=== PATIENT | female | born 1945 | race Caucasian/White ===

== ENCOUNTER 2018-06-15 09:22 | Emergency (ER) | payer MEDICARE, OTHER ==
[2018-06-15] MEDS ORDERED: Lidocaine 1% w/Epinephrine 1:100K 20 ML VIAL ONE (10:50)
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
== END 2018-06-15 11:50 | disposition home or self-care (01) ==
LOC: ERS 09:22
DX: S81.812A Laceration without foreign body, left lower leg, initial encounter (principal); S00.03XA Contusion of scalp, initial encounter; E78.5 Hyperlipidemia, unspecified; J44.9 Chronic obstructive pulmonary disease, unspecified; F17.210 Nicotine dependence, cigarettes, uncomplicated; Z79.51 Long term (current) use of inhaled steroids; Z79.899 Other long term (current) drug therapy; V03.99XA Pedestrian with other conveyance injured in collision with car, pick-up truck or van, unspecified whether traffic or nontraffic accident, initial encounter
CPT/HCPCS: 12002; 70450; J2001

== ENCOUNTER 2018-06-16 08:59 | Emergency (ER) | payer MEDICARE, OTHER ==
[2018-06-16] MEDS ORDERED: Bacitracin Zinc 1 Packet ONE (10:40)
== END 2018-06-16 10:53 | disposition home or self-care (01) ==
LOC: ERS 08:59
DX: S50.311A Abrasion of right elbow, initial encounter (principal); S50.811A Abrasion of right forearm, initial encounter; S81.812D Laceration without foreign body, left lower leg, subsequent encounter; E78.5 Hyperlipidemia, unspecified; J44.9 Chronic obstructive pulmonary disease, unspecified; F17.210 Nicotine dependence, cigarettes, uncomplicated; Z79.899 Other long term (current) drug therapy; Z79.51 Long term (current) use of inhaled steroids; V03.99XA Pedestrian with other conveyance injured in collision with car, pick-up truck or van, unspecified whether traffic or nontraffic accident, initial encounter
CPT/HCPCS: 99282

== ENCOUNTER 2018-07-27 08:47 | Outpatient (CLI) | payer MEDICARE ==
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
== END 2018-07-27 08:48 | disposition home or self-care (01) ==
LOC: BICMRI 08:47
PROVIDERS: ATTEND Physician Assistant Medical
DX: S32.009D Unspecified fracture of unspecified lumbar vertebra, subsequent encounter for fracture with routine healing (principal); M47.816 Spondylosis without myelopathy or radiculopathy, lumbar region; M47.814 Spondylosis without myelopathy or radiculopathy, thoracic region
CPT/HCPCS: 72148

== ENCOUNTER 2018-09-07 13:26 | Outpatient (CLI) | payer MEDICARE ==
[~2018-09-07 13:26] MED LIST: Gadobenate Dimeglumine 529 MG/1 ML (20ML VIAL) ONE
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
== END 2018-09-07 13:27 | disposition home or self-care (01) ==
LOC: TBSIIMAG 13:26
PROVIDERS: ATTEND Psychiatry & Neurology Neurology
DX: S06.890A Other specified intracranial injury without loss of consciousness, initial encounter (principal)
CPT/HCPCS: 70553; 82565; A9577

== ENCOUNTER 2018-09-16 07:53 | Outpatient (CLI) | payer MEDICARE ==
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
[2018-09-16] MEDS ORDERED: ISOVUE-370 76%-LOCM 1 ML ONE (10:58)
== END 2018-09-16 07:54 | disposition home or self-care (01) ==
LOC: BICCT 07:53
PROVIDERS: ATTEND Psychiatry & Neurology Neurology
DX: S06.890A Other specified intracranial injury without loss of consciousness, initial encounter (principal); I67.1 Cerebral aneurysm, nonruptured
CPT/HCPCS: 70496; Q9966

== ENCOUNTER 2018-10-24 08:31 | Outpatient (CLI) | payer MEDICARE ==
[2018-10-24 09:58] LABS: Anion Gap 15 mmol/L (10-20); BUN (Urea Nitrogen) 14 mg/dL (9.8-20.1); Calc. Creatinine Clearance 0 mL/min (70-130); Carbon Dioxide 25 mmol/L (23-31); Chloride 106 mmol/L (98-107); Estimated GFR-MDRD 89; Glucose 86 mg/dL (83-110); Potassium 4.2 mmol/L (3.5-5.1); Sodium 142 mmol/L (136-145)
== END 2018-10-24 08:32 | disposition home or self-care (01) ==
LOC: LABBT 08:31
PROVIDERS: ATTEND Neurological Surgery
DX: Z01.812 Encounter for preprocedural laboratory examination (principal); I67.1 Cerebral aneurysm, nonruptured
CPT/HCPCS: 80048

== ENCOUNTER 2018-11-02 05:51 | Day surgery (SDC) | payer MEDICARE ==
[2018-10-24 08:47] VITALS: BMI 19.9
[2018-11-02] MEDS ORDERED: Lidocaine 1% (PF) 30 ML VIAL ONE (06:33)
[2018-11-02] MEDS ORDERED: Heparin 10,000 UNITS/1 ML VIAL ONE (06:33)
[2018-11-02] MEDS ORDERED: Iopamidol 370 76% 50 ML VIAL FS ONE (09:01)
[2018-11-02] MEDS ORDERED: Fentanyl 100 MCG/2 ML VIAL ONE (10:20)
--- NOTE | 2018-11-15 19:11 | CCL ---
DATE OF PROCEDURE: 11/02/18 SURGEON: Lopez Pa M.D. RENAL DIETITIAN: None. INDICATION: Previously identified aneurysm. PROCEDURE: Cerebral angiogram. ANESTHESIA: General. TECHNIQUE: The patient is brought to the angiogram suite and placed on the table in the supine position. Both gr oins were prepped and draped in the usual sterile fashion. 1% lidocaine was used to inject the right groin. A 5 [place] micropuncture set was used to gain access to the right common femoral artery. Using a Seldinger technique, 5 [place] sheath was placed. A 5 [place] diagnostic catheter passed over Asad en guide wire and was then advanced into the aortic arch where the left cerebral artery was selective ly catheterized. An angiogram was performed. The catheter was then removed. Hemostasis was maintained with manual compression. The procedure came to an end without complication. IMPRESSION: The patient underwent successful angiography. 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 The filling portion measure s somewhere between 4 and 5 mm in greatest dimension.
== END 2018-11-02 13:08 | disposition home or self-care (01) ==
LOC: CCL 05:51
PROVIDERS: ATTEND Neurological Surgery
PROC: 03H Upper Arteries, Insertion (ICD-10-PCS; principal; 2018-11-02)
DX: I67.1 Cerebral aneurysm, nonruptured (principal); Z79.1 Long term (current) use of non-steroidal anti-inflammatories (NSAID); Z79.51 Long term (current) use of inhaled steroids; Z79.52 Long term (current) use of systemic steroids; Z79.899 Other long term (current) drug therapy
CPT/HCPCS: 36218; 36226; J1644; J2001; J3010; Q9967

== ENCOUNTER 2018-11-04 17:52 | Emergency (ER) | payer MEDICARE | END 2018-11-04 18:55 | disposition home or self-care (01) | LOC: ERS 17:52 | DX: I97.638 Postprocedural hematoma of a circulatory system organ or structure following other circulatory system procedure (principal); J44.9 Chronic obstructive pulmonary disease, unspecified; E78.5 Hyperlipidemia, unspecified; F17.210 Nicotine dependence, cigarettes, uncomplicated; Z79.899 Other long term (current) drug therapy; Z79.51 Long term (current) use of inhaled steroids | CPT/HCPCS: 99283 ==

== ENCOUNTER 2019-05-27 08:51 | Inpatient (IN) | payer MEDICARE ==
[2019-05-27] MEDS ORDERED: Magnesium 2 GM/50 ML BAG (IN WATER) ONE (09:03)
[2019-05-27] MEDS ORDERED: methylPREDNISolone Sod Succ/PF 125 MG/2 ML VIAL ONE (09:07)
--- NOTE | 2019-05-27 09:31 | RAD ---
Portable chest: HISTORY: Cough COMPARISON: 06/19/2016 FINDINGS:There is confluent consolidation seen throughout the right upper lobe more prominent in the periphery. Diffuse interstitial prominence throughout the right lung. Left lung is clear. Heart and mediastinum unremarkable. IMPRESSION:Diffuse alveolar opacity throughout the right upper lobe peripherally with diffuse interst itial prominence throughout the right lung. Infectious and neoplastic processes are considerations.
[2019-05-27 09:34] LABS: Hemoglobin 14.5 g/dL (12.0-16.0); Mean Corpuscular HGB CONC 31.7 g/dL (32.0-36.0); Mean Corpuscular Hemoglobin 31.8 pg (27.0-31.0); Mean Platelet Volume 8.3 fL (7.4-10.4); Platelet Count 305 thou/uL (130-400); RBC Distribution Width 11.7 % (11.5-14.5); Red Blood Cell (RBC) Count 4.58 mill/uL (4.20-5.40); White Blood Cell (WBC) Count 14.2 thou/uL (4.8-10.8)
[2019-05-27 09:47] LABS: Band 7 % (5-11); Lymphocytes 3 % (21-51); MDiff Complete? YES; Metamyelocyte 1 % (0-0); Monocytes 4 % (0-10); Neutrophil 85 % (42-75); Platelet Morphology Comment Appears Adequate; Vacuoles MODERATE
[2019-05-27 09:50] LABS: ALT (SGPT) 14 U/L (8-55); AST (SGOT) 21 U/L (5-34); Albumin 3.6 g/dL (3.4-4.8); Alkaline Phosphatase 133 U/L (40-110); Anion Gap 20 mmol/L (10-20); BUN (Urea Nitrogen) 15 mg/dL (9.8-20.1); Bilirubin, Total 0.7 mg/dL (0.2-1.2); CK (CPK) 26 U/L (29-168); Calc. Creatinine Clearance 0 mL/min (70-130); Calcium 9.9 mg/dL (7.8-10.44); Carbon Dioxide 21 mmol/L (23-31); Chloride 99 mmol/L (98-107); Estimated GFR-MDRD 71; Globulin 3.7 g/dL (2.4-3.5); Glucose 88 mg/dL (83-110); Lipase 8 U/L (8-78); Potassium 3.7 mmol/L (3.5-5.1); Protein, Total 7.3 g/dL (6.0-8.3); Sodium 136 mmol/L (136-145)
[2019-05-27 10:05] LABS: ALV-art Gradient 99.625 (0-20); Actual Bicarbonate (HCO3a) 18.7 mEq/L (22-28); Analyzer IN Cardio ER; Base Excess (BEa) -3.5 mEq/L (-2.0 to +3.0); CO2 Tension 26.7 mmHg (35.0-45.0); Calcium, Ionized 1.19 mmol/L (1.12-1.30); Carboxyhemoglobin (COHb) 1.7 gm% (0.0-3.0); Hemoglobin (Hb) 13.5 g/dL (12.0-16.0); O2 Tension (PaO2) 80.9 mmHg (> 70.0); Potassium - ABG Lab 3.21 mmol/L (3.70-5.30); Puncture Site LR; pH, Arterial 7.46 (7.35-7.45)
[2019-05-27] MEDS ORDERED: Acetaminophen 500 MG TAB ONE (10:12)
[2019-05-27] MEDS ORDERED: Azithromycin 500 MG VIAL ONE (10:12)
[2019-05-27] MEDS ORDERED: Iopamidol-370 76% 500 ML 1 ML ONE (11:02)
--- NOTE | 2019-05-27 11:12 | CT ---
EXAM: CTA of the chest HISTORY: Coughing up blood COMPARISON: None TECHNIQUE: Multiple contiguous axial images were obtained a CTA of the chest with contrast per pulmon carmen embolism protocol. 3-D oblique MIP reformats and direct coronal reformats were performed. FINDINGS: HEART: Normal in size without focal cardiac abnormality. PULMONARY ARTERIES: Normal in caliber without filling defects to suggest pulmonary emboli. MEDIASTINUM: No hilar or mediastinal lymphadenopathy. LUNGS: Consolidation is seen in the right upper and middle lobes. Central cavitation is seen in these areas of consolidation. Emphysematous changes are seen throughout the lungs. No infiltrates are seen in the right lower lobe or left lung. PLEURAL SPACE: No pleural effusion or pneumothorax. CHEST WALL SOFT TISSUES: Unremarkable VISUALIZED OSSEOUS STRUCTURES: Unremarkable VISUALIZED SUBDIAPHRAGMATIC STRUCTURES: Unremarkable IMPRESSION: 1. No evidence of pulmonary thromboembolism 2. Right upper and middle lobe infiltrates with central cavitation. An infectious process is likely. Tuberculosis must be excluded.
[2019-05-27] MEDS ORDERED: Acetaminophen 325 MG TAB PO PRN (13:23)
[2019-05-27 16:01] VITALS: BMI 21.4
--- NOTE | 2019-05-27 16:59 | CON ---
DATE OF CONSULTATION: 05/27/2019 This encompassed 70 minutes of time, of that time, greater than 50% was spent with the patient and/or the patient's unit in the emergency room. CONSULTING PHYSICIAN: Hospitalist Group. REASON FOR CONSULTATION: Pneumonia. HISTORY OF PRESENT ILLNESS: This is a 74-year-old female, who presents with a 3-day history of increasing shortness of breath, wheezing, and hemoptysis. She tells me she has lost approximately 15 pounds in the last 3 months. She has a history of heavy smoking and continues to smoke on and off. She is a patient of Dr. Martin Donovan. PAST MEDICAL HISTORY: 1. COPD. 2. Hyperlipidemia. PAST SURGICAL HISTORY: Tonsillectomy, tubal ligation. ALLERGIES: NONE. MEDICATIONS: Prior to admission, she takes some type of Ventolin metered-dose inhaler. Also takes, Crestor 20 mg daily. SOCIAL HISTORY: Smokes 6 to 12 cigarettes per day. Has smoked one pack a day for most of her adult life. Does not consume alcohol. Lives alone by herself. REVIEW OF SYSTEMS: Remarkable for weight loss. No night sweats. No fever. No chills. She has had hemoptysis mixed with sputum. 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 PHYSICAL EXAMINATION: VITAL SIGNS: Her temperature is 99.3, pulse 113, respirations 26, and O2 saturation is about 94% on 4 L. HEENT: Unremarkable. NECK: No adenopathy or JVD. LUNGS: She has inspiratory crackles on the right. She has diffuse bilateral wheezing. CARDIOVASCULAR: S1 and S2. Regular. ABDOMEN: Soft and nontender. EXTREMITIES: No clubbing, cyanosis, or edema. LABORATORY DATA: White blood cell count 14.2, hematocrit 45.9, and platelet count 305. PH of 7.46, pCO2 of 26, pO2 of 81, that is on BiPAP 14/6 with FiO2 of 30%. Sodium 136, potassium 3.7, chloride 99, CO2 of 21, BUN 15, creatinine 0.7, and glucose 88. IMAGING DATA: CT of the chest was reviewed in detail. She has a necrotizing infiltrate/possible mass in the right upper lobe. There is cavitation to this. I do not see any discrete lymphadenopathy. ASSESSMENT: 1. Chronic obstructive pulmonary disease with exacerbation. 2. Acute hypoxic respiratory failure. 3. Infiltrate indicative of either pneumonia, tuberculosis, or lung cancer. The history of recent weight loss would lead me to believe lung cancer is very high on the differential. RECOMMENDATIONS: 1. Right now, she looks stable enough to take off the BiPAP. She will be treated with steroids, antibiotics, and nebulization treatments. Sputum will be sent off for AFB. 2. Further disposition to follow based on test results. Job ID: [id number]
[2019-05-27] MEDS: Piperacillin/Tazobactam 3.375 GM in Sodium Chloride 0.9% 100 ML IVPB SCH ×2 (17:24→23:12)
[2019-05-27] MEDS: methylPREDNISolone Sod Succ 40 MG VIAL IVP SCH ×2 (17:25→23:12)
[2019-05-27] MEDS: Famotidine 20 MG TAB PO SCH (20:03)
[2019-05-27] MEDS: Vancomycin HCl 1 GM in Premix Bag 1 BAG IVPB SCH (20:04)
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
[2019-05-28 03:56] LABS: Band 14 % (5-11); Hemoglobin 12.7 g/dL (12.0-16.0); Lymphocytes 6 % (21-51); MDiff Complete? YES; Mean Corpuscular HGB CONC 30.6 g/dL (32.0-36.0); Mean Corpuscular Hemoglobin 30.9 pg (27.0-31.0); Mean Platelet Volume 8.3 fL (7.4-10.4); Monocytes 11 % (0-10); Neutrophil 69 % (42-75); Platelet Count 221 thou/uL (130-400); Platelet Morphology Comment Appears Adequate; RBC Distribution Width 11.8 % (11.5-14.5); RBC Morphology Normal; Red Blood Cell (RBC) Count 4.11 mill/uL (4.20-5.40); White Blood Cell (WBC) Count 8.1 thou/uL (4.8-10.8)
[2019-05-28 04:02] LABS: ALT (SGPT) 10 U/L (8-55); AST (SGOT) 25 U/L (5-34); Albumin 2.7 g/dL (3.4-4.8); Alkaline Phosphatase 101 U/L (40-110); Anion Gap 12 mmol/L (10-20); BUN (Urea Nitrogen) 12 mg/dL (9.8-20.1); Bilirubin, Total 0.4 mg/dL (0.2-1.2); Calc. Creatinine Clearance 59 mL/min (70-130); Calcium 9.1 mg/dL (7.8-10.44); Carbon Dioxide 22 mmol/L (23-31); Chloride 105 mmol/L (98-107); Estimated GFR-MDRD Greater than 90; Globulin 3.1 g/dL (2.4-3.5); Glucose 147 mg/dL (83-110); Potassium 3.2 mmol/L (3.5-5.1); Protein, Total 5.8 g/dL (6.0-8.3); Sodium 136 mmol/L (136-145)
[2019-05-28] MEDS: methylPREDNISolone Sod Succ 40 MG VIAL IVP SCH ×4 (05:12→23:26)
[2019-05-28] MEDS: Piperacillin/Tazobactam 3.375 GM in Sodium Chloride 0.9% 100 ML IVPB SCH ×4 (05:12→23:26)
--- NOTE | 2019-05-28 08:00 | RAD ---
EXAM: Single view of the chest HISTORY: Pneumonia COMPARISON: 05/27/2019 FINDINGS: Single view of the chest shows a normal sized cardiomediastinal silhouette. There is a stab le area of consolidation with areas of central cavitation in the right upper lobe. The bones are unremarkable. IMPRESSION: Stable right upper lobe infiltrate.
--- NOTE | 2019-05-28 08:37 | PDOC.HOSPP ---
- Subjective Encounter Date: 05/28/19 Encounter Time: 08:35 Subjective: Ms. Sanchez was seen today in follow-up of acute respiratory failure and pneumonia. She says she feels better today. She continues to cough, but has not noted any blood. - Objective Vital Signs & Weight: Vital Signs (12 hours) Temp Pulse Resp Pulse Ox 05/28/19 06:46 95 05/28/19 06:45 74 22 H 95 05/28/19 03:38 94 L 05/28/19 03:00 98 F 05/27/19 23:20 94 L 05/27/19 23:00 97.5 F L Weight Weight 106 lb 7.732 oz Most Recent Monitor Data Heart Rate from ECG 73 NIBP 122/60 NIBP BP-Mean 80 Respiration from ECG 24 SpO2 92 I&O: 05/27/19 05/28/19 05/29/19 06:59 06:59 06:59 Intake Total 1119 Output Total 1000 0 Balance 119 0 Result Diagrams: 05/28/19 03:04 05/28/19 03:04 Hospitalist ROS - Medication Medications: Active Medications Generic Name Dose Route Start Last Admin Trade Name Freq PRN Reason Stop Dose Admin Albuterol/Ipratropium 3 ml 05/27/19 14:30 05/28/19 06:45 Duoneb NEB 3 ml [id number] JUJU Administration Famotidine 20 mg 05/27/19 21:00 05/27/19 20:03 Pepcid PO 20 mg BID JUJU Administration Piperacillin Sod/Tazobactam 100 mls @ 200 mls/hr 05/27/19 18:00 05/28/19 05: 12 Sod 3.375 gm/ Sodium Chloride IVPB 100 mls Q6HR JUJU Administration Vancomycin HCl 1 gm/ Device 200 mls @ 200 mls/hr 05/27/19 21:00 05/27/19 20: 04 IVPB 200 mls Q12HR JUJU Administration Methylprednisolone Sodium Succinate 40 mg 05/27/19 18:00 05/28/19 05:12 Solu-Medrol IVP 40 mg Q6HR JUJU Administration Sodium Chloride 10 ml 05/27/19 21:00 05/27/19 20:04 Flush - Normal Saline IVF 10 ml Q12HR JUJU Administration - Exam Eye: PERRL Heart: RRR, no murmur, no gallops, no rubs, normal peripheral pulses Respiratory: rales, wheezes (+ rales at both bases R>L, as well as some rhonchi) Gastrointestinal: soft, non-tender, non-distended, normal bowel sounds, no palpable masses, no hepatomegaly Extremities: no cyanosis, no clubbing, no edema Neurological: cranial nerve grossly intact, no focal deficits Hosp A/P (1) Acute respiratory failure with hypoxia Code(s): J96.01 - ACUTE RESPIRATORY FAILURE WITH HYPOXIA Status: Acute (2) Pneumonia Code(s): J18.9 - PNEUMONIA, UNSPECIFIED ORGANISM Status: Acute (3) COPD (chronic obstructive pulmonary disease) Status: Chronic - Plan * Acute respiratory failure due to pneumonia- continue Zosyn and Vancomycin * AFB smears are pending * COPD- clinically stable- continue Duonebs and steroids * She has been stable off Bipap * She is stable for transfer out of the ICU
[2019-05-28] MEDS: Vancomycin HCl 1 GM in Premix Bag 1 BAG IVPB SCH ×2 (08:40→20:14)
[2019-05-28] MEDS: Famotidine 20 MG TAB PO SCH ×2 (08:40→20:14)
[2019-05-28] MEDS ORDERED: Prevnar 13-Val Conj/PF 0.5 ML SYRINGE IM ONE (09:00)
[2019-05-28] MEDS ORDERED: FLU VACC TS2019-20(65YR UP)/PF 180 MCG/0.5 ML SYRINGE IM ONE (09:00)
[2019-05-28] MEDS ORDERED: Potassium Chloride 20 MEQ TAB PO SCH (09:30)
[2019-05-28] MEDS ORDERED: Fluticasone Propionate Nasal Spray 16 gm Bottle NASAL SCH (09:30)
--- NOTE | 2019-05-28 09:38 | PRG ---
DATE OF SERVICE: 05/28/2019 SUBJECTIVE: She has not required BiPAP since coming up from the ER. She says she is breathing better. She is no longer coughing up blood, but is coughing up some purulent sputum. OBJECTIVE: VITAL SIGNS: On exam, temperature 98.0, pulse 78, blood pressure 134/77, O2 saturation 92%. HEENT: Unremarkable. NECK: No JVD. LUNGS: Crackles in right upper lobe. CARDIOVASCULAR: S1 and S2, regular. ABDOMEN: Soft. EXTREMITIES: No edema. LABORATORY DATA: White blood cell count 8.1, hematocrit 41.5, and platelet count 221. Sodium 136, potassium 3.2, chloride 105, CO2 of 22, BUN 12, creatinine 0.6, glucose 147. ASSESSMENT: Right upper lobe necrotizing pneumonia versus TB versus malignancy. PLAN: We are treating her for pneumonia with Zosyn and vancomycin. We are awaiting sputum results for AFB. If all ends up negative, then bronchoscopy in the future. I will go ahead and taper her steroids down. She can be transferred out to the medical floor. Job ID: [id number]
[2019-05-28] MEDS: Rosuvastatin 20 MG TAB PO SCH (20:14)
[2019-05-28] MEDS: Montelukast Sodium 10 mg Tablet PO SCH (20:14)
[2019-05-28] MEDS: Meloxicam 15 MG TAB PO SCH (20:14)
[2019-05-28] MEDS: Fluticasone Propionate Nasal Spray 16 gm Bottle NASAL SCH (20:15)
[2019-05-29] MEDS: Piperacillin/Tazobactam 3.375 GM in Sodium Chloride 0.9% 100 ML IVPB SCH ×3 (05:51→17:37)
[2019-05-29] MEDS: methylPREDNISolone Sod Succ 40 MG VIAL IVP SCH ×3 (05:51→21:08)
[2019-05-29 06:06] LABS: Anion Gap 13 mmol/L (10-20); BUN (Urea Nitrogen) 24 mg/dL (9.8-20.1); Calc. Creatinine Clearance 29 mL/min (70-130); Calcium 9.1 mg/dL (7.8-10.44); Carbon Dioxide 22 mmol/L (23-31); Chloride 107 mmol/L (98-107); Estimated GFR-MDRD 39; Glucose 145 mg/dL (83-110); Potassium 3.8 mmol/L (3.5-5.1); Sodium 138 mmol/L (136-145)
[2019-05-29] MEDS: Famotidine 20 MG TAB PO SCH (08:32)
[2019-05-29] MEDS: Vancomycin HCl 1 GM in Premix Bag 1 BAG IVPB SCH (08:32)
--- NOTE | 2019-05-29 09:04 | PRG ---
DATE OF SERVICE: 05/29/2019 SUBJECTIVE: Patient reports that she feels better. She had no acute complaints other than weird dreams from the steroids. OBJECTIVE: VITAL SIGNS: Temperature is 97.7, pulse 83, respirations 20, O2 saturation 94% on 3 L, blood pressure 111/65. HEENT: Unremarkable. NECK: No adenopathy or JVD. LUNGS: She has coarse breath sounds on the right, clear on the left. CARDIAC: S1, S2. Regular. ABDOMEN: Soft. EXTREMITIES: No edema. LABORATORY DATA: Sodium 138, potassium 3.8, chloride 107, CO2 of 22, BUN 24, creatinine 1.3, glucose 145. ASSESSMENT: Right upper lobe pneumonia which seems to be improving with antibiotics. PLAN: I will get a followup x-ray tomorrow and see how we are doing. Her first AFB is negative. She has 2 more pending. If she does not have clearing on her x-ray, may need bronchoscopy at some point. For the time being, though I think treatment for pneumonia is the way to go. Job ID: [id number]
[2019-05-29] MEDS: Fluticasone Propionate Nasal Spray 16 gm Bottle NASAL SCH ×2 (10:19→21:07)
--- NOTE | 2019-05-29 17:44 | PDOC.HOSPP ---
- Subjective Encounter Date: 05/29/19 Encounter Time: 17:42 Subjective: Ms. Sanchez was seen today in follow-up of Pneumonia. She says she is breathing better. She does not have any new complaints. - Objective Vital Signs & Weight: Vital Signs (12 hours) Temp Pulse Resp BP Pulse Ox 05/29/19 14:21 83 116 H 95 05/29/19 11:36 87 16 93 L 05/29/19 08:38 97.7 F 83 20 111/67 94 L 05/29/19 08:02 97 05/29/19 08:01 77 16 97 05/29/19 08:00 94 L Weight Weight 106 lb 7.732 oz Most Recent Monitor Data Heart Rate from ECG 83 NIBP 135/67 NIBP BP-Mean 89 Respiration from ECG 28 SpO2 92 I&O: 05/28/19 05/29/19 05/30/19 06:59 06:59 06:59 Intake Total 1119 908 Output Total 1000 300 Balance 119 608 Result Diagrams: 05/28/19 03:04 05/29/19 05:16 Hospitalist ROS - Medication Medications: Active Medications Generic Name Dose Route Start Last Admin Trade Name Freq PRN Reason Stop Dose Admin Albuterol/Ipratropium 3 ml 05/27/19 14:30 05/29/19 14:21 Duoneb NEB 3 ml [id number] JUJU Administration Fluticasone Propionate 0 gm 05/28/19 21:00 05/29/19 10:19 Flonase Nasal [place] NASAL 1 spray BID JUJU Administration Piperacillin Sod/Tazobactam 100 mls @ 200 mls/hr 05/27/19 18:00 05/29/19 17: 37 Sod 3.375 gm/ Sodium Chloride IVPB 100 mls Q6HR JUJU Administration Meloxicam 15 mg 05/28/19 21:00 05/28/19 20:14 Mobic PO 15 mg HS JUJU Administration Methylprednisolone Sodium Succinate 20 mg 05/29/19 09:00 05/29/19 09:00 Solu-Medrol IVP Not Given BID JUJU Montelukast Sodium 10 mg 05/28/19 21:00 05/28/19 20:14 Singulair PO 10 mg HS JUJU Administration Rosuvastatin Calcium 20 mg 05/28/19 21:00 05/28/19 20:14 Crestor PO 20 mg HS JUJU Administration Sodium Chloride 10 ml 05/27/19 21:00 05/29/19 08:32 Flush - Normal Saline IVF 10 ml Q12HR JUJU Administration - Exam Eye: PERRL Heart: RRR, no murmur, no gallops, no rubs, normal peripheral pulses Respiratory: CTAB, rales (+ rales at the right upper and mid lung field) Gastrointestinal: soft, non-tender, non-distended, normal bowel sounds, no palpable masses, no hepatomegaly Extremities: no cyanosis Hosp A/P (1) Acute respiratory failure with hypoxia Code(s): J96.01 - ACUTE RESPIRATORY FAILURE WITH HYPOXIA Status: Acute (2) Pneumonia Code(s): J18.9 - PNEUMONIA, UNSPECIFIED ORGANISM Status: Acute (3) COPD (chronic obstructive pulmonary disease) Status: Chronic - Plan * Acute respiratory failure due to pneumonia- continue Zosyn and Vancomycin * AFB smears- she has had 2/3 negative so far * COPD- clinically stable- continue Duonebs and steroids * Begin to wean oxygen as tolerated * Encourage ambulation
[2019-05-29] MEDS: Meloxicam 15 MG TAB PO SCH (21:07)
[2019-05-29] MEDS: Montelukast Sodium 10 mg Tablet PO SCH (21:08)
[2019-05-29] MEDS: Rosuvastatin 20 MG TAB PO SCH (21:11)
[2019-05-30] MEDS: Piperacillin/Tazobactam 3.375 GM in Sodium Chloride 0.9% 100 ML IVPB SCH ×4 (00:10→18:13)
[2019-05-30 06:29] LABS: Anion Gap 13 mmol/L (10-20); BUN (Urea Nitrogen) 31 mg/dL (9.8-20.1); Calc. Creatinine Clearance 23 mL/min (70-130); Calcium 9.1 mg/dL (7.8-10.44); Carbon Dioxide 21 mmol/L (23-31); Chloride 108 mmol/L (98-107); Estimated GFR-MDRD 30; Glucose 132 mg/dL (83-110); Potassium 3.7 mmol/L (3.5-5.1); Sodium 138 mmol/L (136-145)
[2019-05-30] MEDS: Famotidine 20 MG TAB PO SCH (09:01)
[2019-05-30] MEDS: Fluticasone Propionate Nasal Spray 16 gm Bottle NASAL SCH ×2 (09:02→21:12)
[2019-05-30] MEDS: methylPREDNISolone Sod Succ 40 MG VIAL IVP SCH ×2 (09:02→21:12)
--- NOTE | 2019-05-30 09:29 | PRG ---
DATE OF SERVICE: 05/30/2019 SUBJECTIVE: She continues to feel better slowly, had no complaints. OBJECTIVE: VITAL SIGNS: Temperature 97.9, pulse 63, respirations 18, O2 saturation 96% on 2 L, and blood pressure 151/77. HEENT: Unremarkable. NECK: No adenopathy or JVD. LUNGS: Right upper lobe crackles. Left side clear. CARDIAC: S1 and S2. Regular. ABDOMEN: Soft. EXTREMITIES: No edema. LABORATORY DATA: Her three AFBs were negative. No new labs were posted today except for chemistry. Sodium 130, potassium 3.7, BUN 31, creatinine 1.6, and glucose 132. Her chest x-ray shows a continued right upper lobe infiltrate, although the aeration looks slightly better compared to previous. ASSESSMENT: Necrotizing pneumonia, which does not appear to be secondary to tuberculosis. RECOMMENDATIONS: 1. Continue treatment with the Zosyn for several more days. 2. We will have to follow the x-ray as an outpatient. If she does not show resolution with time, then she will need bronchoscopy. The patient can be taken out of respiratory isolation today. Job ID: [id number]
--- NOTE | 2019-05-30 09:58 | RAD ---
PORTABLE CHEST: Date: 05/30/2019 PROVIDED CLINICAL HISTORY: Pneumonia. FINDINGS: Comparison with 05/28/2019. Dense consolidation involving the right hemithorax is redemonstrated, similar to prior. Cardiac and m ediastinal silhouette is unchanged in appearance. The left lung appears clear. There is no pleural fl uid or pneumothorax apparent. IMPRESSION: Stable radiographic appearance of the chest. POS: TPC
--- NOTE | 2019-05-30 15:49 | PDOC.HOSPP ---
- Subjective Encounter Date: 05/30/19 Encounter Time: 15:48 Subjective: Ms. Sanchez was seen today in follow-up of pneumonia. She says she feels a little better. She has less cough, and still has some difficulty with breathing, but it is when she is up moving around. - Objective Vital Signs & Weight: Vital Signs (12 hours) Temp Pulse Resp BP Pulse Ox 05/30/19 14:54 68 18 94 L 05/30/19 10:50 69 20 95 05/30/19 08:00 96 05/30/19 07:54 97.9 F 63 18 151/77 H 96 05/30/19 07:51 63 18 98 Weight Weight 106 lb 7.732 oz Most Recent Monitor Data Heart Rate from ECG 83 NIBP 135/67 NIBP BP-Mean 89 Respiration from ECG 28 SpO2 92 I&O: 05/29/19 05/30/19 05/31/19 06:59 06:59 06:59 Intake Total 908 1600 460 Output Total 300 Balance 608 1600 460 Result Diagrams: 05/28/19 03:04 05/30/19 05:52 Hospitalist ROS - Medication Medications: Active Medications Generic Name Dose Route Start Last Admin Trade Name Freq PRN Reason Stop Dose Admin Albuterol/Ipratropium 3 ml 05/27/19 14:30 05/30/19 14:54 Duoneb NEB 3 ml [id number] JUJU Administration Famotidine 20 mg 05/30/19 09:00 05/30/19 09:01 Pepcid PO 20 mg DAILY JUJU Administration Fluticasone Propionate 0 gm 05/28/19 21:00 05/30/19 09:02 Flonase Nasal [place] NASAL 1 spray BID JUJU Administration Piperacillin Sod/Tazobactam 100 mls @ 200 mls/hr 05/27/19 18:00 05/30/19 13: 23 Sod 3.375 gm/ Sodium Chloride IVPB 100 mls Q6HR JUJU Administration Meloxicam 15 mg 05/28/19 21:00 05/29/19 21:07 Mobic PO 15 mg HS JUJU Administration Methylprednisolone Sodium Succinate 20 mg 05/29/19 09:00 05/30/19 09:02 Solu-Medrol IVP 20 mg BID JUJU Administration Montelukast Sodium 10 mg 05/28/19 21:00 05/29/19 21:08 Singulair PO 10 mg HS JUJU Administration Rosuvastatin Calcium 20 mg 05/28/19 21:00 05/29/19 21:11 Crestor PO 20 mg HS JUJU Administration Sodium Chloride 10 ml 05/27/19 21:00 05/30/19 09:03 Flush - Normal Saline IVF 10 ml Q12HR JUJU Administration - Exam Eye: PERRL Heart: RRR, no murmur, no gallops, no rubs, normal peripheral pulses Respiratory: CTAB (+ only an occasional wheeze) Gastrointestinal: soft, non-tender, non-distended, normal bowel sounds Extremities: no cyanosis, no clubbing, no edema Hosp A/P (1) Acute respiratory failure with hypoxia Code(s): J96.01 - ACUTE RESPIRATORY FAILURE WITH HYPOXIA Status: Acute (2) Pneumonia Code(s): J18.9 - PNEUMONIA, UNSPECIFIED ORGANISM Status: Acute (3) COPD (chronic obstructive pulmonary disease) Status: Chronic (4) Tobacco abuse Code(s): Z72.0 - TOBACCO USE Status: Chronic - Plan * Acute respiratory failure due to pneumonia- continue Zosyn for now * AFB smears- were negative X3- respiratory isolation has been lifted * COPD- clinically stable- continue Duonebs and steroids * Tobacco abuse- brief counseling was offered. She says she will try Chantix again. She says this helped her to cut back from a pack a day to 5-8 a day * Continue to try to wean oxygen * Encourage ambulation
[2019-05-30] MEDS: Rosuvastatin 20 MG TAB PO SCH (21:11)
[2019-05-30] MEDS: Montelukast Sodium 10 mg Tablet PO SCH (21:11)
[2019-05-31] MEDS: Piperacillin/Tazobactam 3.375 GM in Sodium Chloride 0.9% 100 ML IVPB SCH ×5 (00:21→23:45)
[2019-05-31 06:12] LABS: Anion Gap 15 mmol/L (10-20); BUN (Urea Nitrogen) 34 mg/dL (9.8-20.1); Calc. Creatinine Clearance 21 mL/min (70-130); Calcium 8.9 mg/dL (7.8-10.44); Carbon Dioxide 21 mmol/L (23-31); Chloride 108 mmol/L (98-107); Estimated GFR-MDRD 28; Glucose 134 mg/dL (83-110); Potassium 4.2 mmol/L (3.5-5.1); Sodium 140 mmol/L (136-145)
--- NOTE | 2019-05-31 08:58 | PRG ---
DATE OF SERVICE: 05/31/2019 SUBJECTIVE: The patient is coughing up more sputum. She says she feels a little better. OBJECTIVE: VITAL SIGNS: Temperature 97.6, pulse 82, respirations 16, O2 saturation 96%, and blood pressure 130/62. HEENT: Unremarkable. NECK: No adenopathy or JVD. LUNGS: Better air movement right upper lobe. Left side clear. CARDIAC: S1 and S2. Regular. ABDOMEN: Soft. EXTREMITIES: No edema. ASSESSMENT: Necrotizing right upper lobe pneumonia. PLAN: Continue IV Zosyn. Recheck chest x-ray tomorrow. I have added Mucinex for mucolytic. Job ID: [id number]
[2019-05-31] MEDS: methylPREDNISolone Sod Succ 40 MG VIAL IVP SCH ×2 (09:04→21:00)
[2019-05-31] MEDS: Fluticasone Propionate Nasal Spray 16 gm Bottle NASAL SCH ×2 (09:05→21:00)
[2019-05-31] MEDS: guaiFENesin/DM ER PO SCH ×2 (09:05→21:00)
[2019-05-31] MEDS: Famotidine 20 MG TAB PO SCH (09:05)
--- NOTE | 2019-05-31 16:23 | PDOC.HOSPP ---
- Subjective Encounter Date: 05/31/19 Encounter Time: 16:21 Subjective: Ms. Sanchez was seen today in follow-up of pneumonia and respiratory failure. She says she is beginning to feel better. She is less short of breath. She does mention very thick phlem. - Objective Vital Signs & Weight: Vital Signs (12 hours) Temp Pulse Resp BP Pulse Ox 05/31/19 14:57 82 16 99 05/31/19 11:37 79 15 98 05/31/19 08:19 97.6 F 82 16 130/62 96 05/31/19 08:02 86 18 100 05/31/19 08:00 96 Weight Weight 106 lb 7.732 oz Most Recent Monitor Data Heart Rate from ECG 83 NIBP 135/67 NIBP BP-Mean 89 Respiration from ECG 28 SpO2 92 I&O: 05/30/19 05/31/19 06/01/19 06:59 06:59 06:59 Intake Total 1600 1500 360 Balance 1600 1500 360 Result Diagrams: 05/28/19 03:04 05/31/19 05:28 Hospitalist ROS - Medication Medications: Active Medications Generic Name Dose Route Start Last Admin Trade Name Freq PRN Reason Stop Dose Admin Albuterol/Ipratropium 3 ml 05/27/19 14:30 05/31/19 14:57 Duoneb NEB 3 ml [id number] JUJU Administration Famotidine 20 mg 05/30/19 09:00 05/31/19 09:05 Pepcid PO 20 mg DAILY JUJU Administration Fluticasone Propionate 0 gm 05/28/19 21:00 05/31/19 09:05 Flonase Nasal [place] NASAL 1 spray BID JUJU Administration Guaifenesin/Dextromethorphan 1 tab 05/31/19 09:00 05/31/19 09:05 Mucinex Dm PO 1 tab Q12HR JUJU Administration Piperacillin Sod/Tazobactam 100 mls @ 200 mls/hr 05/27/19 18:00 05/31/19 11: 31 Sod 3.375 gm/ Sodium Chloride IVPB 100 mls Q6HR JUJU Administration Methylprednisolone Sodium Succinate 20 mg 05/29/19 09:00 05/31/19 09:04 Solu-Medrol IVP 20 mg BID JUJU Administration Montelukast Sodium 10 mg 05/28/19 21:00 05/30/19 21:11 Singulair PO 10 mg HS JUUJ Administration Rosuvastatin Calcium 20 mg 05/28/19 21:00 05/30/19 21:11 Crestor PO 20 mg HS JUJU Administration Sodium Chloride 10 ml 05/27/19 21:00 05/31/19 09:11 Flush - Normal Saline IVF 10 ml Q12HR JUJU Administration - Exam Eye: PERRL Heart: RRR, no murmur, no gallops, no rubs, normal peripheral pulses Respiratory: CTAB, no wheezes, no rales, no ronchi Gastrointestinal: soft, non-tender, non-distended, normal bowel sounds, no palpable masses, no hepatomegaly Extremities: no cyanosis, no clubbing, no edema Hosp A/P (1) Acute respiratory failure with hypoxia Code(s): J96.01 - ACUTE RESPIRATORY FAILURE WITH HYPOXIA Status: Acute (2) Pneumonia Code(s): J18.9 - PNEUMONIA, UNSPECIFIED ORGANISM Status: Acute (3) COPD (chronic obstructive pulmonary disease) Status: Chronic (4) Tobacco abuse Code(s): Z72.0 - TOBACCO USE Status: Chronic - Plan * Acute respiratory failure due to pneumonia- continue Zosyn for now * TB has been essentially ruled out * COPD- clinically stable- continue Duonebs and steroids * Changes per PCCM noted * Continue to try to wean oxygen * Encourage ambulation
[2019-05-31] MEDS: Saccharomyces boulardii 250 MG CAP PO SCH (17:10)
[2019-05-31] MEDS: Rosuvastatin 20 MG TAB PO SCH (21:01)
[2019-05-31] MEDS: Montelukast Sodium 10 mg Tablet PO SCH (21:01)
[2019-05-31 23:07] LABS: QuantiFERON-TB Gold Plus Indeterminate (Negative)
[2019-06-01 06:04] LABS: Anion Gap 15 mmol/L (10-20); BUN (Urea Nitrogen) 36 mg/dL (9.8-20.1); Calc. Creatinine Clearance 19 mL/min (70-130); Calcium 8.5 mg/dL (7.8-10.44); Carbon Dioxide 22 mmol/L (23-31); Chloride 108 mmol/L (98-107); Estimated GFR-MDRD 25; Glucose 119 mg/dL (83-110); Potassium 4.5 mmol/L (3.5-5.1); Sodium 140 mmol/L (136-145)
[2019-06-01] MEDS: Piperacillin/Tazobactam 3.375 GM in Sodium Chloride 0.9% 100 ML IVPB SCH (06:18)
--- NOTE | 2019-06-01 08:25 | RAD ---
Chest AP view INDICATION: History of pneumonia COMPARISON: May 30, 2019 FINDINGS: Lungs:Right upper lobe airspace consolidation has mildly improved from the comparison examination. CO PD changes stable. Cardiac silhouette:Mild cardiomegaly is stable Pulmonary vasculature:Normal Pleural spaces:No pleural effusion or pneumothorax is demonstrated. Upper abdomen:No abnormality seen. Osseous structures: No acute osseous abnormality. Additional findings:None. IMPRESSION: Mild interval improvement in the airspace consolidation the right upper lobe. Stable COPD change.
[2019-06-01] MEDS: guaiFENesin/DM ER PO SCH ×2 (09:23→21:07)
[2019-06-01] MEDS: Saccharomyces boulardii 250 MG CAP PO SCH (09:23)
[2019-06-01] MEDS: methylPREDNISolone Sod Succ 40 MG VIAL IVP SCH (09:23)
[2019-06-01] MEDS: Fluticasone Propionate Nasal Spray 16 gm Bottle NASAL SCH ×2 (09:23→21:18)
[2019-06-01] MEDS: Famotidine 20 MG TAB PO SCH (09:23)
--- NOTE | 2019-06-01 11:04 | PRG ---
DATE OF SERVICE: 06/01/2019 SUBJECTIVE: The patient is doing a little better. No acute complaints. OBJECTIVE: VITAL SIGNS: Temperature 97.7, pulse 79, respirations 18, O2 saturation 93% on 3 L, blood pressure 137/71. HEENT: Unremarkable. NECK: No adenopathy or JVD. LUNGS: Improved air entry bilaterally. CARDIAC: S1, S2. Regular. ABDOMEN: Soft. EXTREMITIES: No edema. LABORATORY DATA: Sodium 140, potassium 4.5, chloride 108, CO2 of 22, BUN 36, creatinine 1.9, glucose 119. IMAGING DATA: Chest x-ray shows interval improvement. ASSESSMENT: Right upper lobe pneumonia beginning to show clearing on serial x-rays. PLAN: 1. I will adjust the Zosyn dose down for her somewhat compromised renal function. 2. Change to oral prednisone. 3. Hopefully, home on Wednesday or Wednesday. Job ID: [id number]
[2019-06-01 11:53] LABS: Bilirubin Negative (Negative); Blood, Urine 2+ (Negative); Clarity Clear (Clear); Glucose, Urine (Dipstick) Normal (Negative); Leukocyte 250 Leu/uL (Negative); Nitrite Negative (Negative); Protein, Urine (Dipstick) 10 mg/dL (Neg-Trace); Squamous Epithelial 0-3 HPF (0-3); Urobilinogen Normal mg/dL (Less than 2); WBC/HPF 21-50 HPF (0-3)
[2019-06-01 11:55] LABS: Bacteria/HPF 1+ HPF (None Seen)
[2019-06-01 12:26] LABS: Creatinine, Urine Less than 20.00 mg/dL (47-110); Protein, Urine Random Quant 16 mg/dL (1-14); Sodium, Urine 54 mmol/L (Not Available)
[2019-06-01] MEDS: Piperacillin/Tazobactam 2.25 GM in Sodium Chloride 0.9% 100 ML IVPB SCH ×3 (12:51→23:34)
[2019-06-01] MEDS: Sodium Bicarbonate 75 MEQ in Sodium Chloride 0.45% 1,000 ML IV SCH (12:52)
--- NOTE | 2019-06-01 17:23 | PDOC.HOSPP ---
- Subjective Encounter Date: 06/01/19 Encounter Time: 17:19 Subjective: Ms. Sanchez was seen today in follow-up of Pneumonia, and acute kidney injury. She continues to feel better. - Objective Vital Signs & Weight: Vital Signs (12 hours) Temp Pulse Resp BP Pulse Ox 06/01/19 16:19 98.4 F 87 18 146/71 H 92 L 06/01/19 13:48 79 18 96 06/01/19 11:35 84 16 94 L 06/01/19 11:00 98.2 F 74 18 120/74 93 L 06/01/19 08:28 97.7 F 137/71 96 06/01/19 08:00 95 06/01/19 06:53 79 18 93 L Weight Weight 106 lb 7.732 oz Most Recent Monitor Data Heart Rate from ECG 83 NIBP 135/67 NIBP BP-Mean 89 Respiration from ECG 28 SpO2 92 I&O: 05/31/19 06/01/19 06/02/19 06:59 06:59 06:59 Intake Total 1500 600 440 Balance 1500 600 440 Result Diagrams: 05/28/19 03:04 06/01/19 05:27 Hospitalist ROS - Medication Medications: Active Medications Generic Name Dose Route Start Last Admin Trade Name Freq PRN Reason Stop Dose Admin Albuterol/Ipratropium 3 ml 05/27/19 14:30 06/01/19 13:48 Duoneb NEB 3 ml [id number] JUJU Administration Famotidine 20 mg 05/30/19 09:00 06/01/19 09:23 Pepcid PO 20 mg DAILY JUJU Administration Fluticasone Propionate 0 gm 05/28/19 21:00 06/01/19 09:23 Flonase Nasal [place] NASAL 1 spray BID JUJU Administration Guaifenesin/Dextromethorphan 1 tab 05/31/19 09:00 06/01/19 09:23 Mucinex Dm PO 1 tab Q12HR JUJU Administration Piperacillin Sod/Tazobactam 100 mls @ 200 mls/hr 06/01/19 12:00 06/01/19 12: 51 Sod 2.25 gm/ Sodium Chloride IVPB 100 mls Q6HR JUJU Administration Sodium Bicarbonate 75 meq/ 1,075 mls @ 100 mls/hr 06/01/19 11:45 01/30/20 12: 52 Sodium Chloride IV 1,075 mls INF JUJU Administration Montelukast Sodium 10 mg 05/28/19 21:00 05/31/19 21:01 Singulair PO 10 mg HS JUJU Administration Rosuvastatin Calcium 20 mg 05/28/19 21:00 05/31/19 21:01 Crestor PO 20 mg HS JUJU Administration Saccharomyces Boulardii 250 mg 05/31/19 09:00 06/01/19 09:23 Florastor PO 250 mg DAILY JUJU Administration Sodium Chloride 10 ml 05/27/19 21:00 06/01/19 09:24 Flush - Normal Saline IVF 10 ml Q12HR JUJU Administration - Exam Eye: PERRL Heart: RRR, no murmur, no gallops, no rubs, normal peripheral pulses Respiratory: CTAB (With the exception of occasional wheeze), no rales, no ronchi Gastrointestinal: soft, non-tender, non-distended, normal bowel sounds Extremities: no cyanosis, no edema Hosp A/P (1) Acute respiratory failure with hypoxia Code(s): J96.01 - ACUTE RESPIRATORY FAILURE WITH HYPOXIA Status: Acute (2) Pneumonia Code(s): J18.9 - PNEUMONIA, UNSPECIFIED ORGANISM Status: Acute (3) COPD (chronic obstructive pulmonary disease) Status: Chronic (4) Tobacco abuse Code(s): Z72.0 - TOBACCO USE Status: Chronic - Plan * Acute respiratory failure due to pneumonia- continue Zosyn * COPD- clinically stable- continue Duonebs and steroids * Acute kidney injury- discussed with Dr. Medina- likely as a result of multiple factors including IV contrast on admission, Vancomycin and Meloxicam- these has been discontinued a few days ago, and will continue to monitor her renal function * Continue to wean oxygen * Continue ambulation
[2019-06-01] MEDS: Montelukast Sodium 10 mg Tablet PO SCH (21:07)
[2019-06-01] MEDS: Rosuvastatin 20 MG TAB PO SCH (21:07)
[2019-06-02 05:47] LABS: Albumin 2.7 g/dL (3.4-4.8); Phosphorus 3.7 mg/dL (2.3-4.7)
[2019-06-02 05:51] LABS: Anion Gap 11 mmol/L (10-20); BUN (Urea Nitrogen) 37 mg/dL (9.8-20.1); Calc. Creatinine Clearance 20 mL/min (70-130); Calcium 8.5 mg/dL (7.8-10.44); Carbon Dioxide 24 mmol/L (23-31); Chloride 109 mmol/L (98-107); Estimated GFR-MDRD 26; Glucose 81 mg/dL (83-110); Potassium 3.7 mmol/L (3.5-5.1); Sodium 140 mmol/L (136-145)
[2019-06-02] MEDS: Piperacillin/Tazobactam 2.25 GM in Sodium Chloride 0.9% 100 ML IVPB SCH ×3 (06:15→17:38)
--- NOTE | 2019-06-02 08:09 | CON ---
DATE OF CONSULTATION: 06/01/2019 SERVICE: Nephrology. REASON FOR CONSULTATION: Elevated creatinine. REQUESTING PHYSICIAN: Shamar Rubalcava MD HISTORY OF PRESENT ILLNESS: A 74-year-old female with known history of COPD, osteoarthritis on analgesics for chronic pain, was admitted on May 27 due to worsening cough and shortness of breath associated with hemoptysis. The patient was started on broad-spectrum antibiotics and subsequently had to be ruled out. On presentation to the hospital, creatinine was 0.79, however, 2 days into the admission, creatinine started trending up from 0.64 to 1.32 and progressively, which did a peak of 1.95 today, necessitating Nephrology consult. The patient denied nausea, vomiting, diarrhea, or dizziness. Review of medical records showed no history of hypotensive episode, however, the patient had contrast study on presentation. She was also on meloxicam at home and this was continued since admission and only was stopped on May 30. The patient also was started on vancomycin on presentation, which has been discontinued. The patient also complained of feeling dry, dry mouth and also had some poor oral intake, which has improved lately. Cough and shortness of breath as well as have improved. PAST MEDICAL HISTORY: 1. Hyperlipidemia. 2. Osteoarthritis. 3. Chronic pain. PAST SURGICAL HISTORY: 1. Tonsillectomy. 2. Tubal ligation. 3. Cataract ectomy. FAMILY HISTORY: Significant for osteoarthritis and Parkinson's disease in family. Sister also had a cancer and another sister also had double lung transplant with unclear cause of lung failure. SOCIAL HISTORY: The patient is a current cigarette smoker, smoking about 5 cigarettes per day on the average. About 1 to 2 drinks per day. Denied recreational drug use. ALLERGIES: NONE. HOME MEDICATIONS: 1. Flonase 1 spray into both nares.. 2. Meloxicam 15 mg at bedtime. 3. Singulair 10 mg p.o. daily. 4. Crestor 20 mg daily at bedtime. 5. Albuterol HFA 2 puffs inhalation as needed. 1. Zosyn 3.375 g q.6 hours. 2. DuoNeb 3 mL nebulization every 4 hours. 3. Mucinex 1 tablet p.o. b.i.d. 4. Pepcid 20 mg p.o. daily. 5. Methylprednisolone 20 mg IVP b.i.d. 6. . 7. Florastor 250 mg p.o. daily. 8. q.4 hours p.r.n. REVIEW OF SYSTEMS: A 12-point review of system performed was negative other than pertinent positives and negatives included in the history of present illness. PHYSICAL EXAMINATION: VITAL SIGNS: Temperature 97.7, pulse , respiratory rate 18, SpO2 of 96% on 2 L nasal cannula, and blood pressure is 137/71. GENERAL: Comfortable elderly female, in no obvious distress. Afebrile. Anicteric. Acyanotic. HEENT: Normocephalic and atraumatic. Oral mucosa is dry. NECK: Supple with no JVD. CARDIOVASCULAR: Regular rhythm and rate with normal heart sounds 1 and 2. RESPIRATORY: Fair air entry bilaterally with some transmitted breath sounds, but no obvious crackle or rhonchi or use of accessory muscles. GI: Full, soft, nontender, and nondistended with normal bowel sounds. EXTREMITIES: Grossly normal looking with no edema or erythema. SKIN: No rash or erythema noted. Skin rather appear dry. BIOTECHNICIAN: Conscious, alert, and oriented x3 with appropriate mental status. Cranial nerves 2 through 12 are grossly intact. DIAGNOSTIC DATA: BMP today showed sodium 140, potassium 4.5, chloride 108, CO2 of 22, BUN 36, creatinine 1.95, glucose 119, and calcium 8.5. Of note, on presentation to the hospital on May 27, 2019, creatinine was 0.79, which went down to 0.64 the next day on May 28 before climbing up to 1.32 on May 29. It progressively has increased to a peak of 1.95 today. Chest x-ray performed earlier today showed mild interval improvement in the air space consolidation in the right upper lobe. Stable COPD changes as well as mild cardiomegaly. ASSESSMENT: 1. Acute kidney injury: This most likely due to hemodynamic factors related to volume depletion and use of meloxicam. Contrast induced nephropathy and vancomycin induced nephrotoxicity are also considerations, but seemed unlikely. However, this could not be ruled out at this time given that creatinine started trending up about 48 hours post admission, which is post exposure to these toxins. Multifactorial etiology from all the 3 cannot be ruled out, however. 2. Volume depletion due to poor oral intake and increasing related to pneumonia. 3. Pneumonia, on treatment. PLAN: 1. Start the patient on IV sodium bicarb containing IV fluids given mild metabolic acidosis. 2. Get urine electrolytes as well as urinalysis. 3. Avoid nephrotoxic agents. 4. Renally dose all medications. 5. We will recheck renal function in the morning. 6. [place] oral intake advised. Job ID: [id number]
[2019-06-02] MEDS: guaiFENesin/DM ER PO SCH ×2 (08:24→20:58)
[2019-06-02] MEDS: predniSONE 20 MG TAB PO SCH (08:25)
[2019-06-02] MEDS: Famotidine 20 MG TAB PO SCH (08:25)
[2019-06-02] MEDS: Saccharomyces boulardii 250 MG CAP PO SCH (08:25)
[2019-06-02] MEDS: Fluticasone Propionate Nasal Spray 16 gm Bottle NASAL SCH ×2 (08:25→20:58)
--- NOTE | 2019-06-02 09:15 | PRG ---
DATE OF SERVICE: 06/02/2019 SUBJECTIVE: The patient is doing fairly well. She has no acute complaints. OBJECTIVE: VITAL SIGNS: Temperature 99.3, pulse 88, respirations 16, O2 saturation 93% on 2 L, and blood pressure 148/72. HEENT: Unremarkable. NECK: No JVD. LUNGS: Improved air movement bilaterally. CARDIAC: S1 and S2. Regular. ABDOMEN: Soft. EXTREMITIES: No edema. LABORATORY DATA: Sodium 140, potassium 3.7, BUN 37, creatinine 1.8, and glucose 81. ASSESSMENT: Severe necrotizing right upper lobe pneumonia, improving with antibiotics. PLAN: She should complete IV antibiotics tomorrow. At that time, I would put her on Augmentin and treat her for one more week and she should be okay to go home if okay with the other services. She needs a followup x-ray in about 3 weeks. Job ID: [id number]
--- NOTE | 2019-06-02 15:14 | PDOC.HOSPP ---
- Subjective Encounter Date: 06/02/19 Encounter Time: 15:13 Subjective: Ms. Sanchez was seen today in follow-up of pneumonia. She says she is breathing better, no new complaints. She also says the diarrhea is slowing down. - Objective Vital Signs & Weight: Vital Signs (12 hours) Temp Pulse Resp BP BP Pulse Ox 06/02/19 11:10 85 20 92 L 06/02/19 11:00 98.3 F 85 20 149/76 H 94 L 06/02/19 08:00 93 L 06/02/19 07:51 91 L 06/02/19 07:49 88 16 91 L 06/02/19 07:36 99.3 F 85 18 148/72 H 91 L 06/02/19 04:00 98.2 F 87 16 134/76 92 L Weight Weight 106 lb 7.732 oz Most Recent Monitor Data Heart Rate from ECG 83 NIBP 135/67 NIBP BP-Mean 89 Respiration from ECG 28 SpO2 92 I&O: 06/01/19 06/02/19 06/03/19 06:59 06:59 06:59 Intake Total 600 2313 Balance 600 2313 Result Diagrams: 05/28/19 03:04 06/02/19 05:21 Hospitalist ROS - Medication Medications: Active Medications Generic Name Dose Route Start Last Admin Trade Name Neilq PRN Reason Stop Dose Admin Acetaminophen 650 mg 05/27/19 13:23 06/02/19 08:24 Tylenol PO 650 mg Q4H PRN Administration Headache/Fever/Mild Pain (1-3) Albuterol/Ipratropium 3 ml 05/27/19 14:30 06/02/19 11:10 Duoneb NEB 3 ml [id number] JUJU Administration Famotidine 20 mg 05/30/19 09:00 06/02/19 08:25 Pepcid PO 20 mg DAILY JUJU Administration Fluticasone Propionate 0 gm 05/28/19 21:00 06/02/19 08:25 Flonase Nasal [place] NASAL 1 spray BID JUJU Administration Guaifenesin/Dextromethorphan 1 tab 05/31/19 09:00 06/02/19 08:24 Mucinex Dm PO 1 tab Q12HR JUJU Administration Piperacillin Sod/Tazobactam 100 mls @ 200 mls/hr 06/01/19 12:00 06/02/19 12: 27 Sod 2.25 gm/ Sodium Chloride IVPB 100 mls Q6HR JUJU Administration Sodium Bicarbonate 75 meq/ 1,075 mls @ 100 mls/hr 06/01/19 11:45 06/01/19 12: 52 Sodium Chloride IV 1,075 mls INF JUJU Administration Montelukast Sodium 10 mg 05/28/19 21:00 06/01/19 21:07 Singulair PO 10 mg HS JUJU Administration Prednisone 40 mg 06/02/19 09:00 06/02/19 08:25 Prednisone PO 40 mg DAILY JUJU Administration Rosuvastatin Calcium 20 mg 05/28/19 21:00 06/01/19 21:07 Crestor PO 20 mg HS JUJU Administration Saccharomyces Boulardii 250 mg 05/31/19 09:00 06/02/19 08:25 Florastor PO 250 mg DAILY JUJU Administration Sodium Chloride 10 ml 05/27/19 21:00 06/02/19 08:26 Flush - Normal Saline IVF 10 ml Q12HR JUJU Administration - Exam Eye: PERRL Heart: RRR, no murmur, no gallops, no rubs, normal peripheral pulses, irregular , diminshed peripheral pulses Respiratory: CTAB, no wheezes, no rales, no ronchi, normal chest expansion, no tachypnea Gastrointestinal: soft, non-tender, non-distended, normal bowel sounds, no palpable masses, no hepatomegaly Extremities: no cyanosis, no clubbing, no edema Hosp A/P (1) Acute respiratory failure with hypoxia Code(s): J96.01 - ACUTE RESPIRATORY FAILURE WITH HYPOXIA Status: Acute (2) Pneumonia Code(s): J18.9 - PNEUMONIA, UNSPECIFIED ORGANISM Status: Acute (3) COPD (chronic obstructive pulmonary disease) Status: Chronic (4) Tobacco abuse Code(s): Z72.0 - TOBACCO USE Status: Chronic - Plan * Acute respiratory failure due to pneumonia- continue Zosyn - change to oral antibiotics tomorrow * COPD- clinically stable- continue Duonebs and steroids * Acute kidney injury- beginning to improve * Continue to wean oxygen * Hopefully home tomorrow
--- NOTE | 2019-06-02 16:42 | PRG ---
DATE OF SERVICE: 06/02/2019 SERVICE: Nephrology. SUBJECTIVE: A 74-year-old female seen in followup for acute kidney injury. The patient was admitted due to worsening cough and shortness of breath. Hospital course was complicated by acute increase in creatinine, necessitating Nephrology consult. The patient continued to complain of excessive thirst and dryness of mouth. Denied fever. Shortness of breath and cough have subsided. OBJECTIVE: VITAL SIGNS: Temperature 99.3, pulse 85, respiratory rate 18, SpO2 of 91% on 2 L nasal cannula, and blood pressure is 148/72. GENERAL: Comfortable, elderly female, in no obvious distress. Afebrile. Anicteric. Acyanotic. HEENT: Normocephalic and atraumatic. Oral mucosa is mildly dry. NECK: Supple with no JVD. CARDIOVASCULAR: Regular rhythm and rate. Normal heart sounds 1 and 2. RESPIRATORY: Fair air entry bilaterally with some transmitted breath sounds, but no obvious crackle or rhonchi or use of accessory muscles. GI: Full, soft, nontender, and nondistended with normal bowel sounds. EXTREMITIES: Grossly normal looking atraumatic with no edema or erythema. EARLY CHILDHOOD EDUCATION COORDINATOR: Conscious, alert, and oriented x3 with appropriate mental status. Cranial nerves 2 through 12 are grossly intact. DIAGNOSTIC DATA: BMP today showed sodium 140, potassium 3.7, chloride 109, CO2 of 24, BUN 37, creatinine 1.87, glucose 81, calcium 8.5. Phosphorus 3.7 and albumin 2.7. Urinalysis performed yesterday showed colorless clear urine with pH of 6.0, specific gravity of 1.007, negative ketone, normal glucose, 2+ blood, negative nitrite, bilirubin, and urobilinogen. Leukocyte esterase was elevated at 250. Microscopy showed 7 to 10 rbc and 21 to 50 wbc with 1+ bacteria. Urine electrolytes showed random protein of 16, creatinine of less than 20, and urine sodium of 54. ASSESSMENT: 1. Acute kidney injury: Etiology is unclear, but seems to be multifactorial from hemodynamic factors related to volume depletion and use of NSAID as well as possible contribution from contrast-induced nephropathy. Creatinine is beginning to trend down worse with IV fluid. 2. Volume depletion part of the etiology. 3. Presumed volume depletion. 4. Pneumonia, on treatment. PLAN: 1. Continue IV fluid therapy. 2. [place] oral intake advised. 3. We will check renal function test in the morning. Avoid nephrotoxic agent. Job ID: [id number]
[2019-06-02] MEDS: Rosuvastatin 20 MG TAB PO SCH (20:58)
[2019-06-02] MEDS: Montelukast Sodium 10 mg Tablet PO SCH (20:58)
[2019-06-03] MEDS: Sodium Bicarbonate 75 MEQ in Sodium Chloride 0.45% 1,000 ML IV SCH (00:26)
[2019-06-03] MEDS: Piperacillin/Tazobactam 2.25 GM in Sodium Chloride 0.9% 100 ML IVPB SCH ×4 (00:26→17:25)
[2019-06-03 06:09] LABS: Anion Gap 11 mmol/L (10-20); BUN (Urea Nitrogen) 27 mg/dL (9.8-20.1); Calc. Creatinine Clearance 26 mL/min (70-130); Carbon Dioxide 28 mmol/L (23-31); Chloride 105 mmol/L (98-107); Estimated GFR-MDRD 36; Glucose 84 mg/dL (83-110); Potassium 3.4 mmol/L (3.5-5.1); Sodium 141 mmol/L (136-145)
[2019-06-03] MEDS ORDERED: Potassium Chloride 20 MEQ TAB PO SCH (08:15)
[2019-06-03] MEDS: predniSONE 20 MG TAB PO SCH (08:25)
[2019-06-03] MEDS: Fluticasone Propionate Nasal Spray 16 gm Bottle NASAL SCH ×2 (08:25→19:52)
[2019-06-03] MEDS: Famotidine 20 MG TAB PO SCH (08:25)
[2019-06-03] MEDS: Saccharomyces boulardii 250 MG CAP PO SCH (08:25)
[2019-06-03] MEDS: guaiFENesin/DM ER PO SCH ×2 (08:25→19:51)
[2019-06-03] MEDS: Lactated Ringer's 1,000 ML IV SCH ×2 (08:35→17:27)
--- NOTE | 2019-06-03 13:04 | PRG ---
DATE OF SERVICE: 06/03/2019 SERVICE: Nephrology. SUBJECTIVE: A 74-year-old female seen in followup for acute kidney injury. The patient was admitted due to pneumonia. Found to have acute elevation in creatinine, necessitating Nephrology consult. Also found to have diarrhea, which has improved at this time. Reports feeling better. OBJECTIVE: VITAL SIGNS: Temperature 98.6, pulse 87, respiratory rate 18, SpO2 of 91, blood pressure 153/78. GENERAL: Comfortable female, in no distress. Afebrile. Anicteric. Acyanotic. HEENT: Normocephalic, atraumatic. Oral mucosa is moist. CARDIOVASCULAR: Regular rhythm and rate with normal heart sounds 1 and 2. RESPIRATORY: Fair air entry bilaterally with a few transmitted breath sounds. GI: Full, soft, nontender, nondistended with normal bowel sounds. EXTREMITIES: Grossly normal looking, atraumatic with no edema or erythema. INFORMATION TECHNOLOGY COORDINATOR: Conscious, alert, oriented x3 with appropriate mental status. LABORATORY DATA: BMP showed sodium 141, potassium 3.4, chloride 105, CO2 of 28, BUN 27, creatinine 1.43, glucose 84, calcium 8.0. ASSESSMENT: 1. Acute kidney injury: Due to hemodynamic factors related to NSAID use as well as volume depletion from poor oral intake and gastrointestinal losses. Creatinine is trending downward with IV fluid therapy. 2. Hypokalemia: Due to gastrointestinal losses. 3. Hypertension: Control is fair. 4. Metabolic acidosis: Due to gastrointestinal losses and acute kidney injury. Resolved with bicarb containing infusion. 5. Pneumonia: Treatment as per primary attending. 6. Diarrhea illness: Resolving. PLAN: 1. Replete serum potassium with potassium chloride. 2. Continue IV fluid therapy. 3. Avoid nephrotoxic agents. 4. Repeat renal function in the morning. 5. Further treatment to follow depending on hospital course. Job ID: [id number]
--- NOTE | 2019-06-03 19:40 | PRG ---
DATE OF SERVICE: 06/03/2019 SERVICE: Pulmonary Medicine. INTERVAL HISTORY: The patient is doing really well from respiratory standpoint. Recently, her oxygen was stopped. She has no complaints of chest discomfort, nausea, or vomiting. She is coughing and bringing up a less phlegm. She now feels that it gets caught in her throat. Otherwise, she has no specific complaints. PHYSICAL EXAMINATION: VITAL SIGNS: Afebrile, pulse 77, blood pressure 167/74, respirations 18, and saturation 94% on 2 L nasal cannula. GENERAL: The patient is awake and alert, in no apparent distress. LUNGS: Good air entry bilaterally. No prolonged expiratory phase or wheezing is appreciated. HEART: Normal rate and regular. ABDOMEN: Soft, nontender, and nondistended. Bowel sounds are positive. MUSCULOSKELETAL: No cyanosis or clubbing. There is no pitting in the bilateral lower extremities. That being said, she has 1 to 2+ pitting at the sacrum. : No Milner catheter in place. NEUROLOGIC: Grossly nonfocal. LABORATORY DATA: Potassium 3.4 and creatinine 1.43. Basic metabolic profile is otherwise unremarkable. ASSESSMENT: 1. Acute hypoxic respiratory failure, resolved. 2. Necrotizing community acquired pneumonia on the right, improving. DISCUSSION AND PLAN: The patient is doing great from respiratory standpoint. I will stop her IV antibiotics and put her on p.o. Augmentin. This can be continued for an additional 2 weeks. She will need a repeat chest x-ray in the outpatient setting. IV fluids will be interrupted, and we will give her single dose of Lasix tomorrow morning. Critical Care will follow intermittently during the hospital stay. If she gets into trouble, please call sooner. Job ID: [id number] MTDD
[2019-06-03] MEDS: Rosuvastatin 20 MG TAB PO SCH (19:51)
[2019-06-03] MEDS: Montelukast Sodium 10 mg Tablet PO SCH (19:51)
[2019-06-03] MEDS: Amoxicillin/Potassium Clav 875 MG TAB PO SCH (21:23)
--- NOTE | 2019-06-03 21:36 | PDOC.HOSPP ---
- Subjective Encounter Date: 06/03/19 Encounter Time: 17:00 Subjective: The patient is doing better. Shortness of breath has improved and she is able to walk to the bathroom. She does not use oxygen at home. Can usually climb a flight of stairs at home. Has oxygen at home as needed, was given it last time she had pneumonia. - Objective Vital Signs & Weight: Vital Signs (12 hours) Temp Pulse Resp BP BP Pulse Ox 06/03/19 20:13 98.6 F 92 16 162/72 H 93 L 06/03/19 20:00 93 L 06/03/19 19:36 95 06/03/19 17:03 98.3 F 77 18 167/74 H 94 L 06/03/19 14:34 87 82 L 06/03/19 11:57 98.6 F 87 18 153/78 H 91 L 06/03/19 10:30 95 20 94 L Weight Weight 106 lb 7.732 oz Most Recent Monitor Data Heart Rate from ECG 83 NIBP 135/67 NIBP BP-Mean 89 Respiration from ECG 28 SpO2 92 I&O: 06/02/19 06/03/19 06/04/19 06:59 06:59 06:59 Intake Total 2313 1775 880 Balance 2313 1775 880 Result Diagrams: 05/28/19 03:04 06/03/19 05:08 Hospitalist ROS - Review of Systems Constitutional: denies: fever, chills - Medication Medications: Active Medications Generic Name Dose Route Start Last Admin Trade Name Freq PRN Reason Stop Dose Admin Acetaminophen 650 mg 05/27/19 13:23 06/02/19 08:24 Tylenol PO 650 mg Q4H PRN Administration Headache/Fever/Mild Pain (1-3) Amoxicillin/Clavulanate Potassium 875 mg 06/03/19 21:00 06/03/19 21:23 Augmentin PO 06/17/19 21:01 875 mg BID JUJU Administration Fluticasone Propionate 0 gm 05/28/19 21:00 06/03/19 19:52 Flonase Nasal [place] NASAL 1 spray BID JUJU Administration Guaifenesin/Dextromethorphan 1 tab 05/31/19 09:00 06/03/19 19:51 Mucinex Dm PO 1 tab Q12HR JUJU Administration Montelukast Sodium 10 mg 05/28/19 21:00 06/03/19 19:51 Singulair PO 10 mg HS JUJU Administration Prednisone 40 mg 06/02/19 09:00 06/03/19 08:25 Prednisone PO 40 mg DAILY JUJU Administration Rosuvastatin Calcium 20 mg 05/28/19 21:00 06/03/19 19:51 Crestor PO 20 mg HS JUJU Administration Saccharomyces Boulardii 250 mg 05/31/19 09:00 06/03/19 08:25 Florastor PO 250 mg DAILY JUJU Administration Sodium Chloride 10 ml 05/27/19 21:00 06/03/19 19:52 Flush - Normal Saline IVF Not Given Q12HR JUJU - Exam General Appearance: NAD, awake alert Eye: PERRL, anicteric sclera ENT: normocephalic atraumatic, no oropharyngeal lesions Neck: supple, symmetric, no JVD, no thyromegaly Heart: RRR, no murmur, no gallops, no rubs Respiratory: CTAB, no wheezes, no ronchi Gastrointestinal: soft, non-tender, non-distended, normal bowel sounds Extremities: no cyanosis, no clubbing, no edema Hosp A/P - Plan This is 74 year old female admitted for RUL pneumonia Acute hypoxic respiratory failure secondary to RUL pneumonia - CTA showing RUL pneumonia with central cavitation. AFB smears were negative times three. Blood cultures negative . Flu negative, C diff negative - was on IV zosyn, switched to oral augmentin for additional two weeks - f/u with Dr. Rose in the clinic with repeat chest X ray - attempt to wean off oxygen to maintain sat > 88% - if stable could possibly d/c tomorrow Hypokalemia - potassium 2.4, will recheck tomorow Code status: full code
[2019-06-03] MEDS ORDERED: Enoxaparin Sodium 30 MG/0.3 ML SYRINGE SC SCH (23:15)
[2019-06-04 06:40] LABS: Hemoglobin 12.2 g/dL (12.0-16.0); Mean Corpuscular HGB CONC 30.9 g/dL (32.0-36.0); Mean Corpuscular Hemoglobin 31.3 pg (27.0-31.0); Mean Platelet Volume 8.4 fL (7.4-10.4); Platelet Count 253 thou/uL (130-400); RBC Distribution Width 12.2 % (11.5-14.5); White Blood Cell (WBC) Count 16.7 thou/uL (4.8-10.8)
[2019-06-04 06:51] LABS: Anion Gap 13 mmol/L (10-20); BUN (Urea Nitrogen) 25 mg/dL (9.8-20.1); Calc. Creatinine Clearance 25 mL/min (70-130); Calcium 8.6 mg/dL (7.8-10.44); Carbon Dioxide 25 mmol/L (23-31); Chloride 107 mmol/L (98-107); Estimated GFR-MDRD 34; Glucose 78 mg/dL (83-110); Magnesium 2.1 mg/dL (1.6-2.6); Sodium 141 mmol/L (136-145)
[2019-06-04 06:54] LABS: Band 9 % (5-11); Lymphocytes 8 % (21-51); MDiff Complete? YES; Metamyelocyte 1 % (0-0); Monocytes 2 % (0-10); Neutrophil 80 % (42-75)
[2019-06-04] MEDS: Amoxicillin/Potassium Clav 875 MG TAB PO SCH ×2 (08:26→21:28)
[2019-06-04] MEDS: Fluticasone Propionate Nasal Spray 16 gm Bottle NASAL SCH ×2 (08:27→21:28)
[2019-06-04] MEDS: predniSONE 20 MG TAB PO SCH (08:27)
[2019-06-04] MEDS: Saccharomyces boulardii 250 MG CAP PO SCH (08:27)
[2019-06-04] MEDS: guaiFENesin/DM ER PO SCH ×2 (08:28→21:28)
[2019-06-04] MEDS: Potassium Chloride 20 MEQ TAB PO SCH (08:28)
[2019-06-04] MEDS ORDERED: Furosemide 40 MG/4 ML VIAL SLOW IVP SCH (09:00)
[2019-06-04] MEDS ORDERED: Amlodipine 5 MG TAB PO SCH (09:45)
--- NOTE | 2019-06-04 09:47 | PRG ---
DATE OF SERVICE: 06/04/2019 SERVICE: Nephrology. SUBJECTIVE: A 74-year-old female admitted due to worsening shortness of breath, found to have pneumonia. Nephrology is following the patient for acute kidney injury. The patient feels better. Shortness of breath and cough has subsided. The patient also is off oxygen. Discharge is contemplated. OBJECTIVE: VITAL SIGNS: Temperature 98.1, pulse 87, respiratory rate 18, SpO2 of 92% on room air, blood pressure is 150/77. GENERAL: Comfortable elderly female, in no distress. Afebrile. Anicteric. Acyanotic. HEENT: Normocephalic, atraumatic. NECK: Supple with no JVD. CARDIOVASCULAR: Regular rhythm and rate with normal heart sounds one and two. RESPIRATORY: Fair air entry bilaterally with few transmitted breath sounds. No rhonchi or use of accessory muscles was appreciated. GI: Full, soft, nontender, nondistended with normal bowel sounds. EXTREMITIES: Grossly normal looking, atraumatic with no edema or erythema. ZIPPER TRIMMER HAND: Conscious, alert, oriented x3 with appropriate mental status. Cranial nerves 2 through 12 are grossly intact. DIAGNOSTIC DATA: CBC showed WBC count of 16.7, hemoglobin of 12.2, platelet of 253. BMP showed sodium 141, potassium 4.0, chloride 107, CO2 of 25, creatinine 1.48, BUN 25, glucose 78, calcium 8.6. Magnesium is 2.1. Phosphorus is 3.0. ASSESSMENT: 1. Acute kidney injury: Due to hemodynamic factors related to NSAID use as well as volume depletion. Contrast induced nephropathy is unlikely as creatinine is trending downwards with fluid therapy. 2. Hypokalemia: Repleted. 3. Metabolic acidosis: Resolved. 4. Volume depletion: Improved with IV fluid and liberal oral intake. 5. Pneumonia. 6. Acute respiratory failure with hypoxia, resolved. PLAN: 1. [place] oral intake advised. 2. Avoid NSAIDs and nephrotoxic agents. 3. Start low-dose amlodipine for adequate BP control. 4. Disposition: The patient can be discharged from Nephrology point of view; however, close followup within 10 days with repeat renal function panel is recommended. The patient is to follow up on June 13 at 10 a.m. Job ID: [id number]
--- NOTE | 2019-06-04 10:40 | PDOC.HOSPP ---
- Subjective Encounter Date: 06/04/19 Encounter Time: 10:38 Subjective: The patient has been weaned off oxygen today. SOB has improved. She still has mild cough. She complains of diarrhea after eating food. No abd pain, nausea, vomiting or fevers. She says she received lasix today and is peeing constantly and doesn't want to go home because of this. - Objective Vital Signs & Weight: Vital Signs (12 hours) Temp Pulse Resp BP BP Pulse Ox 06/04/19 08:00 92 L 06/04/19 07:16 98.1 F 87 18 150/77 H 92 L 06/04/19 07:02 91 16 92 L 06/04/19 04:41 98.7 F 74 16 162/79 H 91 L 06/04/19 00:11 98.5 F 76 16 154/75 H 91 L Weight Weight 106 lb 7.732 oz Most Recent Monitor Data Heart Rate from ECG 83 NIBP 135/67 NIBP BP-Mean 89 Respiration from ECG 28 SpO2 92 I&O: 06/03/19 06/04/19 06/05/19 06:59 06:59 06:59 Intake Total 1775 880 240 Balance 1775 880 240 Result Diagrams: 06/04/19 05:41 06/04/19 05:41 Hospitalist ROS - Medication Medications: Active Medications Generic Name Dose Route Start Last Admin Trade Name Freq PRN Reason Stop Dose Admin Acetaminophen 650 mg 05/27/19 13:23 06/02/19 08:24 Tylenol PO 650 mg Q4H PRN Administration Headache/Fever/Mild Pain (1-3) Albuterol/Ipratropium 3 ml 06/04/19 01:00 06/04/19 07:02 Duoneb NEB 3 ml [id number] JUJU Administration Amoxicillin/Clavulanate Potassium 875 mg 06/03/19 21:00 06/04/19 08:26 Augmentin PO 06/17/19 21:01 875 mg BID JUJU Administration Fluticasone Propionate 0 gm 05/28/19 21:00 06/04/19 08:27 Flonase Nasal [place] NASAL 1 spray BID JUJU Administration Guaifenesin/Dextromethorphan 1 tab 05/31/19 09:00 06/04/19 08:28 Mucinex Dm PO 1 tab Q12HR JUJU Administration Montelukast Sodium 10 mg 05/28/19 21:00 06/03/19 19:51 Singulair PO 10 mg HS JUJU Administration Potassium Chloride 20 meq 06/04/19 08:00 06/04/19 08:28 K-Dur PO 06/06/19 08:01 20 meq QAM-WM JUJU Administration Prednisone 40 mg 06/02/19 09:00 06/04/19 08:27 Prednisone PO 40 mg DAILY JUJU Administration Rosuvastatin Calcium 20 mg 05/28/19 21:00 06/03/19 19:51 Crestor PO 20 mg HS JUJU Administration Saccharomyces Boulardii 250 mg 05/31/19 09:00 06/04/19 08:27 Florastor PO 250 mg DAILY JUJU Administration Sodium Chloride 10 ml 05/27/19 21:00 06/04/19 08:28 Flush - Normal Saline IVF 10 ml Q12HR JUJU Administration - Exam General Appearance: NAD, awake alert Eye: PERRL, anicteric sclera ENT: normocephalic atraumatic, no oropharyngeal lesions Neck: supple, no JVD Heart: RRR, no murmur, no gallops, no rubs Respiratory - other findings: mild crackles RML, RLL, LLL Gastrointestinal: soft, non-tender, non-distended Extremities - other findings: some presacral edema Skin: normal turgor, no lesions, no rashes Neurological: cranial nerve grossly intact, normal sensation to touch, no weakness Musculoskeletal: normal tone, normal strength, no muscle wasting Hosp A/P - Plan This is 74 year old female admitted for RUL pneumonia Acute hypoxic respiratory failure secondary to RUL pneumonia - resolved - CTA showing RUL pneumonia with central cavitation. AFB smears were negative times three. Blood cultures negative . Flu negative, C diff negative - was on IV zosyn, switched to oral augmentin for additional two weeks - f/u with Dr. Rose in the clinic with repeat chest X ray - currently on room air Hypokalemia - potassium 2.4, will recheck tomorow Acute Kidney Injury - creatinine went slightly up to 1.48, received IV fluids 06/01 and 06/03 with improvement in creatinine - will hold lasix given patient also has diarrhea - repeat creatinine tomorrow Diarrhea - send stool for ova and parasite - bacterial culture - advised patient to avoid fruit juice to see if that helps Dispo: possibly d/c tomorrow Code status: full code
[2019-06-04] MEDS ORDERED: Enoxaparin Sodium 30 MG/0.3 ML SYRINGE SC SCH (21:00)
[2019-06-04] MEDS: Montelukast Sodium 10 mg Tablet PO SCH (21:28)
[2019-06-04] MEDS: Rosuvastatin 20 MG TAB PO SCH (21:28)
[2019-06-05 06:06] LABS: Hemoglobin 11.6 g/dL (12.0-16.0); Mean Corpuscular HGB CONC 30.6 g/dL (32.0-36.0); Mean Corpuscular Hemoglobin 30.3 pg (27.0-31.0); Mean Corpuscular Volume 98.9 fL (78.0-98.0); Mean Platelet Volume 8.2 fL (7.4-10.4); Platelet Count 262 thou/uL (130-400); RBC Distribution Width 12.1 % (11.5-14.5); Red Blood Cell (RBC) Count 3.84 mill/uL (4.20-5.40); White Blood Cell (WBC) Count 16.2 thou/uL (4.8-10.8)
[2019-06-05 06:19] LABS: Anion Gap 15 mmol/L (10-20); BUN (Urea Nitrogen) 26 mg/dL (9.8-20.1); Calc. Creatinine Clearance 29 mL/min (70-130); Calcium 8.6 mg/dL (7.8-10.44); Carbon Dioxide 23 mmol/L (23-31); Chloride 106 mmol/L (98-107); Estimated GFR-MDRD 39; Glucose 79 mg/dL (83-110); Potassium 3.6 mmol/L (3.5-5.1); Sodium 140 mmol/L (136-145)
--- NOTE | 2019-06-05 08:36 | PRG ---
DATE OF SERVICE: 06/05/2019 SUBJECTIVE: She is doing well and wants to go home. OBJECTIVE: VITAL SIGNS: Temperature 98.5, pulse 89, respirations 16, O2 saturation 92% on room air, blood pressure 145/87. HEENT: Unremarkable. NECK: No adenopathy or JVD. LUNGS: Clear anteriorly. CARDIAC: S1, S2. Regular. ABDOMEN: Soft. EXTREMITIES: No edema. ASSESSMENT: Right upper lobe pneumonia. PLAN: 1. She looks stable for discharge. I will go ahead and cut her steroid dose in half. She should continue prednisone for another 7 days, then probably stop. 2. She needs to follow up in my office in about 3 to 4 weeks for repeat chest x-ray. 3. I would continue the Augmentin through June 16 and then stop that. No further recommendations. Job ID: [id number]
[2019-06-05] MEDS: Potassium Chloride 20 MEQ TAB PO SCH (08:45)
[2019-06-05] MEDS: guaiFENesin/DM ER PO SCH (08:45)
[2019-06-05] MEDS: Saccharomyces boulardii 250 MG CAP PO SCH (08:46)
[2019-06-05] MEDS: Fluticasone Propionate Nasal Spray 16 gm Bottle NASAL SCH (08:47)
[2019-06-05] MEDS: Amoxicillin/Potassium Clav 875 MG TAB PO SCH (08:47)
[2019-06-05] MEDS ORDERED: Amlodipine 5 MG TAB PO SCH (09:00)
[2019-06-05] MEDS ORDERED: predniSONE 20 MG TAB PO SCH (09:00)
[2019-06-05 10:32] VITALS: TEMP 98.1
[2019-06-05 12:50] VITALS: BP 144/76
--- NOTE | 2019-06-06 14:50 | DIS ---
DATE OF ADMISSION: 05/27/2019 DATE OF DISCHARGE: 06/05/2019 DISCHARGE DIAGNOSES: Acute hypoxic respiratory failure secondary to right upper lobe pneumonia, hypokalemia, acute kidney injury, diarrhea, anemia, leukocytosis , and hypertension. CONSULTATIONS: Pulmonology with Dr. Girish Dixon, Nephrology with Dr. Trey Medina. PROCEDURES: NONE BRIEF HISTORY OF PRESENT ILLNESS: This is a 74-year-old female with a past medical history of tobacco abuse, who presented to the emergency department. The patient reported a cough for the past 1 week and then she felt like she broke something on her right side. She then had hemoptysis and proceeded and reported a 20 pounds weight loss over the past few months. The patient reported to the emergency room for further evaluation. Upon presentation to the ER, the patient was noted to have a blood pressure of 148/73, respiratory rate of 28, pulse of 130, and O2 saturation of 92% on room air. EKG showed sinus tachycardia and right bundle-branch block. The patient underwent a chest x-ray, which showed diffuse alveolar opacities throughout the right upper lobe peripherally with diffuse interstitial prominence. A CTA scan of her thorax showed right upper and middle lobe infiltrates with central cavitation suspicious for possible TB. The patient was started on a broad- spectrum antibiotics and admitted for airborne isolation to rule out TB. HOSPITAL COURSE: Acute hypoxic respiratory failure secondary to right upper lobe pneumonia: The patient was initially treated with IV vancomycin and Zosyn. She had AFB smears, which were negative x3. Her blood cultures were negative. The patient tested negative for flu as well. The patient did well and was eventually weaned off oxygen. She was switched to oral Augmentin on discharge for an additional 7 days to complete a 14-day course of antibiotics. The patient will follow up with Dr. Dixon in 3 to 4 weeks for a repeat chest x-ray. The patient was also treated with steroids and was discharged with prednisone 20 mg for another 7 days and then she will be resumed back on her home dose. Diarrhea: The patient had reported multiple episodes of diarrhea after being treated with antibiotics. She tested negative for C diff. Her stool culture did test positive for many Jamila albicans. She was started on fluconazole 100 mg daily for 7 days. She was also told that she can take a probiotic as needed. She can follow up with her PCP for further evaluation. Acute kidney injury: The patient initially presented with a creatinine of 1.32 which increased to 1.95. She was given IV fluids with improvement in her creatinine to 1.32 . The patient will follow up with Dr. Adam Yang from Nephrology in 1 week and have her BMP repeated. Hypertension: The patient was noted to have a high blood pressure in the 140s to 160s in her hospital course. She was started on amlodipine 2.5 mg daily and will follow up with Nephrology and her PCP with regard to additional titration. Hypokalemia: The patient had potassium of 3.4, which resolved with replacement. Leukocytosis/anemia: The patient had a white blood cell count of 16.2 on 06/05 and hemoglobin of 11.6. She had no additional fevers and clinically was doing better. She can have these repeated as an outpatient and followed up with her PCP. DISCHARGE PHYSICAL EXAMINATION: VITAL SIGNS: Temperature 98.1, heart rate 87, respiratory rate 16, O2 saturation 94% on room air, and blood pressure 144/76. GENERAL: The patient is alert, awake, and oriented x3. CVS: Regular rate and rhythm with no murmurs, rubs, or gallops. LUNGS: Clear to auscultation bilaterally. ABDOMEN: Positive bowel sounds, soft, nontender, and nondistended. EXTREMITIES: No edema. PERTINENT LABORATORY DATA: CBC on 06/05: White count 16.2, hemoglobin 11.6, hematocrit 38, and platelet count 262. BMP on 06/05: Shows a creatinine of 1.32, which is down from 1.87 on 06/02. UA on 06/01: Shows 250 leukocyte esterase, 21 to 50 white blood cells, urine creatinine less than 20, urine sodium 54, and urine total protein 16. Serology QuantiFERON gold test for TB on 05/28 :was indeterminate. PERTINENT IMAGING: Chest x-ray on 05/27: Shows diffuse alveolar opacity throughout the right upper lobe peripherally with diffuse interstitial prominence throughout the right lung. CTA thorax on 05/27: Right upper and middle lobe infiltrates with central cavitation. Chest x-ray on 05/28: Stable right upper lobe infiltrate with central cavitation in the right upper lobe. Chest x-ray on 05/30: Stable radiographic appearance of the chest. Chest x-ray on 06/01: Improvement in airspace consolidation in the right upper lobe. Stable COPD change. Mild cardiomegaly. DISCHARGE CONDITION: Stable. ACTIVITY: As tolerated. DIET: Heart healthy diet. DISPOSITION: Home. DISCHARGE MEDICATIONS: New medications: 1. Amlodipine 2.5 mg p.o. daily. 2. Augmentin 875 mg p.o. b.i.d., 13 tablets. 3. Fluconazole 100 mg p.o. daily. 4. Prednisone 20 mg p.o. daily. 5. Florastor 250 mg p.o. daily. Old medications: 1. Singulair 10 mg p.o. at bedtime. 2. Flonase 1 spray inhalation b.i.d. 3. Ventolin 2 puff inhalation p.r.n. 4. Rosuvastatin 20 mg p.o. at bedtime. 5. Florastor 250 mg p.o. daily. DISCHARGE INSTRUCTIONS: The patient should take Augmentin for another 7 days, fluconazole for 7 days, and prednisone for another 7 days. She should follow up with Dr. Dioxn in 3 to 4 weeks for repeat chest x-ray and follow up with Dr. Adam Yang from Nephrology in 1 week. She should also follow up with her PCP to have her blood pressure rechecked. Job ID: [id number] [facility]
--- NOTE | 2019-06-06 19:43 | PQF ---
[employer] Crystal Reports Winform Viewer ALDA SENA TONI MD [id number] [id number] CLINICAL DOCUMENTATION CLARIFICATION FORM: POST DISCHARGE Addendum to original discharge summary date: ____ Late entry note date: __ DATE: 06/06/19 ATTN: Shamar Rubalcava Please exercise your independent, professional judgment in responding to the clarification form. Clinical indicators are provided on the bottom of this form for your review Can you please further clarify if Sepsis is ruled in or ruled out? Sepsis [X ] Ruled in diagnosis [ X ] Continue to treat [ ] Resolved [ ] Ruled out diagnosis [ ] Cannot rule out diagnosis [ ] Other diagnosis [ ] Unable to determine In addition, please specify: Present on Admission (POA): [ X ] Yes [ ] No [ ] Unable to determine For continuity of documentation, please document condition throughout progress notes and discharge summary. Thank You. CLINICAL INDICATORS - SIGNS / SYMPTOMS / LABS ED Provider pg.2- patient afebrile, pulse tachycardia, hypotensive, respiratory rate increased, abnormal pulse oximeter ED Provider pg.4- R upper and middle lobe cavity pneumonia ED Provider pg.4- Sepsis PN 06/03 Dr. Rose pg.1- Necrotizing pneumonia on the right, improving PN 2- Right upper lobe pneumonia Hospitalist PN 05/27- leukocytosis WBC up to 16, no fever Laboratory- WBC 14.2H, 8.1, 16.7H, 16.2H RISK FACTORS COPD- Consult pg.1 hemoptysis- H and P pg.2 hyperlipidemia- H and P pg.1 Tobacco abuse- H and P pg.1 acute on chronic respiratory failure- H and P pg.2 Pneumonia- H and P pg.1 TREATMENTS Pulmonary Consult 05/27 Dr. Dixon Chest X ray 05/27 Chest/Thorax CTA 05/27 IV fluids- MAR IV antibiotics- MAR Solu-Medrol 125mg- MAR DuoNeb- jul (This form is maintained as a part of the permanent medical record) 2014 [employer] All Rights Reserved [email or web address]
--- NOTE | 2019-06-06 19:47 | PQF ---
[employer] Credit Representative Crystal Reports Winform Viewer ALDA SENA TONI MD [id number] [id number] CLINICAL DOCUMENTATION CLARIFICATION FORM: POST DISCHARGE Addendum to original discharge summary date: ____ Late entry note date: __ DATE: 06/06/19 ATTN:Shamar Rubalcava Please exercise your independent, professional judgment in responding to the clarification form. Clinical indicators are provided on the bottom of this form for your review Can you please further clarify the specificity of pneumonia? Please check appropriate box(s): [ ] Lobar Pneumonia [ X] Necrotic/Necrotizing Pneumonia [ ] Pneumonia secondary to (specify organism / underlying disease) [ ] Simple Pneumonia (community acquired - nosocomial) [ ] Pneumonia of unknown etiology [ ] Other diagnosis [ ] Unable to determine In addition, please specify: Present on Admission (POA): [ X] Yes [ ] No [ ] Unable to determine For continuity of documentation, please document condition throughout progress notes and discharge summary. Thank You. CLINICAL INDICATORS - SIGNS / SYMPTOMS / LABS ED Provider pg.4- R upper and middle lobe cavity pneumonia PN 2 Dr. Rose pg.1- Necrotizing pneumonia on the right, improving PN 2- Right upper lobe pneumonia Hospitalist PN 05/27- leukocytosis WBC up to 16, no fever Laboratory- WBC 14.2H, 8.1, 16.7H, 16.2H RISK FACTORS COPD- Consult pg.1 hemoptysis- H and P pg.2 hyperlipidemia- H and P pg.1 Tobacco abuse- H and P pg.1 acute on chronic respiratory failure- H and P pg.2 TREATMENTS: Pulmonary Consult 05/27 Dr. Dixon Chest X ray 05/27 Chest/Thorax CTA 05/27 IV fluids- MAR IV antibiotics- JUL Solu-Medrol 125mg- JUL DuoNeb- JUL Aggressive Pulmonary Toilet (This form is maintained as a part of the permanent medical record) 2014 [employer] All Rights Reserved [email or web address]
== END 2019-06-05 13:30 | disposition home or self-care (01) | DRG 871 ==
LOC: ERS 08:51 → CCU 11:44 → T4-B 05-28 15:37
PROVIDERS: ADMIT Internal Medicine; ATTEND Internal Medicine
PROC: 3E0234Z Introduction of Serum, Toxoid and Vaccine into Muscle, Percutaneous Approach (ICD-10-PCS; principal; 2019-05-28)
PROC: 3E02340 Introduction of Influenza Vaccine into Muscle, Percutaneous Approach (ICD-10-PCS; 2019-05-28)
DX: A41.9 Sepsis, unspecified organism (principal); J96.21 Acute and chronic respiratory failure with hypoxia; J85.0 Gangrene and necrosis of lung; R04.2 Hemoptysis; N17.9 Acute kidney failure, unspecified; E87.2 Acidosis; J43.9 Emphysema, unspecified; E78.5 Hyperlipidemia, unspecified; F17.210 Nicotine dependence, cigarettes, uncomplicated; M19.90 Unspecified osteoarthritis, unspecified site; G89.29 Other chronic pain; R63.4 Abnormal weight loss; I10 Essential (primary) hypertension; D75.89 Other specified diseases of blood and blood-forming organs; E86.9 Volume depletion, unspecified; R19.7 Diarrhea, unspecified; E87.6 Hypokalemia; T39.395A Adverse effect of other nonsteroidal anti-inflammatory drugs [NSAID], initial encounter; Z79.51 Long term (current) use of inhaled steroids; Z79.899 Other long term (current) drug therapy; Z98.51 Tubal ligation status; Z68.21 Body mass index [BMI] 21.0-21.9, adult; Z23 Encounter for immunization
CPT/HCPCS: 36415; 71045; 71275; 80048; 80053; 81001; 82040; 82550; 82570; 82805; 83605; 83630; 83690; 83735; 84100; 84156; 84300; 84484; 85025; 85027; 86480; 87040; 87045; 87046; 87116; 87206; 87324; 87328; 87329; 87427; 87449; 87804; 93005; 94640; 94644; 94660; 94760; 96365; 96366; 96367; 96375; J0456; J1650; J1940; J1956; J2543; J2920; J2930; J3370; J3475; J3490; J7512; J7620; Q9967

== ENCOUNTER 2019-08-05 12:19 | Inpatient (IN) | payer MEDICARE, OTHER ==
[~2019-08-05 12:19] MED LIST changes: -Gadobenate Dimeglumine 529 MG/1 ML (20ML VIAL) ONE; +Iopamidol-370 76% 500 ML 1 ML ONE
[2019-08-05] MEDS ORDERED: Magnesium 2 GM/50 ML BAG (IN WATER) ONE (12:50)
[2019-08-05] MEDS ORDERED: Sodium Chloride 0.9% 100 ML ONE (12:50)
[2019-08-05] MEDS ORDERED: cefTRIAXone\\ROCEPHIN 2 GM VIAL ONE (12:50)
[2019-08-05] MEDS ORDERED: Dexamethasone 10 MG/ML VIAL ONE (12:50)
--- NOTE | 2019-08-05 12:53 | RAD ---
Chest one view HISTORY: Pneumonia. COMPARISON: 06/01/2019. FINDINGS: Cardiac silhouette is magnified by projection. Slight rightward deviation of the mediastinu m due to atelectasis of the right lower lobe. Dense infiltrate throughout the right upper lobe is much less pronounced than on the prior study, now with some component of atelectasis. Left lung is well-inflated. No evidence of pneumothorax. quality assurance monitor leads overlie the chest. IMPRESSION : Right upper lobe infiltrate has improved significantly since the exam 2 months ago. Significant atele ctatic component of the right lung is now evident. Atherosclerosis.
[2019-08-05 13:00] LABS: #Basophils 0.1 thou/uL (0.0-0.2); #Eosinphils 0.8 thou/uL (0.0-0.7); #Lymphocytes 1.7 thou/uL (1.20-3.40); #Monocytes 0.7 thou/uL (0.11-0.59); #Neutrophils 9.7 thou/uL (1.40-6.50); %Basophils 0.9 % (0.0-1.0); %Eosinophils 6.2 % (0.0-10.0); %Lymphocytes 12.9 % (21.0-51.0); %Monocytes 5.3 % (0.0-10.0); %Neutrophils 74.7 % (42.0-75.0); Hemoglobin 12.9 g/dL (12.0-16.0); Mean Corpuscular HGB CONC 31.7 g/dL (32.0-36.0); Mean Corpuscular Hemoglobin 30.3 pg (27.0-31.0); Mean Corpuscular Volume 95.6 fL (78.0-98.0); Mean Platelet Volume 8.4 fL (7.4-10.4); Platelet Count 284 thou/uL (130-400); RBC Distribution Width 12.4 % (11.5-14.5); Red Blood Cell (RBC) Count 4.25 mill/uL (4.20-5.40); White Blood Cell (WBC) Count 12.9 thou/uL (4.8-10.8)
[2019-08-05 13:11] LABS: ALT (SGPT) 9 U/L (8-55); AST (SGOT) 20 U/L (5-34); Albumin 4.6 g/dL (3.4-4.8); Alkaline Phosphatase 80 U/L (40-110); Anion Gap 17 mmol/L (10-20); BUN (Urea Nitrogen) 11 mg/dL (9.8-20.1); Bilirubin, Total 0.5 mg/dL (0.2-1.2); CK (CPK) 29 U/L (29-168); Calc. Creatinine Clearance 0 mL/min (70-130); Calcium 10.6 mg/dL (7.8-10.44); Carbon Dioxide 25 mmol/L (23-31); Chloride 102 mmol/L (98-107); Estimated GFR-MDRD 59; Globulin 3.5 g/dL (2.4-3.5); Glucose 91 mg/dL (83-110); Lipase 10 U/L (8-78); Potassium 3.7 mmol/L (3.5-5.1); Protein, Total 8.1 g/dL (6.0-8.3); Sodium 140 mmol/L (136-145)
[2019-08-05 13:27] LABS: Actual Bicarbonate (HCO3a) 21.5 mEq/L (22-28); Base Excess (BEa) -3.6 mEq/L (-2.0 to +3.0); CO2 Tension 38.6 mmHg (35.0-45.0); Hemoglobin (Hb) 11.2 g/dL (12.0-16.0); O2 Tension (PaO2), arterial 74.9 mmHg (> 70.0); pH, Arterial 7.36 (7.35-7.45)
[2019-08-05 13:28] LABS: Analyzer IN Cardio ER; Carboxyhemoglobin (COHb) 0.3 gm% (0.0-3.0); Potassium - ABG Lab 3.37 mmol/L (3.70-5.30); Puncture Site LRA
[2019-08-05] MEDS ORDERED: Vancomycin 1 GM/200 ML BAG ONE (13:32)
[2019-08-05] MEDS ORDERED: PROVENTIL INHALER 6.7 G (200 INHALATIONS) INH PRN (13:47)
--- NOTE | 2019-08-05 14:14 | CT ---
CT arteriogram chest with IV contrast and 3-D imaging HISTORY: Chest pain. Dyspnea. COMPARISON: 05/27/2019. FINDINGS: There is good contrast opacification of the pulmonary arteries and thoracic aorta with norm al branching of the great vessels at the aortic arch. Prominent calcification throughout the arterial structures. Dense infiltrate throughout the right upp er lobe has decreased in prominence since the prior study, now with some component of atelectasis apparent. Old bilateral posterior lower rib fractures are apparent. No pleural fluid or pneumothorax. Posterior disc herniations with calcification evident at the T11/12 and L1-2 levels of the thoracolum bar spine. IMPRESSION : No CT evidence of pulmonary embolus. Slight interval improvement in right upper lobe infiltrate. Atherosclerosis. Posterior disc herniations at the lower thoracic and upper lumbar spine.
[2019-08-05] MEDS ORDERED: Hydroxychloroquine Sulfate 200 MG TAB PO SCH (14:45)
[2019-08-05 15:48] LABS: Lactic Acid 0.8 mmol/L (0.5-2.2)
[2019-08-05] MEDS ORDERED: Ondansetron ODT 4 MG TAB PO PRN (17:06)
[2019-08-05] MEDS ORDERED: Ondansetron PF 4 MG/2 ML Vial IVP PRN (17:06)
[2019-08-05] MEDS ORDERED: Calcium Carbonate 500 MG ChewTAB PO PRN (17:06)
[2019-08-05] MEDS ORDERED: Acetaminophen 325 MG TAB PO PRN (17:06)
[2019-08-05] MEDS ORDERED: Senokot S 8.6-50 MG TAB PO PRN (17:06)
[2019-08-05 17:10] VITALS: BMI 21.5
[2019-08-05] MEDS ORDERED: Ipratropium Oral Inhaler INH PRN (17:12)
[2019-08-05] MEDS ORDERED: Nitroglycerin 0.4 MG TAB (25 Tab Bottle) PO PRN (17:13)
[2019-08-05] MEDS ORDERED: guaiFENesin/Codeine Phosphate 200 mg/20 mg 10 ml UD Cup PO PRN (17:16)
--- NOTE | 2019-08-05 18:42 | HP ---
PRIMARY CARE PHYSICIAN: Dr. Martin Donovan. CHIEF COMPLAINT: Shortness of breath. HISTORY OF PRESENT ILLNESS: The patient is a 74-year-old female with COPD, presented to the emergency room with above complaints. The patient was admitted at this facility 2 months ago with shortness of breath. A workup was consistent with right upper lobe pneumonia. She was discharged home after her 9-day stay in the hospital. She returned to baseline after few days. Over the last few days, the patient developed gradually worsening shortness of breath along with productive cough. The cough was productive of greenish phlegm. She also had some wheezing. The shortness of breath was getting worse on pemp-ee-ccbzhxdm exertion. She denies any fever or chills. No recent travel reported. No chest pain, palpitations, lightheadedness, dizziness, or syncope reported. The patient was evaluated by Dr. Donovan 2 days ago via tele visit. She was started on Levaquin. Her symptoms continued to get worsen. A prescription for DuoNeb nebulizer was sent earlier today by Dr. Donovan. PAST MEDICAL HISTORY: 1. Chronic obstructive pulmonary disease. 2. Hospitalization for pneumonia earlier this year as discussed above. 3. Hyperlipidemia. PAST SURGICAL HISTORY: 1. Tonsillectomy. 2. Tubal ligation. 3. Cataract surgery. ALLERGIES: NO KNOWN DRUG ALLERGIES. CURRENT HOME MEDICATIONS: 1. Atorvastatin 40 mg daily. 2. Albuterol inhaler as needed. 3. Flonase nasal spray twice a day. 4. Levaquin 500 mg daily, that was started 2 days ago. 5. Cheratussin AC as needed. SOCIAL HISTORY: The patient currently lives at home with her family. She is a former smoker. She is full code and makes her own decision with the help of her family. No alcohol or drug use. FAMILY HISTORY: Positive for Parkinson disease and degenerative joint disease. One sister has malignancy. Another sister had a lung transplant. REVIEW OF SYSTEMS: All other review of systems were reviewed and were found negative. PHYSICAL EXAMINATION: VITAL SIGNS: Temperature 98.1, pulse rate of 105, blood pressure of 151/85, O2 saturation of 92% on 2 L nasal cannula. Her maximum respiration in the emergency room was 34. Room air saturation was 87% to 88% on room air. GENERAL: A 74-year-old female in ldah-ph-pyweilce respiratory distress, able to complete short phrases. HEENT: Head, atraumatic and normocephalic. Sclerae anicteric. NECK: Supple. No JVD. No carotid bruit. LUNGS: Showed expiratory wheezing, which were diffuse along with rhonchi. There were some few rales over the right upper lobe. There was mild accessory muscle use. HEART: S1, S2 present. No rubs or gallops. ABDOMEN: Soft, nontender. Bowel sounds present. EXTREMITIES: No edema or calf tenderness. NEUROLOGY: Grossly nonfocal. Moves all 4 extremities. PSYCHIATRY: Alert, awake, oriented x3. SKIN: Warm and dry. LYMPH NODES: No palpable lymph nodes in the neck. Peripheral vascular radial pulses palpable bilaterally. MUSCULOSKELETAL: No joint swelling tenderness. LABORATORY FINDINGS: 1. CBC showed WBC 12.9 with hemoglobin 12.9, hematocrit 40.6, platelets of 284. 2. D-dimer was 1.47. 3. Lymphocyte was 12.9%. 4. ABG showed pH of 7.36 with pCO2 of 38.6, bicarbonate 21.5, pO2 of 74.9 on room air. 5. Procalcitonin was 0.03. CRP was 1.38. Troponin was negative. 6. Lactic acid was 2.1. 7. Chemistry showed sodium 140, potassium 3.7, chloride 102, bicarb 25, BUN 11, creatinine 0.93. 8. LFTs otherwise in normal range. BNP was 50.6. Influenza screen was negative. IMAGING STUDIES: Chest x-ray by my review showed improvement in the right upper lobe lung infiltrate. CT angiogram of the chest was negative for pulmonary embolism. It showed slight interval improvement in the right upper lobe infiltrate. EKG by my review showed sinus tachycardia with right bundle-branch block. IMPRESSION: 1. Sepsis/acute hypoxic respiratory failure secondary to chronic obstructive pulmonary disease exacerbation. 2. Acute hypoxic respiratory failure secondary to chronic obstructive pulmonary disease exacerbation. 3. Rule out COVID-19. 4. History of right upper lobe pneumonia [address] scan showed improvement. 5. Hyperlipidemia. 6. Former smoker. 7. Chronic kidney disease, stage 3. 8. Right bundle-branch block with sinus tachycardia. PLAN: The patient will be monitored on the telemetry unit. COVID testing has been sent. We will continue COVID isolation. I discussed the case with Dr. Romero, Infectious Disease. We will start her on cefepime along with doxycycline. We will hold oral Levaquin. We will add Mucinex. Continue Crestor. We will add probiotics. Inhalers as needed. Recheck labs in a.m. The patient understands the above plan of care. Job ID: [id number] MTDD
[2019-08-05] MEDS: guaiFENesin ER 600 MG TAB PO SCH (20:48)
[2019-08-05] MEDS: Famotidine 20 MG TAB PO SCH (20:48)
[2019-08-05] MEDS: Rosuvastatin 20 MG TAB PO SCH (20:48)
[2019-08-05] MEDS: Doxycycline 100 MG CAP PO SCH (20:49)
[2019-08-05] MEDS: Cefepime 1 GM in Sodium Chloride 0.9% 100 ML IVPB SCH (20:49)
[2019-08-05] MEDS: Saccharomyces boulardii 250 MG CAP PO SCH (20:49)
[2019-08-06 04:47] LABS: #Lymphocytes 0.9 thou/uL (1.20-3.40); #Monocytes 0.3 thou/uL (0.11-0.59); #Neutrophils 7.2 thou/uL (1.40-6.50); %Basophils 0.4 % (0.0-1.0); %Eosinophils 0.3 % (0.0-10.0); %Lymphocytes 10.4 % (21.0-51.0); %Neutrophils 84.9 % (42.0-75.0); Mean Corpuscular HGB CONC 31.8 g/dL (32.0-36.0); Mean Corpuscular Hemoglobin 30.2 pg (27.0-31.0); Mean Corpuscular Volume 94.7 fL (78.0-98.0); Mean Platelet Volume 8.5 fL (7.4-10.4); Platelet Count 228 thou/uL (130-400); RBC Distribution Width 12.3 % (11.5-14.5); Red Blood Cell (RBC) Count 3.66 mill/uL (4.20-5.40); White Blood Cell (WBC) Count 8.5 thou/uL (4.8-10.8)
[2019-08-06] MEDS: Diabetic Tussin 200 MG/10 ML UDCUP PO PRN ×2 (05:02→22:03)
[2019-08-06 05:11] LABS: ALT (SGPT) 7 U/L (8-55); AST (SGOT) 13 U/L (5-34); Albumin 3.7 g/dL (3.4-4.8); Alkaline Phosphatase 63 U/L (40-110); Anion Gap 12 mmol/L (10-20); BUN (Urea Nitrogen) 13 mg/dL (9.8-20.1); Bilirubin, Total 0.3 mg/dL (0.2-1.2); Calc. Creatinine Clearance 41 mL/min (70-130); Calcium 9.4 mg/dL (7.8-10.44); Carbon Dioxide 23 mmol/L (23-31); Chloride 109 mmol/L (98-107); Estimated GFR-MDRD 63; Globulin 2.7 g/dL (2.4-3.5); Glucose 118 mg/dL (83-110); Magnesium 2.2 mg/dL (1.6-2.6); Potassium 3.9 mmol/L (3.5-5.1); Protein, Total 6.4 g/dL (6.0-8.3); Sodium 140 mmol/L (136-145)
[2019-08-06] MEDS: Cefepime 1 GM in Sodium Chloride 0.9% 100 ML IVPB SCH ×2 (08:45→20:11)
[2019-08-06] MEDS: Doxycycline 100 MG CAP PO SCH ×2 (08:46→20:10)
[2019-08-06] MEDS: Famotidine 20 MG TAB PO SCH ×2 (08:47→20:10)
[2019-08-06] MEDS: guaiFENesin ER 600 MG TAB PO SCH ×2 (08:47→20:10)
[2019-08-06] MEDS: Multivit, Therapeutic 1 TAB PO SCH (08:47)
[2019-08-06] MEDS: Enoxaparin Sodium 40 MG/0.4 ML SYRINGE SC SCH (08:47)
[2019-08-06] MEDS ORDERED: Polyethylene Glycol 3350 17 GM Packet PO PRN (13:14)
--- NOTE | 2019-08-06 14:57 | PDOC.HOSPP ---
- Subjective Encounter Date: 08/06/19 Encounter Time: 13:30 Subjective: Patient seen and examined for Resp failure. SOB on mild exertion. Productive cough. No fever or chills. No new complaints. No overnight events - Objective Vital Signs & Weight: Vital Signs (12 hours) Temp Pulse Resp BP BP Pulse Ox 08/06/19 11:00 98.2 F 90 17 116/59 L 97 08/06/19 08:00 98.2 F 82 18 121/62 100 08/06/19 04:30 96.5 F L 89 19 146/65 H 97 Weight Weight 102 lb 15.294 oz Result Diagrams: 08/06/19 04:29 08/06/19 04:29 Radiology Reviewed by me: Yes (CXR/CT - reviewed) EKG Reviewed by me: Yes (Tele SR) Hospitalist ROS - Review of Systems Cardiovascular: denies: chest pain, palpitations, orthopnea, paroxysmal noc. dyspnea, edema, light headedness, other Gastrointestinal: denies: nausea, vomiting, abdominal pain, diarrhea, constipation, melena, hematochezia, other - Medication Medications: Active Medications Generic Name Dose Route Start Last Admin Trade Name Freq PRN Reason Stop Dose Admin Doxycycline Hyclate 100 mg 08/05/19 21:00 08/06/19 08:46 Vibramycin PO 100 mg BID JUJU Administration Enoxaparin Sodium 40 mg 08/06/19 09:00 08/06/19 08:47 Lovenox SC 40 mg 0900 JUJU Administration Famotidine 20 mg 08/05/19 21:00 08/06/19 08:47 Pepcid PO 20 mg BID JUJU Administration Guaifenesin 600 mg 08/05/19 21:00 08/06/19 08:47 Mucinex PO 600 mg Q12HR JUJU Administration Guaifenesin 200 mg 08/05/19 17:16 08/06/19 05:02 Robitussin Sf PO 200 mg Q4H PRN Administration Cough Cefepime HCl 1 gm/ Sodium 100 mls @ 200 mls/hr 08/05/19 20:00 08/06/19 08:45 Chloride IVPB 100 mls 0800,2000 JUJU Administration Multivitamins 1 tab 08/06/19 09:00 08/06/19 08:47 Theragran PO 1 tab DAILY JUJU Administration Rosuvastatin Calcium 20 mg 08/05/19 21:00 08/05/19 20:48 Crestor PO 20 mg HS JUJU Administration Saccharomyces Boulardii 250 mg 08/05/19 21:00 08/05/19 20:49 Florastor PO 250 mg HS JUJU Administration Senna/Docusate Sodium 2 tab 08/05/19 17:06 08/06/19 05:01 Senokot S PO 2 tab BID PRN Administration Constipation Sodium Chloride 10 ml 08/05/19 17:13 08/06/19 08:44 Flush - Normal Saline IVF 10 ml PRN PRN Administration Saline Flush - Exam General Appearance: NAD Neck: supple, no JVD Heart: RRR, no gallops, no rubs, normal peripheral pulses Respiratory: no rales, no ronchi, normal chest expansion, rhonchi, wheezes Gastrointestinal: soft, non-tender, non-distended, normal bowel sounds Extremities: no cyanosis, no clubbing Psychiatric: normal affect, A&O x 3 Hosp A/P - Plan DVT proph w/SCDs 1. Sepsis 2. Acute hypoxic respiratory failure secondary to COPD exacerbation. 3. Rule out COVID-19. 4. History of right upper lobe pneumonia 2 months ago. 5. Hyperlipidemia. 6. Former smoker. 7. Chronic kidney disease, stage 3. 8. Right bundle-branch block with sinus tachycardia. PLAN: Cont Cefepime/Doxy/Mucinex Cont MDI Await Covid 19 test Cont isolation Cont Crestor Cont O2 supp AM labs
[2019-08-06] MEDS: Saccharomyces boulardii 250 MG CAP PO SCH (20:10)
[2019-08-06] MEDS: Rosuvastatin 20 MG TAB PO SCH (20:11)
[2019-08-07 04:50] LABS: #Basophils 0.1 thou/uL (0.0-0.2); #Eosinphils 0.9 thou/uL (0.0-0.7); #Monocytes 0.8 thou/uL (0.11-0.59); #Neutrophils 7.2 thou/uL (1.40-6.50); %Basophils 1.1 % (0.0-1.0); %Eosinophils 8.5 % (0.0-10.0); %Monocytes 7.1 % (0.0-10.0); %Neutrophils 65.3 % (42.0-75.0); Mean Corpuscular HGB CONC 32.5 g/dL (32.0-36.0); Mean Corpuscular Volume 95.3 fL (78.0-98.0); Mean Platelet Volume 8.6 fL (7.4-10.4); Platelet Count 235 thou/uL (130-400); RBC Distribution Width 12.3 % (11.5-14.5); Red Blood Cell (RBC) Count 3.56 mill/uL (4.20-5.40)
[2019-08-07 05:10] LABS: Anion Gap 10 mmol/L (10-20); BUN (Urea Nitrogen) 17 mg/dL (9.8-20.1); Calc. Creatinine Clearance 43 mL/min (70-130); Calcium 9.5 mg/dL (7.8-10.44); Carbon Dioxide 26 mmol/L (23-31); Chloride 108 mmol/L (98-107); Estimated GFR-MDRD 65; Glucose 85 mg/dL (83-110); Potassium 3.4 mmol/L (3.5-5.1); Sodium 141 mmol/L (136-145)
[2019-08-07] MEDS: Cefepime 1 GM in Sodium Chloride 0.9% 100 ML IVPB SCH ×2 (09:10→20:43)
[2019-08-07] MEDS: Doxycycline 100 MG CAP PO SCH ×2 (09:12→20:43)
[2019-08-07] MEDS: Enoxaparin Sodium 40 MG/0.4 ML SYRINGE SC SCH (09:12)
[2019-08-07] MEDS: guaiFENesin ER 600 MG TAB PO SCH ×2 (09:12→20:43)
[2019-08-07] MEDS: Famotidine 20 MG TAB PO SCH ×2 (09:12→20:43)
[2019-08-07] MEDS: Multivit, Therapeutic 1 TAB PO SCH (09:12)
[2019-08-07] MEDS ORDERED: predniSONE 20 MG TAB PO SCH (11:15)
[2019-08-07] MEDS: predniSONE 20 MG TAB PO SCH (16:59)
[2019-08-07] MEDS: Potassium Chloride 10 MEQ TAB PO SCH (17:00)
--- NOTE | 2019-08-07 19:18 | PDOC.HOSPP ---
- Subjective Encounter Date: 08/07/19 Encounter Time: 11:30 Subjective: Patient seen and examined for Resp failure. Productive cough/SOB +. No other complaints. No overnight events - Objective Vital Signs & Weight: Vital Signs (12 hours) Temp Pulse Resp BP BP Pulse Ox 08/07/19 15:34 98.4 F 91 20 128/60 94 L 08/07/19 13:22 110 H 22 H 08/07/19 12:00 98.1 F 89 20 123/57 L 94 L 08/07/19 09:06 97.8 F 97 18 143/67 H 92 L 08/07/19 09:05 92 L Weight Weight 102 lb 15.294 oz I&O: 08/06/19 08/07/19 08/08/19 06:59 06:59 06:59 Intake Total 1450 Balance 1450 Result Diagrams: 08/07/19 04:32 08/07/19 04:32 EKG Reviewed by me: Yes (Tele SR) Hospitalist ROS - Review of Systems Cardiovascular: denies: chest pain, palpitations, orthopnea, paroxysmal noc. dyspnea, edema, light headedness, other Gastrointestinal: denies: nausea, vomiting, abdominal pain, diarrhea, constipation, melena, hematochezia, other - Medication Medications: Active Medications Generic Name Dose Route Start Last Admin Trade Name Freq PRN Reason Stop Dose Admin Albuterol/Ipratropium 3 ml 08/07/19 14:30 08/07/19 13:22 Duoneb NEB 3 ml [id number] JUJU Administration Doxycycline Hyclate 100 mg 08/05/19 21:00 08/07/19 09:12 Vibramycin PO 100 mg BID JUJU Administration Enoxaparin Sodium 40 mg 08/06/19 09:00 08/07/19 09:12 Lovenox SC 40 mg 0900 JUJU Administration Famotidine 20 mg 08/05/19 21:00 08/07/19 09:12 Pepcid PO 20 mg BID JUJU Administration Guaifenesin 600 mg 08/05/19 21:00 08/07/19 09:12 Mucinex PO 600 mg Q12HR JUJU Administration Guaifenesin 200 mg 08/05/19 17:16 08/06/19 22:03 Robitussin Sf PO 200 mg Q4H PRN Administration Cough Cefepime HCl 1 gm/ Sodium 100 mls @ 200 mls/hr 08/05/19 20:00 08/07/19 09:10 Chloride IVPB 100 mls 08,1999 JUJU Administration Multivitamins 1 tab 08/06/19 09:00 08/07/19 09:12 Theragran PO 1 tab DAILY JUJU Administration Potassium Chloride 20 meq 08/07/19 17:00 08/07/19 17:00 Klor-Con 10 PO 20 meq BID-WM JUJU Administration Prednisone 20 mg 08/07/19 17:00 08/07/19 16:59 Prednisone PO 20 mg BID-WM JUJU Administration Rosuvastatin Calcium 20 mg 08/05/19 21:00 08/06/19 20:11 Crestor PO 20 mg HS JUJU Administration Saccharomyces Boulardii 250 mg 08/05/19 21:00 08/06/19 20:10 Florastor PO 250 mg HS JUJU Administration Senna/Docusate Sodium 2 tab 08/05/19 17:06 08/06/19 05:01 Senokot S PO 2 tab BID PRN Administration Constipation Sodium Chloride 10 ml 08/05/19 17:13 08/06/19 08:44 Flush - Normal Saline IVF 10 ml PRN PRN Administration Saline Flush - Exam General Appearance: NAD Neck: supple, no JVD Heart: RRR, no gallops Respiratory: rales, rhonchi, wheezes Gastrointestinal: soft, non-tender, normal bowel sounds Extremities: no cyanosis Neurological: no new deficit Hosp A/P - Plan DVT proph w/lovenox, DVT proph w/SCDs 1. Sepsis 2. Acute hypoxic respiratory failure secondary to COPD exacerbation. 3. Hyperlipidemia. 4. History of right upper lobe pneumonia 2 months ago. 5. Right bundle-branch block with sinus tachycardia. 6. Former smoker. 7. Chronic kidney disease, stage 3. 8. Hypokalemia PLAN: Cont IV Atbx - Cefepime/Doxy Add Nebs/Steroids Consult Pulmonary COVID-19 ruled out Wean O2 AM labs Replace Potassium
[2019-08-07] MEDS: Rosuvastatin 20 MG TAB PO SCH (20:42)
[2019-08-07] MEDS: Saccharomyces boulardii 250 MG CAP PO SCH (20:43)
[2019-08-08 05:10] LABS: #Lymphocytes 1.1 thou/uL (1.20-3.40); #Monocytes 0.4 thou/uL (0.11-0.59); %Basophils 0.1 % (0.0-1.0); %Eosinophils 0.1 % (0.0-10.0); %Lymphocytes 10.1 % (21.0-51.0); %Monocytes 3.8 % (0.0-10.0); %Neutrophils 85.9 % (42.0-75.0); Hemoglobin 11.4 g/dL (12.0-16.0); Mean Corpuscular HGB CONC 32.6 g/dL (32.0-36.0); Mean Corpuscular Hemoglobin 30.8 pg (27.0-31.0); Mean Corpuscular Volume 94.4 fL (78.0-98.0); Mean Platelet Volume 8.8 fL (7.4-10.4); Platelet Count 227 thou/uL (130-400); RBC Distribution Width 12.1 % (11.5-14.5); White Blood Cell (WBC) Count 10.5 thou/uL (4.8-10.8)
[2019-08-08 05:32] LABS: Anion Gap 13 mmol/L (10-20); BUN (Urea Nitrogen) 22 mg/dL (9.8-20.1); Calc. Creatinine Clearance 50 mL/min (70-130); Calcium 9.9 mg/dL (7.8-10.44); Carbon Dioxide 26 mmol/L (23-31); Chloride 106 mmol/L (98-107); Estimated GFR-MDRD 78; Glucose 129 mg/dL (83-110); Potassium 3.8 mmol/L (3.5-5.1); Sodium 141 mmol/L (136-145)
[2019-08-08] MEDS: Cefepime 1 GM in Sodium Chloride 0.9% 100 ML IVPB SCH (09:26)
[2019-08-08] MEDS: Enoxaparin Sodium 40 MG/0.4 ML SYRINGE SC SCH (09:26)
[2019-08-08] MEDS: guaiFENesin ER 600 MG TAB PO SCH ×2 (09:27→21:47)
[2019-08-08] MEDS: Famotidine 20 MG TAB PO SCH ×2 (09:27→21:47)
[2019-08-08] MEDS: Doxycycline 100 MG CAP PO SCH ×2 (09:27→21:47)
[2019-08-08] MEDS: Multivit, Therapeutic 1 TAB PO SCH (09:27)
[2019-08-08] MEDS: predniSONE 20 MG TAB PO SCH ×2 (09:27→16:10)
[2019-08-08] MEDS: Potassium Chloride 10 MEQ TAB PO SCH ×2 (09:28→16:10)
--- NOTE | 2019-08-08 10:12 | CON ---
DATE OF CONSULTATION: 08/07/2019 HISTORY OF PRESENT ILLNESS: Ms. Sanchez is a 74-year-old with COPD, followed by Dr. Martin Donovan. She presented with shortness of breath. She was here two months ago at the end of May with pneumonia. This involved her right upper lobe. She recovered from that and then presents back with a cough and shortness of breath again. CT pulmonary angiogram was done showing an improved right upper lobe infiltrate. No infiltrates were seen. She is currently being treated for COPD exacerbation. PAST MEDICAL HISTORY: Remarkable for lipid disorder, tonsillectomy, tubal ligation, and cataract surgery. SOCIAL HISTORY: She is a nonsmoker and nondrinker. FAMILY HISTORY: Not obtained. ALLERGIES: SHE HAS NO ALLERGIES. MEDICATIONS: Prior to admission have been reviewed. REVIEW OF SYSTEMS: 10 point review of systems completed, therwise negative. PHYSICAL EXAMINATION: VITAL SIGNS: She is afebrile, in no distress. She says she does great as long as she does not move around. Heart rates in the 80s. Respiratory rate is in the teens, oximetry 94 on 2 L, blood pressure . HEENT: Pupils are equal. Sclerae are anicteric. Extraocular movements are full. Throat is clear. NECK: Supple. No lymphadenopathy. LUNGS: Distant. Remarkable for end-expiratory wheezes, more so on the right. HEART: Regular rhythm. S1 and S2 are normal. ABDOMEN: Soft and nontender. EXTREMITIES: Without clubbing, cyanosis, or edema. NEURO: Nonfocal. LABORATORY DATA: White count 11, hemoglobin 11, and platelets 235. Sodium 141, potassium 3.4, chloride 108, bicarb 26, BUN 17, and creatinine 0.85. IMPRESSION: Chronic obstructive pulmonary disease exacerbation. Her radiograph is improved but has not completely normalized and obviously this will need to be followed as an outpatient until everything is back to normal. Dr. Dixon saw her on last admission. I will notify him of her admission. TIME SPENT: This is a 50-minute consult, with greater than 50% of the time was spent on the unit coordinating care. Job ID: [id number] MTDD
[2019-08-08] MEDS: Diabetic Tussin 200 MG/10 ML UDCUP PO PRN (10:44)
--- NOTE | 2019-08-08 14:44 | PRG ---
DATE OF SERVICE: 08/08/2019 SUBJECTIVE: Teresa Sanchez says she is feeling a little bit better. She still gets a little out of breath if she moves around. OBJECTIVE: VITAL SIGNS: She is afebrile, heart rate is 91, respiratory rate is 18, oximetry is 92%, blood pressure is 117/56. LUNGS: Remarkable for end-expiratory wheezes. HEART: Regular rhythm. ABDOMEN: Soft. LABORATORY DATA: White count 10.5, hemoglobin 11.4, platelets 227. Electrolytes are unremarkable. IMPRESSION: 1. Chronic obstructive pulmonary disease exacerbation. 2. Pneumonia earlier this year with improvement of her radiograph. PLAN: 1. Continue nebulizer treatments and steroids. 2. She can be switched to p.o. antimicrobial therapy since she does not clearly have pneumonia. Doxycycline is reasonable. 3. PO steroids are reasonable. I would start budesonide and anticipate that she will go home with budesonide for nebulizer. She did not have a nebulizer until last Wednesday and nebulized bronchodilators combined with budesonide maybe helpful at keeping her COPD exacerbations to a minimum. Job ID: [id number]
--- NOTE | 2019-08-08 17:45 | PDOC.HOSPP ---
- Subjective Encounter Date: 08/08/19 Encounter Time: 13:30 Subjective: Patient seen and examined for Resp failure. SOB improving. Mild productive cough. No new complaints. No overnight events - Objective Vital Signs & Weight: Vital Signs (12 hours) Temp Pulse Resp BP Pulse Ox 08/08/19 15:27 98.6 F 103 H 16 132/60 91 L 08/08/19 14:59 100 16 08/08/19 11:17 98.9 F 91 18 117/56 L 92 L 08/08/19 10:55 110 H 16 08/08/19 07:59 90 16 08/08/19 07:15 98.7 F 74 16 132/60 94 L Weight Weight 102 lb 15.294 oz I&O: 08/07/19 08/08/19 08/09/19 06:59 06:59 06:59 Intake Total 1450 Balance 1450 Result Diagrams: 08/08/19 04:37 08/08/19 04:37 Hospitalist ROS - Review of Systems Cardiovascular: denies: chest pain, palpitations, orthopnea, paroxysmal noc. dyspnea, edema, light headedness, other Gastrointestinal: denies: nausea, vomiting, abdominal pain, diarrhea, constipation, melena, hematochezia, other - Medication Medications: Active Medications Generic Name Dose Route Start Last Admin Trade Name Freq PRN Reason Stop Dose Admin Albuterol/Ipratropium 3 ml 08/07/19 14:30 08/08/19 14:59 Duoneb NEB 3 ml [id number] JUJU Administration Doxycycline Hyclate 100 mg 08/05/19 21:00 08/08/19 09:27 Vibramycin PO 100 mg BID JUJU Administration Enoxaparin Sodium 40 mg 08/06/19 09:00 08/08/19 09:26 Lovenox SC 40 mg 0900 JUJU Administration Famotidine 20 mg 08/07/19 21:00 08/08/19 09:27 Pepcid PO 20 mg BID JUJU Administration Guaifenesin 600 mg 08/05/19 21:00 08/08/19 09:27 Mucinex PO 600 mg Q12HR JUJU Administration Guaifenesin 200 mg 08/05/19 17:16 08/08/19 10:44 Robitussin Sf PO 200 mg Q4H PRN Administration Cough Guaifenesin/Codeine Phosphate 5 ml 08/05/19 17:16 08/07/19 20:43 Robitussin Ac PO 5 ml Q6H PRN Administration Cough Multivitamins 1 tab 08/06/19 09:00 08/08/19 09:27 Theragran PO 1 tab DAILY JUJU Administration Potassium Chloride 20 meq 08/07/19 17:00 08/08/19 16:10 Klor-Con 10 PO 20 meq BID-WM JUJU Administration Prednisone 20 mg 08/07/19 17:00 08/08/19 16:10 Prednisone PO 20 mg BID-WM JUJU Administration Rosuvastatin Calcium 20 mg 08/05/19 21:00 08/07/19 20:42 Crestor PO 20 mg HS JUJU Administration Saccharomyces Boulardii 250 mg 08/05/19 21:00 08/07/19 20:43 Florastor PO 250 mg HS JUJU Administration Senna/Docusate Sodium 2 tab 08/05/19 17:06 08/06/19 05:01 Senokot S PO 2 tab BID PRN Administration Constipation Sodium Chloride 10 ml 08/05/19 17:13 08/06/19 08:44 Flush - Normal Saline IVF 10 ml PRN PRN Administration Saline Flush - Exam General Appearance: NAD Heart: RRR, no gallops Respiratory: no wheezes, no ronchi Gastrointestinal: non-tender, non-distended, normal bowel sounds Extremities: no cyanosis Neurological: no new deficit Hosp A/P - Plan DVT proph w/SCDs 1. Sepsis 2. Acute hypoxic respiratory failure secondary to COPD exacerbation. 3. Hyperlipidemia. 4. History of right upper lobe pneumonia 2 months ago. 5. Right bundle-branch block with sinus tachycardia. 6. Former smoker. 7. Chronic kidney disease, stage 3. 8. Hypokalemia PLAN: Atbx changed to PO Budesonide added Cont Nebs/Steroids Wean O2 DC planning in 24-48 hr if stable
[2019-08-08] MEDS: Budesonide 0.5 MG/2 ML NEB INH SCH (18:31)
[2019-08-08] MEDS: Rosuvastatin 20 MG TAB PO SCH (21:47)
[2019-08-08] MEDS: Saccharomyces boulardii 250 MG CAP PO SCH (21:47)
[2019-08-09] MEDS: Budesonide 0.5 MG/2 ML NEB INH SCH (08:33)
--- NOTE | 2019-08-09 08:46 | PRG ---
DATE OF SERVICE: 08/09/2019 SUBJECTIVE: Ms. Sanchez feels better today. She wants to go home. OBJECTIVE: VITAL SIGNS: Temperature 98.7, pulse 87, respirations 16, O2 saturation 89% on room air. HEENT: Unremarkable. NECK: No adenopathy or JVD. LUNGS: Fairly clear. CARDIAC: S1 and S2, regular. ABDOMEN: Soft. EXTREMITIES: No edema. ASSESSMENT: The patient's COVID-19 serology was negative. I think this is just a chronic obstructive pulmonary disease with exacerbation. The right upper lobe infiltrate from a pneumonia earlier this year has cleared, but does not back to normal and may not totally normalize. RECOMMENDATION: She is cleared to go home on a course of antibiotics. I would wean her steroids over 7 to 10 days. She needs to follow up in about 3 months with a chest x-ray. Job ID: [id number]
[2019-08-09] MEDS: predniSONE 20 MG TAB PO SCH (08:58)
[2019-08-09] MEDS: Famotidine 20 MG TAB PO SCH (08:58)
[2019-08-09] MEDS: guaiFENesin ER 600 MG TAB PO SCH (08:58)
[2019-08-09] MEDS: Potassium Chloride 10 MEQ TAB PO SCH (08:58)
[2019-08-09] MEDS: Doxycycline 100 MG CAP PO SCH (08:58)
[2019-08-09] MEDS: Enoxaparin Sodium 40 MG/0.4 ML SYRINGE SC SCH (08:58)
[2019-08-09] MEDS: Multivit, Therapeutic 1 TAB PO SCH (08:58)
[2019-08-09 11:45] VITALS: BP 124/59; TEMP 98.4
--- NOTE | 2019-08-09 14:03 | EKG ---
Test Reason : Blood Pressure : / mmHG Vent. Rate : 102 BPM Atrial Rate : 102 BPM P-R Int : 114 ms QRS Dur : 120 ms QT Int : 384 ms P-R-T Axes : 072 -17 047 degrees QTc Int : 500 ms Sinus tachycardia Right bundle branch block Abnormal ECG Confirmed by PEDRO COSTA MD ([id number]), editor at large GILMAR GONZALES ([id number]) on 08/09/2019 2:03:00 PM Referred By: Confirmed By:PEDRO COSTA MD
--- NOTE | 2019-08-10 06:32 | DIS ---
DATE OF ADMISSION: 08/05/2019 DATE OF DISCHARGE: 08/09/2019 DISCHARGE DISPOSITION: Home. FOLLOWUP: 1. Follow up with primary care physician, Dr. Martin Donovan in 1 week. 2. Follow up with Dr. Dixon in 2 to 3 months with repeat chest x-ray. The patient was seen and examined on the day of discharge. Denies any new complaints. No chest pain, shortness of breath, or palpitations reported. PHYSICAL EXAMINATION: VITAL SIGNS: On the day of discharge show temperature 98.7, pulse rate of 80, respirations of 16, blood pressure of 132/61 with O2 saturation 92% on room air. BRIEF HOSPITAL COURSE: The patient is a 74-year-old female with COPD, presented to the emergency room on August 05, 2019, with shortness of breath. Please refer to the history and physical for further details. The patient was admitted to the hospital with a diagnosis of acute hypoxic respiratory failure secondary to COPD exacerbation. Chest x-ray and CT angiogram were negative for new infiltrate. COVID-19 was negative. She was started on nebulizer treatment along with steroids after the COVID-19 results. Symptomatically, she feels much better. She has been cleared by Pulmonary for discharge. She would need a repeat chest x-ray after 3 months. DISCHARGE MEDICATIONS: 1. Doxycycline 100 mg twice a day. 2. Prednisone taper. 3. All other home medications were left unchanged. FINAL DIAGNOSES: 1. Acute hypoxic respiratory failure secondary to chronic obstructive pulmonary disease exacerbation. 2. Systemic inflammatory response syndrome secondary to #1. 3. Hyperlipidemia. 4. History of right upper lobe pneumonia 2 months ago. 5. Right bundle branch block. 6. Sinus tachycardia on admission. 7. Former smoker. 8. Chronic kidney disease, stage 3. 9. Hypokalemia, replaced. 10. The patient understands the above plan of care. Job ID: [id number]
== END 2019-08-09 13:13 | disposition home or self-care (01) | DRG 871 ==
LOC: ERS 12:19 → 2SW 16:14
PROVIDERS: ADMIT Internal Medicine; ATTEND Internal Medicine
PROC: 8E0ZXY6 Isolation (ICD-10-PCS; principal; 2019-08-05)
DX: A41.9 Sepsis, unspecified organism (principal); J96.01 Acute respiratory failure with hypoxia; J44.1 Chronic obstructive pulmonary disease with (acute) exacerbation; E78.5 Hyperlipidemia, unspecified; N18.3 Chronic kidney disease, stage 3 (moderate); I45.10 Unspecified right bundle-branch block; R00.0 Tachycardia, unspecified; E87.6 Hypokalemia; Z98.51 Tubal ligation status; Z87.891 Personal history of nicotine dependence; Z98.42 Cataract extraction status, left eye; Z98.41 Cataract extraction status, right eye; Z87.01 Personal history of pneumonia (recurrent); Z20.828 Contact with and (suspected) exposure to other viral communicable diseases
CPT/HCPCS: 36415; 71045; 71275; 80048; 80053; 82550; 82805; 83605; 83690; 83735; 83880; 84145; 84484; 85025; 85379; 86140; 87040; 87804; 93005; 94640; 94760; 96360; 96365; 96367; 96368; 96375; J0692; J0696; J1100; J1650; J3370; J3475; J3490; J7512; J7620; J7626; Q9967; U0001

== ENCOUNTER 2019-11-23 09:06 | Outpatient (CLI) | payer MEDICARE ==
--- NOTE | 2019-11-23 11:19 | CT ---
EXAM: CT ANGIOGRAM OF THE HEAD INDICATION: Follow-up aneurysm. COMPARISON: 09/16/2018 TECHNIQUE: CT angiogram of the head and neck are performed in the axial plane. Three-dimensional refo rmatted images are submitted for interpretation. FINDINGS: CTA OF THE HEAD WITH AND WITHOUT CONTRAST: NONCONTRAST HEAD CT: No parenchymal hemorrhage No extra-axial hematoma No midline shift Basilar cisterns are patent Brain volume is age-appropriate Cortical gomez-white matter differentiation is preserved No hydrocephalus POSTCONTRAST CT OF BRAIN: Pathologic enhancement: No pathologic enhancement the brain. CTA OF THE BRAIN: Intracranial internal carotid arteries:Appropriate enhancement and luminal diameter. Anterior circulation: Appropriate enhancement and luminal diameter. No aneurysm, occlusion or signifi cant stenosis. Intracranial vertebral arteries: Appropriate enhancement and luminal diameter. 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 On the noncontrast images, this aneurysm measures 0.7 x 0.5 cm. Postcontrast images demonstrate partial enhancement, measuring 0.3 x 0.4 cm. Posterior circulation: Appropriate enhancement and luminal diameter. No evidence of aneurysm, occlusi on or significant stenosis IMPRESSION: 1. 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 The over all size of the aneurysm has decreased on the noncontrast images. There is still evidence of a partial enhancing focus due to aneurysm patency. The degree of enhancement/the nonthrombosed portion of the aneurysm is essentially unchanged.
== END 2019-11-23 09:07 | disposition home or self-care (01) ==
LOC: BICCT 09:06
PROVIDERS: ATTEND Neurological Surgery
DX: I67.1 Cerebral aneurysm, nonruptured (principal)
CPT/HCPCS: 70496; 82565

== ENCOUNTER 2021-04-29 07:44 | Outpatient (CLI) | payer MEDICARE | END 2021-04-29 07:45 | disposition home or self-care (01) | LOC: BICMAMMO 07:44 | PROVIDERS: ATTEND Family Medicine | DX: Z12.31 Encounter for screening mammogram for malignant neoplasm of breast (principal); Z80.3 Family history of malignant neoplasm of breast | CPT/HCPCS: 77063; 77067 ==

== ENCOUNTER 2021-12-16 07:50 | Outpatient (CLI) | payer OTHER ==
[2021-12-16] MEDS ORDERED: Iopamidol-370 76% 500 ML 1 ML ONE (14:28)
== END 2021-12-16 07:51 | disposition home or self-care (01) ==
LOC: BICCT 07:50
PROVIDERS: ATTEND Neurological Surgery
DX: I67.1 Cerebral aneurysm, nonruptured (principal)
CPT/HCPCS: 70496; 82565; Q9967

== ENCOUNTER 2022-03-21 05:24 | Inpatient (IN) | payer OTHER ==
[2022-03-21] MEDS ORDERED: methylPREDNISolone Sod Succ/PF 125 MG/2 ML VIAL ONE (05:37)
[2022-03-21] MEDS ORDERED: Magnesium 2 GM/50 ML BAG (IN WATER) ONE (05:37)
[2022-03-21 06:09] LABS: #Eosinphils 0.1 thou/uL (0.0-0.7); #Lymphocytes 1.1 thou/uL (1.20-3.40); #Monocytes 1.4 thou/uL (0.11-0.59); %Basophils 0.2 % (0.0-1.0); %Eosinophils 0.6 % (0.0-10.0); %Lymphocytes 6.4 % (21.0-51.0); %Monocytes 8.2 % (0.0-10.0); %Neutrophils 84.6 % (42.0-75.0); Hemoglobin 14.4 g/dL (12.0-16.0); Mean Corpuscular HGB CONC 31.2 g/dL (32.0-36.0); Mean Corpuscular Hemoglobin 30.9 pg (27.0-31.0); Mean Corpuscular Volume 99.2 fl (78.0-98.0); Mean Platelet Volume 8.2 fL (7.4-10.4); Platelet Count 268 10x3/uL (130-400); RBC Distribution Width 13.1 % (11.5-14.5); Red Blood Cell (RBC) Count 4.66 mill/uL (4.20-5.40); White Blood Cell (WBC) Count 16.6 10x3/uL (4.8-10.8)
[2022-03-21] MEDS ORDERED: cefTRIAXone\\ROCEPHIN 2 GM VIAL ONE (06:09)
[2022-03-21 06:33] LABS: ALT (SGPT) 32 U/L (8-55); AST (SGOT) 30 U/L (5-34); Albumin 4.3 g/dL (3.4-4.8); Alkaline Phosphatase 86 U/L (40-110); Anion Gap 15 mmol/L (10-20); BUN (Urea Nitrogen) 12 mg/dL (9.8-20.1); Bilirubin, Total 1.4 mg/dL (0.2-1.2); Calc. Creatinine Clearance 0 mL/min (70-130); Calcium 10.1 mg/dL (7.8-10.44); Carbon Dioxide 28 mmol/L (23-31); Chloride 100 mmol/L (98-107); Estimated GFR 82; Glucose 120 mg/dL (83-110); Magnesium 1.7 mg/dL (1.6-2.6); Potassium 4.3 mmol/L (3.5-5.1); Protein, Total 7.3 g/dL (5.8-8.1); Sodium 139 mmol/L (136-145)
[2022-03-21 06:55] LABS: CKMB 2.9 ng/mL (0-6.6)
[2022-03-21] MEDS ORDERED: Ondansetron PF 4 MG/2 ML Vial IVP PRN (07:15)
[2022-03-21] MEDS ORDERED: Acetaminophen 325 MG TAB PO PRN (07:15)
[2022-03-21] MEDS ORDERED: Ondansetron ODT 4 MG TAB SL PRN (07:15)
[2022-03-21] MEDS ORDERED: Albuterol Sulfate 2.5 mg/3 ml Neb NEB PRN (07:17)
[2022-03-21] MEDS ORDERED: Azithromycin 500 MG in Sodium Chloride 0.9% 250 ML 250 ML IVPB SCH (08:00)
[2022-03-21] MEDS ORDERED: Bisacodyl 5 MG TAB PO PRN (08:17)
[2022-03-21] MEDS ORDERED: Azithromycin 500 MG VIAL ONE (08:52)
[2022-03-21 09:26] LABS: Troponin I 0.177 ng/mL (< 0.028)
[2022-03-21 10:31] LABS: SARS-CoV-2 NAA Rapid Test DETECTED (NotDetected)
[2022-03-21] MEDS ORDERED: Enoxaparin Sodium 30 MG/0.3 ML SYRINGE ONE (11:16)
[2022-03-21] MEDS ORDERED: Famotidine 20 MG TAB ONE (11:16)
[2022-03-21] MEDS ORDERED: Nicotine 14 MG PATCH ONE (11:16)
[2022-03-21] MEDS: Enoxaparin Sodium 30 MG/0.3 ML SYRINGE SC SCH (11:26)
[2022-03-21] MEDS: Nicotine 14 MG PATCH TD SCH (11:27)
[2022-03-21] MEDS: Famotidine 20 MG TAB PO SCH ×2 (11:27→20:57)
[2022-03-21 12:24] LABS: Troponin I 0.123 ng/mL (< 0.028)
[2022-03-21] MEDS ORDERED: diphenhydrAMINE 25 MG CAP PO PRN (17:21)
[2022-03-21] MEDS ORDERED: Cholecalciferol (Vitamin D3) 400 UNITS TAB PO SCH (17:45)
[2022-03-21] MEDS ORDERED: Zinc Sulfate 220 MG CAP PO SCH (17:45)
[2022-03-21] MEDS ORDERED: Ascorbic Acid 500 mg Chewable Tablet PO SCH (17:45)
[2022-03-21] MEDS: GUAIFENESIN SF SOLN 200 MG/10 ML UDCUP PO PRN (18:22)
[2022-03-21] MEDS ORDERED: REMDESIVIR 200 MG in Sodium Chloride 0.9% 250 ML 210 ML IV SCH (18:30)
[2022-03-21 19:15] LABS: Actual Bicarbonate (HCO3a) 27.1 mEq/L (22-28); Base Excess (BEa) 2.3 mEq/L (-2.0 to +3.0); CO2 Tension 42.6 mmHg (35.0-45.0); Calcium, Ionized (arterial) 1.19 mmol/L (1.12-1.30); Carboxyhemoglobin (COHb) 0.6 gm% (0.0-3.0); Hemoglobin (Hb) 13.5 g/dL (12.0-16.0); O2 Tension (PaO2), arterial 79.2 mmHg (> 70.0); Potassium - ABG Lab 4.08 mmol/L (3.70-5.30); pH, Arterial 7.42 (7.35-7.45)
[2022-03-21 19:19] LABS: Puncture Site LRA
[2022-03-22 04:16] LABS: #Lymphocytes 0.7 thou/uL (1.20-3.40); #Monocytes 0.8 thou/uL (0.11-0.59); #Neutrophils 11.1 thou/uL (1.40-6.50); %Basophils 0.1 % (0.0-1.0); %Eosinophils 0.1 % (0.0-10.0); %Lymphocytes 5.6 % (21.0-51.0); %Monocytes 6.6 % (0.0-10.0); %Neutrophils 87.5 % (42.0-75.0); Hemoglobin 12.8 g/dL (12.0-16.0); Mean Corpuscular Hemoglobin 31.7 pg (27.0-31.0); Mean Corpuscular Volume 98.9 fl (78.0-98.0); Mean Platelet Volume 8.2 fL (7.4-10.4); Platelet Count 229 10x3/uL (130-400); RBC Distribution Width 12.8 % (11.5-14.5); Red Blood Cell (RBC) Count 4.04 mill/uL (4.20-5.40); White Blood Cell (WBC) Count 12.7 10x3/uL (4.8-10.8)
[2022-03-22 04:35] LABS: Anion Gap 11 mmol/L (10-20); BUN (Urea Nitrogen) 12 mg/dL (9.8-20.1); Calc. Creatinine Clearance 63 mL/min (70-130); Calcium 9.1 mg/dL (7.8-10.44); Carbon Dioxide 26 mmol/L (23-31); Chloride 105 mmol/L (98-107); Estimated GFR 91; Glucose 113 mg/dL (83-110); Sodium 138 mmol/L (136-145)
[2022-03-22 04:41] LABS: ALT (SGPT) 22 U/L (8-55); AST (SGOT) 19 U/L (5-34); Albumin 3.6 g/dL (3.4-4.8); Alkaline Phosphatase 77 U/L (40-110); Bilirubin, Direct 0.2 mg/dL (0.1-0.3); Bilirubin, Total 0.3 mg/dL (0.2-1.2)
[2022-03-22] MEDS: cefTRIAXone\\ROCEPHIN 1 GM in Sodium Chloride 0.9% 100 ML IVPB SCH (06:21)
[2022-03-22] MEDS ORDERED: predniSONE 50 MG TAB PO SCH (08:00)
[2022-03-22] MEDS ORDERED: Dexamethasone 4 mg/ml Vial SLOW IVP SCH (09:00)
[2022-03-22] MEDS: Cholecalciferol (Vitamin D3) 400 UNITS TAB PO SCH (09:36)
[2022-03-22] MEDS: Azithromycin 500 MG in Sodium Chloride 0.9% 250 ML 250 ML IVPB SCH (09:36)
[2022-03-22] MEDS: Ascorbic Acid 500 mg Chewable Tablet PO SCH (09:36)
[2022-03-22] MEDS: Enoxaparin Sodium 30 MG/0.3 ML SYRINGE SC SCH (09:37)
[2022-03-22] MEDS: Famotidine 20 MG TAB PO SCH (09:37)
[2022-03-22] MEDS: Zinc Sulfate 220 MG CAP PO SCH (09:37)
[2022-03-22] MEDS: Nicotine 14 MG PATCH TD SCH (10:00)
[2022-03-22] MEDS ORDERED: Magnesium Sulfate In Water 4 GM in Premix Bag 1 BAG IVPB SCH (11:15)
[2022-03-22] MEDS: methylPREDNISolone Sod Succ 40 MG VIAL IVP SCH ×2 (13:32→17:51)
[2022-03-22] MEDS: Folic Acid 1 MG TAB PO SCH (21:54)
[2022-03-22] MEDS: Cyanocobalamin (Vitamin B-12) 1,000 MCG TAB PO SCH (21:54)
[2022-03-22] MEDS: Multivit, Therapeutic 1 TAB PO SCH (21:54)
[2022-03-22] MEDS: REMDESIVIR 100 MG in Sodium Chloride 0.9% 250 ML 230 ML IV SCH (22:28)
[2022-03-23] MEDS: methylPREDNISolone Sod Succ 40 MG VIAL IVP SCH ×4 (01:23→17:55)
[2022-03-23 04:19] LABS: #Lymphocytes 0.5 thou/uL (1.20-3.40); #Monocytes 0.2 thou/uL (0.11-0.59); #Neutrophils 11.8 thou/uL (1.40-6.50); %Basophils 0.1 % (0.0-1.0); %Lymphocytes 4.3 % (21.0-51.0); %Monocytes 1.5 % (0.0-10.0); %Neutrophils 94.1 % (42.0-75.0); Hemoglobin 12.5 g/dL (12.0-16.0); Mean Corpuscular HGB CONC 31.5 g/dL (32.0-36.0); Mean Corpuscular Hemoglobin 31.1 pg (27.0-31.0); Mean Corpuscular Volume 98.8 fl (78.0-98.0); Mean Platelet Volume 8.5 fL (7.4-10.4); Platelet Count 231 10x3/uL (130-400); RBC Distribution Width 12.8 % (11.5-14.5); Red Blood Cell (RBC) Count 4.01 mill/uL (4.20-5.40); White Blood Cell (WBC) Count 12.6 10x3/uL (4.8-10.8)
[2022-03-23 04:38] LABS: Phosphorus 3.6 mg/dL (2.3-4.7)
[2022-03-23 04:41] LABS: ALT (SGPT) 26 U/L (8-55); AST (SGOT) 19 U/L (5-34); Albumin 3.6 g/dL (3.4-4.8); Alkaline Phosphatase 69 U/L (40-110); Anion Gap 13 mmol/L (10-20); BUN (Urea Nitrogen) 18 mg/dL (9.8-20.1); Bilirubin, Total 0.3 mg/dL (0.2-1.2); Calc. Creatinine Clearance 61 mL/min (70-130); Calcium 9.2 mg/dL (7.8-10.44); Carbon Dioxide 26 mmol/L (23-31); Chloride 103 mmol/L (98-107); Estimated GFR 91; Globulin 2.3 g/dL (2.4-3.5); Glucose 152 mg/dL (83-110); Magnesium 2.6 mg/dL (1.6-2.6); Potassium 4.2 mmol/L (3.5-5.1); Protein, Total 5.9 g/dL (5.8-8.1); Sodium 138 mmol/L (136-145)
[2022-03-23] MEDS: cefTRIAXone\\ROCEPHIN 1 GM in Sodium Chloride 0.9% 100 ML IVPB SCH (05:56)
[2022-03-23] MEDS: Ascorbic Acid 500 mg Chewable Tablet PO SCH (09:55)
[2022-03-23] MEDS: Cholecalciferol (Vitamin D3) 400 UNITS TAB PO SCH (09:56)
[2022-03-23] MEDS: Enoxaparin Sodium 30 MG/0.3 ML SYRINGE SC SCH (09:56)
[2022-03-23] MEDS: Azithromycin 500 MG in Sodium Chloride 0.9% 250 ML 250 ML IVPB SCH (09:56)
[2022-03-23] MEDS: Zinc Sulfate 220 MG CAP PO SCH (09:57)
[2022-03-23] MEDS: Mometasone 200 MCG/Formoterol 5 MCG 120 PUFF INHALER INH SCH ×2 (11:04→18:48)
[2022-03-23] MEDS ORDERED: Ondansetron ODT 4 MG TAB PO PRN (11:25)
[2022-03-23] MEDS: Nicotine 14 MG PATCH TD PRN (17:56)
[2022-03-23] MEDS: REMDESIVIR 100 MG in Sodium Chloride 0.9% 250 ML 230 ML IV SCH (18:58)
[2022-03-23] MEDS: Lidocaine 5% Patch TD SCH (20:50)
[2022-03-23] MEDS: GUAIFENESIN SF SOLN 200 MG/10 ML UDCUP PO PRN (20:50)
[2022-03-23] MEDS: Folic Acid 1 MG TAB PO SCH (20:50)
[2022-03-23] MEDS: Multivit, Therapeutic 1 TAB PO SCH (20:50)
[2022-03-23] MEDS: Cyanocobalamin (Vitamin B-12) 1,000 MCG TAB PO SCH (20:50)
[2022-03-24] MEDS: methylPREDNISolone Sod Succ 40 MG VIAL IVP SCH ×4 (00:50→18:05)
[2022-03-24] MEDS: cefTRIAXone\\ROCEPHIN 1 GM in Sodium Chloride 0.9% 100 ML IVPB SCH (05:56)
[2022-03-24] MEDS: Mometasone 200 MCG/Formoterol 5 MCG 120 PUFF INHALER INH SCH ×2 (06:15→18:52)
[2022-03-24 06:42] LABS: #Lymphocytes 0.6 thou/uL (1.20-3.40); #Monocytes 0.3 thou/uL (0.11-0.59); #Neutrophils 14.1 thou/uL (1.40-6.50); %Eosinophils 0.1 % (0.0-10.0); %Lymphocytes 3.9 % (21.0-51.0); %Monocytes 2.2 % (0.0-10.0); %Neutrophils 93.8 % (42.0-75.0); Hemoglobin 13.8 g/dL (12.0-16.0); Mean Corpuscular HGB CONC 31.3 g/dL (32.0-36.0); Mean Corpuscular Hemoglobin 31.2 pg (27.0-31.0); Mean Corpuscular Volume 99.8 fl (78.0-98.0); Mean Platelet Volume 8.6 fL (7.4-10.4); Platelet Count 255 10x3/uL (130-400); RBC Distribution Width 12.7 % (11.5-14.5); Red Blood Cell (RBC) Count 4.41 mill/uL (4.20-5.40)
[2022-03-24 06:56] LABS: Anion Gap 12 mmol/L (10-20); BUN (Urea Nitrogen) 18 mg/dL (9.8-20.1); Calc. Creatinine Clearance 63 mL/min (70-130); Calcium 9.4 mg/dL (7.8-10.44); Carbon Dioxide 29 mmol/L (23-31); Chloride 102 mmol/L (98-107); Estimated GFR 92; Glucose 150 mg/dL (83-110); Potassium 3.9 mmol/L (3.5-5.1); Sodium 139 mmol/L (136-145)
[2022-03-24] MEDS: Transdermal Patch Removal TOP SCH (10:10)
[2022-03-24] MEDS: Cholecalciferol (Vitamin D3) 400 UNITS TAB PO SCH (10:19)
[2022-03-24] MEDS: Ascorbic Acid 500 mg Chewable Tablet PO SCH (10:20)
[2022-03-24] MEDS: Zinc Sulfate 220 MG CAP PO SCH (10:20)
[2022-03-24] MEDS: Enoxaparin Sodium 30 MG/0.3 ML SYRINGE SC SCH (10:20)
[2022-03-24] MEDS ORDERED: Cyclobenzaprine 10 MG TAB PO SCH (11:15)
[2022-03-24] MEDS: HYDROcodone/Chlorphen Polis 5 ML UDCUP PO PRN (12:02)
[2022-03-24] MEDS: REMDESIVIR 100 MG in Sodium Chloride 0.9% 250 ML 230 ML IV SCH (18:05)
[2022-03-24] MEDS: Lidocaine 5% Patch TD SCH (18:05)
[2022-03-24] MEDS: Nicotine 14 MG PATCH TD PRN (21:11)
[2022-03-24] MEDS: Cyanocobalamin (Vitamin B-12) 1,000 MCG TAB PO SCH (21:11)
[2022-03-24] MEDS: Folic Acid 1 MG TAB PO SCH (21:11)
[2022-03-24] MEDS: Multivit, Therapeutic 1 TAB PO SCH (21:11)
[2022-03-25] MEDS: methylPREDNISolone Sod Succ 40 MG VIAL IVP SCH ×4 (00:47→17:08)
[2022-03-25] MEDS: HYDROcodone/Chlorphen Polis 5 ML UDCUP PO PRN ×2 (00:47→17:09)
[2022-03-25 04:02] LABS: #Lymphocytes 0.4 thou/uL (1.20-3.40); #Monocytes 0.6 thou/uL (0.11-0.59); #Neutrophils 14.2 thou/uL (1.40-6.50); %Eosinophils 0.1 % (0.0-10.0); %Lymphocytes 2.7 % (21.0-51.0); %Monocytes 3.8 % (0.0-10.0); %Neutrophils 93.5 % (42.0-75.0); Hemoglobin 12.4 g/dL (12.0-16.0); Mean Corpuscular Hemoglobin 30.5 pg (27.0-31.0); Mean Corpuscular Volume 98.3 fl (78.0-98.0); Mean Platelet Volume 8.8 fL (7.4-10.4); Platelet Count 237 10x3/uL (130-400); RBC Distribution Width 12.5 % (11.5-14.5); Red Blood Cell (RBC) Count 4.08 mill/uL (4.20-5.40); White Blood Cell (WBC) Count 15.2 10x3/uL (4.8-10.8)
[2022-03-25 04:27] LABS: Anion Gap 13 mmol/L (10-20); BUN (Urea Nitrogen) 26 mg/dL (9.8-20.1); Calc. Creatinine Clearance 51 mL/min (70-130); Carbon Dioxide 26 mmol/L (23-31); Chloride 103 mmol/L (98-107); Estimated GFR 79; Glucose 170 mg/dL (83-110); Sodium 138 mmol/L (136-145)
[2022-03-25] MEDS: cefTRIAXone\\ROCEPHIN 1 GM in Sodium Chloride 0.9% 100 ML IVPB SCH (05:27)
[2022-03-25] MEDS: Transdermal Patch Removal TOP SCH (05:28)
[2022-03-25] MEDS: Mometasone 200 MCG/Formoterol 5 MCG 120 PUFF INHALER INH SCH ×2 (07:56→18:25)
[2022-03-25] MEDS: Cholecalciferol (Vitamin D3) 400 UNITS TAB PO SCH (08:04)
[2022-03-25] MEDS: Enoxaparin Sodium 30 MG/0.3 ML SYRINGE SC SCH (08:05)
[2022-03-25] MEDS: Zinc Sulfate 220 MG CAP PO SCH (08:05)
[2022-03-25] MEDS: Ascorbic Acid 500 mg Chewable Tablet PO SCH (08:05)
[2022-03-25] MEDS: Lidocaine 5% Patch TD SCH (17:08)
[2022-03-25] MEDS: REMDESIVIR 100 MG in Sodium Chloride 0.9% 250 ML 230 ML IV SCH (17:08)
[2022-03-25] MEDS: Cyanocobalamin (Vitamin B-12) 1,000 MCG TAB PO SCH (21:14)
[2022-03-25] MEDS: Multivit, Therapeutic 1 TAB PO SCH (21:14)
[2022-03-25] MEDS: Folic Acid 1 MG TAB PO SCH (21:14)
[2022-03-26] MEDS: methylPREDNISolone Sod Succ 40 MG VIAL IVP SCH ×5 (00:12→23:54)
[2022-03-26] MEDS: Nicotine 14 MG PATCH TD PRN ×2 (00:12→23:53)
[2022-03-26] MEDS: Transdermal Patch Removal TOP SCH (05:43)
[2022-03-26] MEDS: Mometasone 200 MCG/Formoterol 5 MCG 120 PUFF INHALER INH SCH ×2 (08:04→18:22)
[2022-03-26] MEDS: Zinc Sulfate 220 MG CAP PO SCH (09:44)
[2022-03-26] MEDS: Cholecalciferol (Vitamin D3) 400 UNITS TAB PO SCH (09:44)
[2022-03-26] MEDS: Enoxaparin Sodium 40 MG/0.4 ML SYRINGE SC SCH (09:45)
[2022-03-26] MEDS: Ascorbic Acid 500 mg Chewable Tablet PO SCH (09:45)
[2022-03-26] MEDS: cefTRIAXone\\ROCEPHIN 1 GM in Sodium Chloride 0.9% 100 ML IVPB SCH (09:45)
[2022-03-26] MEDS: Lidocaine 5% Patch TD SCH (17:28)
[2022-03-26] MEDS: Folic Acid 1 MG TAB PO SCH (20:39)
[2022-03-26] MEDS: Multivit, Therapeutic 1 TAB PO SCH (20:39)
[2022-03-26] MEDS: Cyanocobalamin (Vitamin B-12) 1,000 MCG TAB PO SCH (20:39)
[2022-03-26] MEDS: HYDROcodone/Chlorphen Polis 5 ML UDCUP PO PRN (21:13)
[2022-03-27 04:12] LABS: Anion Gap 13 mmol/L (10-20); BUN (Urea Nitrogen) 26 mg/dL (9.8-20.1); Calc. Creatinine Clearance 59 mL/min (70-130); Calcium 8.7 mg/dL (7.8-10.44); Carbon Dioxide 26 mmol/L (23-31); Chloride 101 mmol/L (98-107); Estimated GFR 90; Glucose 167 mg/dL (83-110); Magnesium 2.2 mg/dL (1.6-2.6); Potassium 4.3 mmol/L (3.5-5.1); Sodium 136 mmol/L (136-145)
[2022-03-27 04:39] LABS: Band 7 % (5-11); Hemoglobin 12.6 g/dL (12.0-16.0); Hypochromia SLIGHT = 6-15 cells (100X) (0-5/hpf); Large Platelets SLIGHT; Lymphocytes 3 % (21-51); MDiff Complete? YES; Macrocytosis SLIGHT = 6-15 cells (100X) (0-5/hpf); Mean Corpuscular Hemoglobin 31.1 pg (27.0-31.0); Mean Platelet Volume 9.2 fL (7.4-10.4); Monocytes 3 % (0-10); Neutrophil 87 % (42-75); Ovalocytes SLIGHT = 2-5 cells (100X) (0-1/hpf); Platelet Count 217 10x3/uL (130-400); Platelet Morphology Comment Appears Adequate; Polychromasia SLIGHT = 2-3 cells (100X) (0-2/hpf); RBC Distribution Width 12.9 % (11.5-14.5); Red Blood Cell (RBC) Count 4.04 mill/uL (4.20-5.40)
[2022-03-27] MEDS: methylPREDNISolone Sod Succ 40 MG VIAL IVP SCH ×3 (05:02→16:55)
[2022-03-27] MEDS: Transdermal Patch Removal TOP SCH (06:33)
[2022-03-27] MEDS: Mometasone 200 MCG/Formoterol 5 MCG 120 PUFF INHALER INH SCH ×2 (08:07→19:18)
[2022-03-27] MEDS: Ascorbic Acid 500 mg Chewable Tablet PO SCH (09:00)
[2022-03-27] MEDS: Zinc Sulfate 220 MG CAP PO SCH (09:00)
[2022-03-27] MEDS: Cholecalciferol (Vitamin D3) 400 UNITS TAB PO SCH (09:00)
[2022-03-27] MEDS: cefTRIAXone\\ROCEPHIN 1 GM in Sodium Chloride 0.9% 100 ML IVPB SCH (09:01)
[2022-03-27] MEDS: Enoxaparin Sodium 40 MG/0.4 ML SYRINGE SC SCH (09:01)
[2022-03-27] MEDS: GUAIFENESIN SF SOLN 200 MG/10 ML UDCUP PO PRN (12:54)
[2022-03-27] MEDS: Lidocaine 5% Patch TD SCH (16:56)
[2022-03-27] MEDS: Cyanocobalamin (Vitamin B-12) 1,000 MCG TAB PO SCH (21:01)
[2022-03-27] MEDS: Folic Acid 1 MG TAB PO SCH (21:01)
[2022-03-27] MEDS: HYDROcodone/Chlorphen Polis 5 ML UDCUP PO PRN (21:02)
[2022-03-27] MEDS: Multivit, Therapeutic 1 TAB PO SCH (21:02)
[2022-03-28] MEDS: methylPREDNISolone Sod Succ 40 MG VIAL IVP SCH ×4 (00:02→21:27)
[2022-03-28] MEDS: Nicotine 14 MG PATCH TD PRN (00:02)
[2022-03-28 04:08] LABS: Anion Gap 12 mmol/L (10-20); BUN (Urea Nitrogen) 24 mg/dL (9.8-20.1); Calc. Creatinine Clearance 63 mL/min (70-130); Calcium 9.1 mg/dL (7.8-10.44); Carbon Dioxide 28 mmol/L (23-31); Chloride 99 mmol/L (98-107); Estimated GFR 91; Glucose 170 mg/dL (83-110); Potassium 4.4 mmol/L (3.5-5.1); Sodium 135 mmol/L (136-145)
[2022-03-28 04:43] LABS: Band 7 % (5-11); Hemoglobin 13.4 g/dL (12.0-16.0); Lymphocytes 11 % (21-51); MDiff Complete? YES; Mean Corpuscular Hemoglobin 32.6 pg (27.0-31.0); Mean Corpuscular Volume 99.1 fl (78.0-98.0); Mean Platelet Volume 9.3 fL (7.4-10.4); Monocytes 4 % (0-10); Neutrophil 78 % (42-75); Platelet Count 195 10x3/uL (130-400); Platelet Morphology Comment Appears Adequate; RBC Distribution Width 12.6 % (11.5-14.5); RBC Morphology Normal; White Blood Cell (WBC) Count 15.5 10x3/uL (4.8-10.8)
[2022-03-28] MEDS: Transdermal Patch Removal TOP SCH (06:00)
[2022-03-28] MEDS: Mometasone 200 MCG/Formoterol 5 MCG 120 PUFF INHALER INH SCH ×2 (07:50→18:58)
[2022-03-28] MEDS: Ascorbic Acid 500 mg Chewable Tablet PO SCH (09:26)
[2022-03-28] MEDS: Zinc Sulfate 220 MG CAP PO SCH (09:26)
[2022-03-28] MEDS: Enoxaparin Sodium 40 MG/0.4 ML SYRINGE SC SCH (09:26)
[2022-03-28] MEDS: Cholecalciferol (Vitamin D3) 400 UNITS TAB PO SCH (09:26)
[2022-03-28] MEDS: GUAIFENESIN SF SOLN 200 MG/10 ML UDCUP PO PRN ×2 (13:40→21:27)
[2022-03-28] MEDS: Lidocaine 5% Patch TD SCH (16:57)
[2022-03-28] MEDS: Multivit, Therapeutic 1 TAB PO SCH (21:26)
[2022-03-28] MEDS: Cyanocobalamin (Vitamin B-12) 1,000 MCG TAB PO SCH (21:26)
[2022-03-28] MEDS: Folic Acid 1 MG TAB PO SCH (21:27)
[2022-03-29] MEDS: Nicotine 14 MG PATCH TD PRN (00:35)
[2022-03-29] MEDS: HYDROcodone/Chlorphen Polis 5 ML UDCUP PO PRN ×2 (00:35→21:13)
[2022-03-29] MEDS: Transdermal Patch Removal TOP SCH (06:04)
[2022-03-29] MEDS: Mometasone 200 MCG/Formoterol 5 MCG 120 PUFF INHALER INH SCH ×2 (07:43→18:15)
[2022-03-29] MEDS: Enoxaparin Sodium 40 MG/0.4 ML SYRINGE SC SCH (07:56)
[2022-03-29] MEDS: Cholecalciferol (Vitamin D3) 400 UNITS TAB PO SCH (07:57)
[2022-03-29] MEDS: Ascorbic Acid 500 mg Chewable Tablet PO SCH (07:57)
[2022-03-29] MEDS: Zinc Sulfate 220 MG CAP PO SCH (07:58)
[2022-03-29] MEDS: methylPREDNISolone Sod Succ 40 MG VIAL IVP SCH ×2 (07:58→20:33)
[2022-03-29 08:24] LABS: Anion Gap 13 mmol/L (10-20); BUN (Urea Nitrogen) 20 mg/dL (9.8-20.1); Calc. Creatinine Clearance 60 mL/min (70-130); Calcium 9.1 mg/dL (7.8-10.44); Carbon Dioxide 29 mmol/L (23-31); Chloride 99 mmol/L (98-107); Estimated GFR 91; Glucose 130 mg/dL (83-110); Potassium 4.5 mmol/L (3.5-5.1); Sodium 136 mmol/L (136-145)
[2022-03-29 10:22] LABS: Hemoglobin 12.7 g/dL (12.0-16.0); Mean Corpuscular HGB CONC 29.7 g/dL (32.0-36.0); Mean Corpuscular Hemoglobin 29.6 pg (27.0-31.0); Mean Corpuscular Volume 99.8 fl (78.0-98.0); Mean Platelet Volume 9.5 fL (7.4-10.4); Platelet Count 218 10x3/uL (130-400); RBC Distribution Width 12.8 % (11.5-14.5); Red Blood Cell (RBC) Count 4.29 mill/uL (4.20-5.40)
[2022-03-29 11:14] LABS: Band 2 % (5-11); Lymphocytes 5 % (21-51); MDiff Complete? YES; Metamyelocyte 1 % (0-0); Monocytes 3 % (0-10); Neutrophil 89 % (42-75); Platelet Morphology Comment Appears Adequate; RBC Morphology Normal
[2022-03-29] MEDS: Lidocaine 5% Patch TD SCH (18:12)
[2022-03-29] MEDS: Cyanocobalamin (Vitamin B-12) 1,000 MCG TAB PO SCH (20:33)
[2022-03-29] MEDS: Multivit, Therapeutic 1 TAB PO SCH (20:33)
[2022-03-29] MEDS: Folic Acid 1 MG TAB PO SCH (20:33)
[2022-03-30] MEDS: Transdermal Patch Removal TOP SCH (06:15)
[2022-03-30] MEDS: Mometasone 200 MCG/Formoterol 5 MCG 120 PUFF INHALER INH SCH ×2 (07:15→18:45)
[2022-03-30] MEDS: Cholecalciferol (Vitamin D3) 400 UNITS TAB PO SCH (09:09)
[2022-03-30] MEDS: Zinc Sulfate 220 MG CAP PO SCH (09:09)
[2022-03-30] MEDS: Enoxaparin Sodium 40 MG/0.4 ML SYRINGE SC SCH (09:09)
[2022-03-30] MEDS: Ascorbic Acid 500 mg Chewable Tablet PO SCH (09:09)
[2022-03-30] MEDS: methylPREDNISolone Sod Succ 40 MG VIAL IVP SCH ×2 (09:14→20:39)
[2022-03-30] MEDS: Senokot S 8.6-50 MG TAB PO PRN (16:42)
[2022-03-30] MEDS: Lidocaine 5% Patch TD SCH (18:37)
[2022-03-30] MEDS: Folic Acid 1 MG TAB PO SCH (20:39)
[2022-03-30] MEDS: Multivit, Therapeutic 1 TAB PO SCH (20:39)
[2022-03-30] MEDS: Cyanocobalamin (Vitamin B-12) 1,000 MCG TAB PO SCH (20:39)
[2022-03-30] MEDS: HYDROcodone/Chlorphen Polis 5 ML UDCUP PO PRN (21:25)
[2022-03-31] MEDS: Transdermal Patch Removal TOP SCH (06:33)
[2022-03-31] MEDS: Mometasone 200 MCG/Formoterol 5 MCG 120 PUFF INHALER INH SCH (07:05)
[2022-03-31 07:23] LABS: Hemoglobin 13.3 g/dL (12.0-16.0); Mean Corpuscular HGB CONC 31.9 g/dL (32.0-36.0); Mean Corpuscular Hemoglobin 31.7 pg (27.0-31.0); Mean Corpuscular Volume 99.6 fl (78.0-98.0); Platelet Count 219 10x3/uL (130-400); RBC Distribution Width 12.8 % (11.5-14.5); White Blood Cell (WBC) Count 19.8 10x3/uL (4.8-10.8)
[2022-03-31] MEDS: Ascorbic Acid 500 mg Chewable Tablet PO SCH (09:00)
[2022-03-31] MEDS: methylPREDNISolone Sod Succ 40 MG VIAL IVP SCH (09:00)
[2022-03-31] MEDS: Enoxaparin Sodium 40 MG/0.4 ML SYRINGE SC SCH (09:00)
[2022-03-31] MEDS: Zinc Sulfate 220 MG CAP PO SCH (09:00)
[2022-03-31] MEDS: Cholecalciferol (Vitamin D3) 400 UNITS TAB PO SCH (09:00)
[2022-03-31] MEDS: Senokot S 8.6-50 MG TAB PO PRN (09:12)
[2022-03-31 09:41] LABS: Band 8 % (5-11); Lymphocytes 9 % (21-51); MDiff Complete? YES; Neutrophil 82 % (42-75); RBC Morphology Normal; Reactive Lymphocytes 1 % (0-10)
[2022-03-31] MEDS ORDERED: Milk Of Magnesia 30 ML UDCUP PO SCH (15:00)
[2022-03-31] MEDS: Lidocaine 5% Patch TD SCH (18:40)
[2022-03-31] MEDS: Mometasone Furoate 120 PUFF 220 MCG INH SCH (18:58)
[2022-03-31] MEDS: Acetylcysteine 10% 100 MG/ML 30 ml Vial PO SCH (19:10)
[2022-03-31] MEDS: Multivit, Therapeutic 1 TAB PO SCH (20:28)
[2022-03-31] MEDS: Cyanocobalamin (Vitamin B-12) 1,000 MCG TAB PO SCH (20:28)
[2022-03-31] MEDS: Folic Acid 1 MG TAB PO SCH (20:29)
[2022-03-31] MEDS ORDERED: Acetylcysteine 10% 100 MG/ML 30 ml Vial PO SCH (21:00)
[2022-03-31] MEDS: GUAIFENESIN SF SOLN 200 MG/10 ML UDCUP PO PRN (21:40)
[2022-04-01] MEDS ORDERED: Milk Of Magnesia 30 ML UDCUP PO SCH (01:15)
[2022-04-01] MEDS ORDERED: Ketorolac Tromethamine 30 MG/ML VIAL IVP SCH (01:15)
[2022-04-01] MEDS ORDERED: Fleet Enema 133 ML BOT PR SCH ×2 (05:00→11:30)
[2022-04-01] MEDS: Transdermal Patch Removal TOP SCH (05:48)
[2022-04-01] MEDS ORDERED: Acetaminophen 325 MG TAB PO PRN (05:54)
[2022-04-01] MEDS ORDERED: Magnesium Citrate 300 ML BOT PO SCH (08:15)
[2022-04-01] MEDS ORDERED: Bisacodyl 5 MG TAB PO SCH (08:15)
[2022-04-01] MEDS: Enoxaparin Sodium 40 MG/0.4 ML SYRINGE SC SCH (08:24)
[2022-04-01] MEDS: Zinc Sulfate 220 MG CAP PO SCH (08:25)
[2022-04-01] MEDS: Ascorbic Acid 500 mg Chewable Tablet PO SCH (08:25)
[2022-04-01] MEDS: Cholecalciferol (Vitamin D3) 400 UNITS TAB PO SCH (08:26)
[2022-04-01] MEDS ORDERED: predniSONE 5 MG TAB PO SCH (09:00)
[2022-04-01] MEDS ORDERED: Polyethylene Glycol 3350 17 GM Packet PO SCH (09:00)
[2022-04-01] MEDS ORDERED: Iopamidol 370 76% 100 ML VIAL ONE (09:31)
[2022-04-01] MEDS: Morphine 4 MG/ML VIAL SLOW IVP PRN ×3 (09:56→22:36)
[2022-04-01] MEDS: Mometasone Furoate 120 PUFF 220 MCG INH SCH ×2 (10:16→19:02)
[2022-04-01] MEDS ORDERED: Piperacillin/Tazobactam 3.375 GM in Sodium Chloride 0.9% 100 ML IVPB SCH ×2 (11:00→12:00)
[2022-04-01] MEDS ORDERED: GoLYTELY 4,000 ml Bottle PO SCH (11:15)
[2022-04-01] MEDS ORDERED: Cyclobenzaprine 10 MG TAB PO SCH (11:30)
[2022-04-01] MEDS ORDERED: Sodium Chloride 0.9% 500 ML IV SCH (11:30)
[2022-04-01] MEDS ORDERED: Ipratropium Oral Inhaler INH PRN (11:30)
[2022-04-01 11:41] LABS: Hemoglobin 16.9 g/dL (12.0-16.0); Mean Corpuscular HGB CONC 31.1 g/dL (32.0-36.0); Mean Corpuscular Hemoglobin 31.3 pg (27.0-31.0); Mean Platelet Volume 9.4 fL (7.4-10.4); Platelet Count 278 10x3/uL (130-400); RBC Distribution Width 13.3 % (11.5-14.5); Red Blood Cell (RBC) Count 5.41 mill/uL (4.20-5.40); White Blood Cell (WBC) Count 38.8 10x3/uL (4.8-10.8)
[2022-04-01 11:54] LABS: Lactic Acid 8.6 mmol/L (0.5-2.2)
[2022-04-01] MEDS ORDERED: Sodium Chloride 0.9% 1,000 ML IV SCH ×4 (12:00→14:30)
[2022-04-01 12:01] LABS: Anion Gap 19 mmol/L (10-20); BUN (Urea Nitrogen) 41 mg/dL (9.8-20.1); Calc. Creatinine Clearance 31 mL/min (70-130); Calcium 9.4 mg/dL (7.8-10.44); Carbon Dioxide 25 mmol/L (23-31); Chloride 97 mmol/L (98-107); Estimated GFR 44; Glucose 220 mg/dL (83-110); Potassium 4.4 mmol/L (3.5-5.1); Sodium 137 mmol/L (136-145)
[2022-04-01 12:05] LABS: Band 35 % (5-11); Lymphocytes 2 % (21-51); MDiff Complete? YES; Metamyelocyte 2 % (0-0); Monocytes 8 % (0-10); Neutrophil 52 % (42-75); Platelet Morphology Comment Appears Adequate; Polychromasia SLIGHT = 2-3 cells (100X) (0-2/hpf); Reactive Lymphocytes 1 % (0-10); Vacuoles SLIGHT
[2022-04-01 14:45] LABS: Phosphorus 3.4 mg/dL (2.3-4.7)
[2022-04-01] MEDS ORDERED: Fluconazole In NaCl,Iso-Osm 200 MG in Premix Bag 1 BAG IVPB SCH (14:45)
[2022-04-01 14:47] LABS: Magnesium 4.2 mg/dL (1.6-2.6)
[2022-04-01] MEDS ORDERED: Midazolam HCl 5 mg/5 ml Vial ONE (14:54)
[2022-04-01] MEDS ORDERED: fentaNYL PF 100 MCG/2 ML SYRINGE ONE (14:54)
[2022-04-01] MEDS ORDERED: Norepinephrine 4 MG/4 ML VIAL ONE (14:55)
[2022-04-01] MEDS ORDERED: Phenylephrine 10 MG/ML VIAL ONE ×2 (14:55→15:37)
[2022-04-01] MEDS ORDERED: Morphine 4 MG/ML VIAL SLOW IVP SCH (15:00)
[2022-04-01 15:10] LABS: CKMB 2.5 ng/mL (0-6.6)
[2022-04-01] MEDS ORDERED: Albumin 5% 1,000 ML ONE (15:11)
[2022-04-01] MEDS ORDERED: Sodium Chloride 0.9% 100 ML ONE (15:25)
[2022-04-01] MEDS ORDERED: Piperacillin/Tazobactam 3.375 GM VIAL ONE (15:25)
[2022-04-01] MEDS ORDERED: methylPREDNISolone Sod Succ/PF 125 MG/2 ML VIAL ONE (15:26)
[2022-04-01] MEDS ORDERED: Succinylcholine 200 MG/10 ml SYRINGE FS ONE (15:37)
[2022-04-01] MEDS ORDERED: Rocuronium Bromide 10 MG/ML (10ML VIAL) ONE (15:37)
[2022-04-01] MEDS ORDERED: Sodium Bicarb 50 MEQ/50 ML VIAL ONE (16:39)
[2022-04-01] MEDS ORDERED: Ventilator Sedation Protocol 1 EACH FS SCH (17:45)
[2022-04-01] MEDS ORDERED: Midazolam HCl 2 mg/2 ml Vial SLOW IVP PRN (18:10)
[2022-04-01] MEDS ORDERED: Fentanyl BOLUS 250 ML IVPB PRN (18:15)
[2022-04-01] MEDS ORDERED: Propofol 1,000 MG/100 ML VIAL IV PRN (18:15)
[2022-04-01] MEDS ORDERED: Propofol BOLUS 1,000 MG/100 ML VIAL IV PRN (18:15)
[2022-04-01] MEDS ORDERED: DISCONTINUE PREVIOUS NARCOTIC PAIN MEDICATIONS AND BENZODIAZEPINES FS SCH (18:15)
[2022-04-01] MEDS ORDERED: Fentanyl CADD 100 ML IV SCH (18:15)
[2022-04-01 18:19] LABS: Actual Bicarbonate (HCO3a) 19.2 mEq/L (22-28); Base Excess (BEa) -8.4 mEq/L (-2.0 to +3.0); Calcium, Ionized (arterial) 0.95 mmol/L (1.12-1.30); Carboxyhemoglobin (COHb) 0.3 gm% (0.0-3.0); Hemoglobin (Hb) 10.6 g/dL (12.0-16.0); O2 Tension (PaO2), arterial 158.8 mmHg (> 70.0); pH, Arterial 7.21 (7.35-7.45)
[2022-04-01 18:22] LABS: Puncture Site Arterial Line
[2022-04-01 18:40] LABS: Actual Bicarbonate (HCO3v) 17 mEq/L (22-28); Base Excess -7.7 mEq/L (-2.0 to +3.0); Calcium, Ionized (venous) 0.87 mmol/L (1.16-1.32); Chloride (VBG) 111 mmol/L (98-106); Potassium (VBG) 5.05 mmol/L (3.70-5.30); pH (venous) 7.34 (7.32-7.43)
[2022-04-01] MEDS: Acetylcysteine 10% 100 MG/ML 30 ml Vial PO SCH ×2 (18:42→19:00)
[2022-04-01] MEDS: Piperacillin/Tazobactam 3.375 GM in Sodium Chloride 0.9% 100 ML IVPB SCH ×2 (18:43→22:38)
[2022-04-01] MEDS: Lidocaine 5% Patch TD SCH (18:46)
[2022-04-01 19:04] LABS: Hemoglobin 10.3 g/dL (12.0-16.0); Mean Corpuscular HGB CONC 31.3 g/dL (32.0-36.0); Mean Platelet Volume 9.5 fL (7.4-10.4); Platelet Count 110 10x3/uL (130-400); RBC Distribution Width 13.1 % (11.5-14.5); Red Blood Cell (RBC) Count 3.23 mill/uL (4.20-5.40); White Blood Cell (WBC) Count 11.8 10x3/uL (4.8-10.8)
[2022-04-01] MEDS: Micafungin 100 MG in Sodium Chloride 0.9% 100 ML IVPB SCH (19:17)
[2022-04-01] MEDS: Albumin 25% 25 GM/100 ML BOT IVPB SCH ×2 (19:17→22:38)
[2022-04-01] MEDS: Pantoprazole 40 MG VIAL IVP SCH (19:17)
[2022-04-01] MEDS: Hydrocortisone Sod Succ/PF 100 mg/2 ml Vial IVP SCH (19:17)
[2022-04-01] MEDS: Sodium Chloride 0.45% 1,000 ML IV SCH ×2 (19:18→22:43)
[2022-04-01 19:23] LABS: Phosphorus 7.9 mg/dL (2.3-4.7)
[2022-04-01 19:30] LABS: ALT (SGPT) 153 U/L (8-55); AST (SGOT) 136 U/L (5-34); Albumin 2.9 g/dL (3.4-4.8); Alkaline Phosphatase 28 U/L (40-110); Anion Gap 19 mmol/L (10-20); BUN (Urea Nitrogen) 35 mg/dL (9.8-20.1); Bilirubin, Total 1.8 mg/dL (0.2-1.2); Calc. Creatinine Clearance 38 mL/min (70-130); Calcium 6.3 mg/dL (7.8-10.44); Carbon Dioxide 16 mmol/L (23-31); Chloride 111 mmol/L (98-107); Estimated GFR 58; Glucose 144 mg/dL (83-110); Lactic Acid 7.9 mmol/L (0.5-2.2); Magnesium 4.6 mg/dL (1.6-2.6); Potassium 5.2 mmol/L (3.5-5.1); Protein, Total 3.9 g/dL (5.8-8.1); Sodium 141 mmol/L (136-145)
[2022-04-01 19:39] LABS: Band 49 % (5-11); Lymphocytes 4 % (21-51); MDiff Complete? YES; Macrocytosis SLIGHT = 6-15 cells (100X) (0-5/hpf); Metamyelocyte 9 % (0-0); Myelocyte 3 % (0-0); Neutrophil 35 % (42-75); Platelet Morphology Comment Appears Decreased; Polychromasia SLIGHT = 2-3 cells (100X) (0-2/hpf)
[2022-04-01] MEDS ORDERED: Lactated Ringer's 1,000 ML IV SCH (20:15)
[2022-04-01] MEDS ORDERED: CALCIUM GLUC 1 GM/NS 50 ML 1 GM in Premix Bag 1 BAG IVPB SCH (20:15)
[2022-04-02] MEDS: Hydrocortisone Sod Succ/PF 100 mg/2 ml Vial IVP SCH ×4 (01:45→20:19)
[2022-04-02] MEDS: Morphine 4 MG/ML VIAL SLOW IVP PRN ×4 (01:49→10:23)
[2022-04-02 04:39] LABS: Phosphorus 5.2 mg/dL (2.3-4.7)
[2022-04-02 04:49] LABS: ALT (SGPT) 642 U/L (8-55); AST (SGOT) 751 U/L (5-34); Albumin 3.8 g/dL (3.4-4.8); Alkaline Phosphatase 27 U/L (40-110); Anion Gap 15 mmol/L (10-20); BUN (Urea Nitrogen) 29 mg/dL (9.8-20.1); Bilirubin, Total 2.3 mg/dL (0.2-1.2); Calc. Creatinine Clearance 0 mL/min (70-130); Calcium 7.5 mg/dL (7.8-10.44); Carbon Dioxide 22 mmol/L (23-31); Chloride 106 mmol/L (98-107); Estimated GFR 67; Glucose 134 mg/dL (83-110); Magnesium 4.8 mg/dL (1.6-2.6); Potassium 4.9 mmol/L (3.5-5.1); Protein, Total 4.8 g/dL (5.8-8.1); Sodium 138 mmol/L (136-145)
[2022-04-02] MEDS: Transdermal Patch Removal TOP SCH (04:57)
[2022-04-02] MEDS: Albumin 25% 25 GM/100 ML BOT IVPB SCH ×2 (05:35→12:57)
[2022-04-02] MEDS: Sodium Chloride 0.45% 1,000 ML IV SCH ×3 (05:42→20:16)
[2022-04-02 07:46] LABS: Actual Bicarbonate (HCO3a) 23.9 mEq/L (22-28); Base Excess (BEa) -1.3 mEq/L (-2.0 to +3.0); CO2 Tension 41.8 mmHg (35.0-45.0); Carboxyhemoglobin (COHb) 0.3 gm% (0.0-3.0); Hemoglobin (Hb) 10.3 g/dL (12.0-16.0); O2 Tension (PaO2), arterial 149.1 mmHg (> 70.0); Potassium - ABG Lab 4.49 mmol/L (3.70-5.30); pH, Arterial 7.38 (7.35-7.45)
[2022-04-02 07:47] LABS: Hemoglobin 11.3 g/dL (12.0-16.0); Mean Corpuscular HGB CONC 32.9 g/dL (32.0-36.0); Mean Corpuscular Hemoglobin 33.7 pg (27.0-31.0); Mean Platelet Volume 9.6 fL (7.4-10.4); Platelet Count 105 10x3/uL (130-400); RBC Distribution Width 13.2 % (11.5-14.5); Red Blood Cell (RBC) Count 3.35 mill/uL (4.20-5.40); White Blood Cell (WBC) Count 7.7 10x3/uL (4.8-10.8)
[2022-04-02 07:50] LABS: Puncture Site Arterial Line
[2022-04-02] MEDS: Piperacillin/Tazobactam 3.375 GM in Sodium Chloride 0.9% 100 ML IVPB SCH ×3 (08:27→23:35)
[2022-04-02] MEDS: Pantoprazole 40 MG VIAL IVP SCH ×2 (08:27→20:19)
[2022-04-02] MEDS: Mometasone Furoate 120 PUFF 220 MCG INH SCH ×2 (08:29→17:57)
[2022-04-02 08:33] LABS: Band 45 % (5-11); Lymphocytes 5 % (21-51); MDiff Complete? YES; Metamyelocyte 23 % (0-0); Monocytes 1 % (0-10); Myelocyte 5 % (0-0); Neutrophil 17 % (42-75); Nucleated RBC 1 % (0); Platelet Morphology Comment Appears Decreased; Reactive Lymphocytes 4 % (0-10); Vacuoles MODERATE
[2022-04-02 08:54] LABS: Lactic Acid 2.6 mmol/L (0.5-2.2)
[2022-04-02] MEDS ORDERED: Enoxaparin Sodium 30 MG/0.3 ML SYRINGE SC SCH (09:00)
[2022-04-02] MEDS: Acetylcysteine 10% 100 MG/ML 30 ml Vial PO SCH ×2 (12:54→17:57)
[2022-04-02] MEDS: Zinc Sulfate 220 MG CAP PO SCH (12:54)
[2022-04-02] MEDS ORDERED: Fentanyl CADD 100 ML ONE (17:36)
[2022-04-02] MEDS: Lidocaine 5% Patch TD SCH (17:51)
[2022-04-02] MEDS: Micafungin 100 MG in Sodium Chloride 0.9% 100 ML IVPB SCH (20:16)
[2022-04-02] MEDS ORDERED: Amino Acids 4.25 %/Dextrose 5% 2,000 ML BAG IV SCH (21:00)
[2022-04-03] MEDS: Sodium Chloride 0.45% 1,000 ML IV SCH ×2 (03:25→08:22)
[2022-04-03] MEDS: Transdermal Patch Removal TOP SCH (03:25)
[2022-04-03] MEDS: Hydrocortisone Sod Succ/PF 100 mg/2 ml Vial IVP SCH ×3 (03:25→15:00)
[2022-04-03 04:00] LABS: ALT (SGPT) 324 U/L (8-55); AST (SGOT) 223 U/L (5-34); Albumin 3.3 g/dL (3.4-4.8); Alkaline Phosphatase 43 U/L (40-110); Anion Gap 15 mmol/L (10-20); BUN (Urea Nitrogen) 20 mg/dL (9.8-20.1); Bilirubin, Total 2.8 mg/dL (0.2-1.2); Calc. Creatinine Clearance 58 mL/min (70-130); Calcium 7.5 mg/dL (7.8-10.44); Carbon Dioxide 20 mmol/L (23-31); Chloride 101 mmol/L (98-107); Estimated GFR 90; Globulin 1.3 g/dL (2.4-3.5); Glucose 65 mg/dL (83-110); Potassium 3.5 mmol/L (3.5-5.1); Protein, Total 4.6 g/dL (5.8-8.1); Sodium 132 mmol/L (136-145)
[2022-04-03 06:46] LABS: Actual Bicarbonate (HCO3a) 19.6 mEq/L (22-28); Base Excess (BEa) -4.5 mEq/L (-2.0 to +3.0); CO2 Tension 32.9 mmHg (35.0-45.0); Calcium, Ionized (arterial) 1.05 mmol/L (1.12-1.30); Carboxyhemoglobin (COHb) 0.1 gm% (0.0-3.0); Hemoglobin (Hb) 10.5 g/dL (12.0-16.0); O2 Tension (PaO2), arterial 109.9 mmHg (> 70.0); Potassium - ABG Lab 3.52 mmol/L (3.70-5.30); pH, Arterial 7.39 (7.35-7.45)
[2022-04-03 06:54] LABS: ALV-art Gradient 255.385 mmHg (0-20); Puncture Site Arterial Line
[2022-04-03] MEDS: Mometasone Furoate 120 PUFF 220 MCG INH SCH (06:59)
[2022-04-03] MEDS: Acetylcysteine 10% 100 MG/ML 30 ml Vial PO SCH (08:22)
[2022-04-03] MEDS: Piperacillin/Tazobactam 3.375 GM in Sodium Chloride 0.9% 100 ML IVPB SCH ×2 (08:22→15:00)
[2022-04-03] MEDS: Pantoprazole 40 MG VIAL IVP SCH ×2 (08:22→20:11)
[2022-04-03] MEDS: Zinc Sulfate 220 MG CAP PO SCH (08:22)
[2022-04-03] MEDS ORDERED: LYTES IN TPN IVPB PRN (09:14)
[2022-04-03 09:54] LABS: INR-International Normal Ratio 1.4; PTT 39.7 sec (22.9-36.1); Prothrombin Time 18.2 sec (12.0-14.7)
[2022-04-03] MEDS ORDERED: Sodium Chloride 0.45% 1,000 ML IV SCH (10:00)
[2022-04-03 10:35] LABS: Actual Bicarbonate (HCO3a) 20.9 mEq/L (22-28); Base Excess (BEa) -3.1 mEq/L (-2.0 to +3.0); CO2 Tension 33.5 mmHg (35.0-45.0); Calcium, Ionized (arterial) 1.06 mmol/L (1.12-1.30); Carboxyhemoglobin (COHb) 0.3 gm% (0.0-3.0); Hemoglobin (Hb) 9.5 g/dL (12.0-16.0); O2 Tension (PaO2), arterial 93.3 mmHg (> 70.0); Potassium - ABG Lab 3.57 mmol/L (3.70-5.30); pH, Arterial 7.41 (7.35-7.45)
[2022-04-03 10:37] LABS: Cholesterol 61 mg/dL (< 200 Desired); Phosphorus 3.4 mg/dL (2.3-4.7)
[2022-04-03 10:38] LABS: HDL Cholesterol Less than 8 mg/dL (>60 Neg Risk); Magnesium 3.5 mg/dL (1.6-2.6); Triglycerides 190 mg/dL (Less than 150)
[2022-04-03 10:39] LABS: ALV-art Gradient 185.675 mmHg (0-20); Puncture Site Arterial Line
[2022-04-03] MEDS ORDERED: Hydrocortisone Sod Succ/PF 100 mg/2 ml Vial IVP SCH (11:00)
[2022-04-03] MEDS ORDERED: Furosemide 20 MG/2 ML VIAL SLOW IVP SCH (12:05)
[2022-04-03] MEDS ORDERED: Dextrose 50% Abboject 50 ML SYRINGE SLOW IVP PRN (12:18)
[2022-04-03] MEDS ORDERED: HumaLOG 300 UNITS/3 ML VIAL SC PRN ×2 (12:18→19:00)
[2022-04-03] MEDS ORDERED: Dextrose 5% in Water 1,000 ML IV PRN (12:18)
[2022-04-03] MEDS: Multivitamins, Adult 10 ML, TRACE ELEMENT CONCENTRATE 1 ML in D15W-AA 5% with Lytes 2,0... IV SCH (14:51)
[2022-04-03] MEDS: Lidocaine 5% Patch TD SCH (15:04)
[2022-04-03] MEDS: Micafungin 100 MG in Sodium Chloride 0.9% 100 ML IVPB SCH (20:12)
[2022-04-03] MEDS: Enoxaparin Sodium 40 MG/0.4 ML SYRINGE SC SCH (20:12)
[2022-04-03] MEDS ORDERED: Morphine 4 MG/ML VIAL SLOW IVP PRN (20:49)
[2022-04-03] MEDS: Morphine 4 MG/ML VIAL SLOW IVP PRN (21:06)
[2022-04-04] MEDS: Hydrocortisone Sod Succ/PF 100 mg/2 ml Vial IVP SCH ×2 (01:12→09:58)
[2022-04-04] MEDS: Insulin Regular 300 UNITS/3 ML VIAL SC SCH ×2 (01:12→06:18)
[2022-04-04] MEDS: Piperacillin/Tazobactam 3.375 GM in Sodium Chloride 0.9% 100 ML IVPB SCH ×3 (01:12→15:00)
[2022-04-04 01:34] LABS: Base Excess (BEa) 0.2 mEq/L (-2.0 to +3.0); CO2 Tension 47.2 mmHg (35.0-45.0); Calcium, Ionized (arterial) 1.15 mmol/L (1.12-1.30); Carboxyhemoglobin (COHb) 0.1 gm% (0.0-3.0); Hemoglobin (Hb) 10.4 g/dL (12.0-16.0); O2 Tension (PaO2), arterial 69.4 mmHg (> 70.0); Potassium - ABG Lab 2.78 mmol/L (3.70-5.30); pH, Arterial 7.36 (7.35-7.45)
[2022-04-04 01:35] LABS: Puncture Site ARTERIAL LINE
[2022-04-04] MEDS: Morphine 4 MG/ML VIAL SLOW IVP PRN ×4 (02:10→20:55)
[2022-04-04 04:05] LABS: ALT (SGPT) 264 U/L (8-55); AST (SGOT) 145 U/L (5-34); Albumin 3.3 g/dL (3.4-4.8); Alkaline Phosphatase 103 U/L (40-110); Anion Gap 11 mmol/L (10-20); BUN (Urea Nitrogen) 26 mg/dL (9.8-20.1); Bilirubin, Total 3.2 mg/dL (0.2-1.2); Calc. Creatinine Clearance 66 mL/min (70-130); Calcium 8.7 mg/dL (7.8-10.44); Carbon Dioxide 27 mmol/L (23-31); Chloride 102 mmol/L (98-107); Estimated GFR 90; Globulin 2.1 g/dL (2.4-3.5); Glucose 214 mg/dL (83-110); Magnesium 2.8 mg/dL (1.6-2.6); Potassium 2.8 mmol/L (3.5-5.1); Protein, Total 5.4 g/dL (5.8-8.1); Sodium 137 mmol/L (136-145)
[2022-04-04 04:26] LABS: Band 12 % (5-11); Hemoglobin 9.7 g/dL (12.0-16.0); MDiff Complete? YES; Mean Corpuscular HGB CONC 31.6 g/dL (32.0-36.0); Mean Corpuscular Hemoglobin 31.6 pg (27.0-31.0); Mean Corpuscular Volume 99.9 fl (78.0-98.0); Mean Platelet Volume 10.3 fL (7.4-10.4); Monocytes 1 % (0-10); Neutrophil 87 % (42-75); Platelet Count 67 10x3/uL (130-400); Platelet Morphology Comment Appears Decreased; Red Blood Cell (RBC) Count 3.09 mill/uL (4.20-5.40); White Blood Cell (WBC) Count 16.8 10x3/uL (4.8-10.8)
[2022-04-04] MEDS ORDERED: Electrolyte Replacement Protocol 1 EACH FS SCH (04:30)
[2022-04-04] MEDS: Potassium Chloride 40 MEQ in Premix Bag 1 BAG IVPB SCH ×2 (05:22→08:10)
[2022-04-04] MEDS: Transdermal Patch Removal TOP SCH (05:45)
[2022-04-04] MEDS ORDERED: Furosemide 20 MG/2 ML VIAL SLOW IVP SCH (08:00)
[2022-04-04] MEDS: Ascorbic Acid 500 mg Chewable Tablet PO SCH (08:10)
[2022-04-04] MEDS: Pantoprazole 40 MG VIAL IVP SCH ×2 (08:10→20:48)
[2022-04-04] MEDS ORDERED: methylPREDNISolone Sod Succ 40 MG VIAL IVP SCH (09:15)
[2022-04-04] MEDS: methylPREDNISolone Sod Succ 40 MG VIAL IVP SCH ×2 (09:51→09:55)
[2022-04-04] MEDS: Diltiazem 125 MG in Sodium Chloride 0.9% 100 ML IVPB SCH (09:52)
[2022-04-04 10:21] LABS: Platelet Count 67 10x3/uL (130-400)
[2022-04-04 10:34] LABS: PTT 30.5 sec (22.9-36.1); Prothrombin Time 13.1 sec (12.0-14.7)
[2022-04-04 10:42] LABS: D-Dimer Test 12.15 *mcg/mL (0.27-0.43)
[2022-04-04 10:53] LABS: Fibrinogen 1046 mg/dL (253-463)
[2022-04-04 13:43] LABS: Potassium 3.4 mmol/L (3.5-5.1)
[2022-04-04] MEDS: Multivitamins, Adult 10 ML, TRACE ELEMENT CONCENTRATE 1 ML in D15W-AA 5% with Lytes 2,0... IV SCH (13:44)
[2022-04-04] MEDS: Ondansetron PF 4 MG/2 ML Vial IVP PRN (14:04)
[2022-04-04] MEDS: Furosemide 20 MG/2 ML VIAL SLOW IVP SCH ×2 (14:05→20:48)
[2022-04-04] MEDS: Lidocaine 5% Patch TD SCH (15:00)
[2022-04-04 19:59] LABS: Potassium 3.6 mmol/L (3.5-5.1)
[2022-04-04] MEDS: Micafungin 100 MG in Sodium Chloride 0.9% 100 ML IVPB SCH (20:48)
[2022-04-05] MEDS: Morphine 4 MG/ML VIAL SLOW IVP PRN (00:39)
[2022-04-05] MEDS: Piperacillin/Tazobactam 3.375 GM in Sodium Chloride 0.9% 100 ML IVPB SCH ×4 (00:40→23:24)
[2022-04-05] MEDS: Diltiazem 125 MG in Sodium Chloride 0.9% 100 ML IVPB SCH ×3 (00:50→21:58)
[2022-04-05] MEDS: Insulin Regular 300 UNITS/3 ML VIAL SC PRN ×3 (00:52→18:34)
[2022-04-05 01:46] LABS: Potassium 3.2 mmol/L (3.5-5.1)
[2022-04-05] MEDS: Furosemide 20 MG/2 ML VIAL SLOW IVP SCH ×2 (01:59→14:53)
[2022-04-05] MEDS ORDERED: Potassium Chloride 40 MEQ in Premix Bag 1 BAG IVPB SCH (02:00)
[2022-04-05] MEDS ORDERED: Morphine 4 MG/ML VIAL SLOW IVP SCH (02:30)
[2022-04-05] MEDS: FENTANYL 50 MCG/ML 1 ML VIAL SLOW IVP PRN ×6 (03:47→23:24)
[2022-04-05] MEDS: hydrALAZINE 20 MG/ML VIAL SLOW IVP PRN (04:55)
[2022-04-05] MEDS: Transdermal Patch Removal TOP SCH (05:21)
[2022-04-05 06:19] LABS: ALT (SGPT) 176 U/L (8-55); AST (SGOT) 84 U/L (5-34); Albumin 3.4 g/dL (3.4-4.8); Alkaline Phosphatase 90 U/L (40-110); Anion Gap 14 mmol/L (10-20); BUN (Urea Nitrogen) 33 mg/dL (9.8-20.1); Bilirubin, Total 4.8 mg/dL (0.2-1.2); Calc. Creatinine Clearance 61 mL/min (70-130); Calcium 9.4 mg/dL (7.8-10.44); Carbon Dioxide 30 mmol/L (23-31); Chloride 104 mmol/L (98-107); Estimated GFR 88; Globulin 2.5 g/dL (2.4-3.5); Glucose 155 mg/dL (83-110); Potassium 3.7 mmol/L (3.5-5.1); Protein, Total 5.9 g/dL (5.8-8.1); Sodium 144 mmol/L (136-145)
[2022-04-05 06:29] LABS: Band 29 % (5-11); Hemoglobin 10.8 g/dL (12.0-16.0); Lymphocytes 3 % (21-51); MDiff Complete? YES; Mean Corpuscular HGB CONC 31.1 g/dL (32.0-36.0); Mean Corpuscular Hemoglobin 31.1 pg (27.0-31.0); Monocytes 5 % (0-10); Neutrophil 63 % (42-75); Platelet Count 75 10x3/uL (130-400); Platelet Morphology Comment Appears Decreased; RBC Distribution Width 13.3 % (11.5-14.5); Red Blood Cell (RBC) Count 3.48 mill/uL (4.20-5.40); White Blood Cell (WBC) Count 8.8 10x3/uL (4.8-10.8)
[2022-04-05 08:02] LABS: Actual Bicarbonate (HCO3a) 31.7 mEq/L (22-28); Base Excess (BEa) 7.6 mEq/L (-2.0 to +3.0); CO2 Tension 42.3 mmHg (35.0-45.0); Calcium, Ionized (arterial) 1.15 mmol/L (1.12-1.30); Carboxyhemoglobin (COHb) 0.5 gm% (0.0-3.0); Hemoglobin (Hb) 11.8 g/dL (12.0-16.0); Potassium - ABG Lab 3.49 mmol/L (3.70-5.30); pH, Arterial 7.49 (7.35-7.45)
[2022-04-05 08:04] LABS: ALV-art Gradient 318.425 mmHg (0-20); O2 Tension (PaO2), arterial 56.5 mmHg (> 70.0); Puncture Site LRA
[2022-04-05] MEDS: Pantoprazole 40 MG VIAL IVP SCH ×2 (08:28→21:18)
[2022-04-05] MEDS: Ascorbic Acid 500 mg Chewable Tablet PO SCH (08:28)
[2022-04-05] MEDS: methylPREDNISolone Sod Succ 40 MG VIAL IVP SCH (08:29)
[2022-04-05] MEDS ORDERED: Potassium Chloride 20 MEQ in Premix Bag 1 BAG IVPB SCH (08:45)
[2022-04-05] MEDS: Multivitamins, Adult 10 ML, TRACE ELEMENT CONCENTRATE 1 ML in D15W-AA 5% with Lytes 2,0... IV SCH (14:30)
[2022-04-05] MEDS: Ondansetron PF 4 MG/2 ML Vial IVP PRN ×2 (16:12→23:34)
[2022-04-05] MEDS: Lidocaine 5% Patch TD SCH (19:12)
[2022-04-05] MEDS: Micafungin 100 MG in Sodium Chloride 0.9% 100 ML IVPB SCH (21:18)
[2022-04-06] MEDS: hydrALAZINE 20 MG/ML VIAL SLOW IVP PRN ×3 (00:37→22:36)
[2022-04-06] MEDS: FENTANYL 50 MCG/ML 1 ML VIAL SLOW IVP PRN ×6 (01:51→22:09)
[2022-04-06 05:31] LABS: #Lymphocytes 0.4 thou/uL (1.20-3.40); #Monocytes 0.2 thou/uL (0.11-0.59); #Neutrophils 6.6 thou/uL (1.40-6.50); %Eosinophils 0.3 % (0.0-10.0); %Lymphocytes 5.9 % (21.0-51.0); %Monocytes 3.2 % (0.0-10.0); %Neutrophils 90.7 % (42.0-75.0); Hemoglobin 10.4 g/dL (12.0-16.0); Mean Corpuscular HGB CONC 31.6 g/dL (32.0-36.0); Mean Corpuscular Hemoglobin 31.9 pg (27.0-31.0); Mean Platelet Volume 10.3 fL (7.4-10.4); Platelet Count 80 10x3/uL (130-400); RBC Distribution Width 13.5 % (11.5-14.5); Red Blood Cell (RBC) Count 3.27 mill/uL (4.20-5.40); White Blood Cell (WBC) Count 7.3 10x3/uL (4.8-10.8)
[2022-04-06] MEDS: Furosemide 20 MG/2 ML VIAL SLOW IVP SCH (05:48)
[2022-04-06] MEDS: Transdermal Patch Removal TOP SCH (05:49)
[2022-04-06 06:00] LABS: Anion Gap 16 mmol/L (10-20); BUN (Urea Nitrogen) 39 mg/dL (9.8-20.1); Calc. Creatinine Clearance 70 mL/min (70-130); Calcium 9.6 mg/dL (7.8-10.44); Carbon Dioxide 30 mmol/L (23-31); Chloride 108 mmol/L (98-107); Estimated GFR 92; Glucose 152 mg/dL (83-110)
[2022-04-06 06:07] LABS: Sodium 151 mmol/L (136-145)
[2022-04-06 07:20] LABS: Anion Gap 16 mmol/L (10-20); BUN (Urea Nitrogen) 39 mg/dL (9.8-20.1); Calc. Creatinine Clearance 65 mL/min (70-130); Carbon Dioxide 33 mmol/L (23-31); Chloride 108 mmol/L (98-107); Estimated GFR 90; Glucose 165 mg/dL (83-110); Potassium 2.9 mmol/L (3.5-5.1)
[2022-04-06 07:23] LABS: Sodium 154 mmol/L (136-145)
[2022-04-06] MEDS ORDERED: Potassium Chloride 40 MEQ in Premix Bag 1 BAG IVPB SCH (07:45)
[2022-04-06] MEDS ORDERED: Dextrose 5% in Water 1,000 ML IV SCH ×2 (07:45→10:15)
[2022-04-06 08:04] LABS: Phosphorus 2.8 mg/dL (2.3-4.7)
[2022-04-06] MEDS ORDERED: PIPERACILLIN IVPB PRN (08:04)
[2022-04-06] MEDS ORDERED: DEXTROSE IVPB PRN (08:04)
[2022-04-06] MEDS ORDERED: TAZOBACTAM IVPB PRN (08:04)
[2022-04-06 08:06] LABS: Magnesium 2.1 mg/dL (1.6-2.6)
[2022-04-06] MEDS: DEXTROSE 5% IVPB SCH ×2 (08:10→10:08)
[2022-04-06] MEDS: WATER IVPB SCH ×2 (08:10→10:08)
[2022-04-06] MEDS: POTASSIUM CHLORIDE IVPB SCH ×2 (08:10→10:08)
[2022-04-06] MEDS: Piperacillin/Tazobactam 3.375 GM in Sodium Chloride 0.9% 100 ML IVPB SCH (08:18)
[2022-04-06] MEDS: Ascorbic Acid 500 mg Chewable Tablet PO SCH ×2 (09:05→10:45)
[2022-04-06] MEDS: Pantoprazole 40 MG VIAL IVP SCH ×2 (09:05→20:35)
[2022-04-06] MEDS: methylPREDNISolone Sod Succ 40 MG VIAL IVP SCH (09:08)
[2022-04-06] MEDS ORDERED: Meropenem 1 GM in Sodium Chloride 0.9% 100 ML IVPB SCH ×4 (10:00→18:00)
[2022-04-06] MEDS: Diltiazem 125 MG in Sodium Chloride 0.9% 100 ML IVPB SCH ×2 (12:19→20:33)
[2022-04-06] MEDS: Insulin Regular 300 UNITS/3 ML VIAL SC PRN ×2 (12:43→18:33)
[2022-04-06] MEDS: POTASSIUM ACETATE IV SCH (14:24)
[2022-04-06] MEDS: POTASSIUM PHOSPHATE IV SCH (14:24)
[2022-04-06] MEDS: [UNRECOGNIZED DRUG - OTHER] IV SCH (14:24)
[2022-04-06 14:29] LABS: Potassium 4.2 mmol/L (3.5-5.1)
[2022-04-06] MEDS ORDERED: TAZOBACTAM IVPB SCH (16:00)
[2022-04-06] MEDS ORDERED: PIPERACILLIN IVPB SCH (16:00)
[2022-04-06] MEDS ORDERED: WATER IVPB SCH (16:00)
[2022-04-06] MEDS ORDERED: ADMIXTURE FEE IVPB SCH (16:00)
[2022-04-06] MEDS ORDERED: DEXTROSE IVPB SCH (16:00)
[2022-04-06] MEDS: Meropenem 1 GM in Sodium Chloride 0.9% 100 ML IVPB SCH (17:47)
[2022-04-06] MEDS: Lidocaine 5% Patch TD SCH (17:55)
[2022-04-06] MEDS ORDERED: Methocarbamol 500 MG TAB PO SCH (19:30)
[2022-04-06] MEDS: Enoxaparin Sodium 40 MG/0.4 ML SYRINGE SC SCH (20:34)
[2022-04-06] MEDS: Micafungin 100 MG in Sodium Chloride 0.9% 100 ML IVPB SCH ×2 (20:35→21:34)
[2022-04-06] MEDS: Ondansetron PF 4 MG/2 ML Vial IVP PRN (22:09)
[2022-04-07] MEDS ORDERED: Dextrose 5% in Water 1,000 ML IV PRN (00:16)
[2022-04-07] MEDS ORDERED: Insulin NPH Human Isophane 100 UNIT/ML (10 ML VIAL) SC SCH (00:45)
[2022-04-07] MEDS: HumaLOG 300 UNITS/3 ML VIAL SC PRN ×4 (01:05→18:20)
[2022-04-07] MEDS: Meropenem 1 GM in Sodium Chloride 0.9% 100 ML IVPB SCH ×3 (01:38→17:16)
[2022-04-07] MEDS: FENTANYL 50 MCG/ML 1 ML VIAL SLOW IVP PRN ×5 (01:38→23:48)
[2022-04-07 04:38] LABS: Anion Gap 14 mmol/L (10-20); BUN (Urea Nitrogen) 37 mg/dL (9.8-20.1); Calc. Creatinine Clearance 64 mL/min (70-130); Calcium 9.1 mg/dL (7.8-10.44); Carbon Dioxide 27 mmol/L (23-31); Chloride 108 mmol/L (98-107); Estimated GFR 90; Glucose 392 mg/dL (83-110); Potassium 3.3 mmol/L (3.5-5.1); Sodium 146 mmol/L (136-145)
[2022-04-07 04:55] LABS: Band 40 % (5-11); Hemoglobin 9.6 g/dL (12.0-16.0); Lymphocytes 7 % (21-51); MDiff Complete? YES; Mean Corpuscular HGB CONC 31.9 g/dL (32.0-36.0); Mean Platelet Volume 10.7 fL (7.4-10.4); Monocytes 2 % (0-10); Neutrophil 51 % (42-75); Platelet Count 70 10x3/uL (130-400); Platelet Morphology Comment Appears Decreased; RBC Distribution Width 13.3 % (11.5-14.5); Red Blood Cell (RBC) Count 2.99 mill/uL (4.20-5.40); White Blood Cell (WBC) Count 8.8 10x3/uL (4.8-10.8)
[2022-04-07] MEDS: Transdermal Patch Removal TOP SCH (05:44)
[2022-04-07] MEDS: Diltiazem 125 MG in Sodium Chloride 0.9% 100 ML IVPB SCH ×3 (06:55→22:53)
[2022-04-07] MEDS ORDERED: Potassium Chloride 40 MEQ in Premix Bag 1 BAG IVPB SCH (08:00)
[2022-04-07] MEDS: methylPREDNISolone Sod Succ 40 MG VIAL IVP SCH (09:19)
[2022-04-07] MEDS: Pantoprazole 40 MG VIAL IVP SCH ×2 (09:20→20:35)
[2022-04-07] MEDS: Ascorbic Acid 500 mg Chewable Tablet PO SCH (09:20)
[2022-04-07] MEDS: Zinc Sulfate 220 MG CAP PO SCH (09:20)
[2022-04-07] MEDS: Insulin NPH Human Isophane 100 UNIT/ML (10 ML VIAL) SC SCH ×2 (09:21→20:36)
[2022-04-07] MEDS: hydrALAZINE 20 MG/ML VIAL SLOW IVP PRN (14:20)
[2022-04-07] MEDS: POTASSIUM PHOSPHATE IV SCH (14:56)
[2022-04-07] MEDS: [UNRECOGNIZED DRUG - OTHER] IV SCH (14:56)
[2022-04-07] MEDS: POTASSIUM ACETATE IV SCH (14:56)
[2022-04-07] MEDS: Lidocaine 5% Patch TD SCH (17:17)
[2022-04-07] MEDS: Enoxaparin Sodium 40 MG/0.4 ML SYRINGE SC SCH (20:35)
[2022-04-08] MEDS: Meropenem 1 GM in Sodium Chloride 0.9% 100 ML IVPB SCH ×3 (03:16→18:07)
[2022-04-08] MEDS: FENTANYL 50 MCG/ML 1 ML VIAL SLOW IVP PRN ×2 (04:24→09:40)
[2022-04-08 04:38] LABS: Anion Gap 11 mmol/L (10-20); BUN (Urea Nitrogen) 36 mg/dL (9.8-20.1); Calc. Creatinine Clearance 78 mL/min (70-130); Calcium 9.1 mg/dL (7.8-10.44); Carbon Dioxide 27 mmol/L (23-31); Chloride 108 mmol/L (98-107); Estimated GFR 94; Glucose 175 mg/dL (83-110); Potassium 4.8 mmol/L (3.5-5.1); Sodium 141 mmol/L (136-145)
[2022-04-08] MEDS: hydrALAZINE 20 MG/ML VIAL SLOW IVP PRN (05:42)
[2022-04-08 06:39] LABS: Hemoglobin 9.8 g/dL (12.0-16.0); Mean Corpuscular HGB CONC 31.2 g/dL (32.0-36.0); Mean Corpuscular Hemoglobin 31.3 pg (27.0-31.0); Mean Platelet Volume 11.4 fL (7.4-10.4); Platelet Count 72 10x3/uL (130-400); RBC Distribution Width 13.4 % (11.5-14.5); Red Blood Cell (RBC) Count 3.13 mill/uL (4.20-5.40); White Blood Cell (WBC) Count 12.2 10x3/uL (4.8-10.8)
[2022-04-08 06:40] LABS: Band 53 % (5-11); Lymphocytes 8 % (21-51); MDiff Complete? YES; Monocytes 1 % (0-10); Neutrophil 36 % (42-75); Platelet Morphology Comment Appears Decreased; Polychromasia SLIGHT = 2-3 cells (100X) (0-2/hpf); Reactive Lymphocytes 2 % (0-10)
[2022-04-08] MEDS: Transdermal Patch Removal TOP SCH (08:05)
[2022-04-08] MEDS: methylPREDNISolone Sod Succ 40 MG VIAL IVP SCH (09:40)
[2022-04-08] MEDS ORDERED: Acetaminophen 325 MG/10.15 ML UDCUP PO PRN (09:40)
[2022-04-08] MEDS: Ascorbic Acid 500 mg Chewable Tablet PO SCH (09:41)
[2022-04-08] MEDS: Zinc Sulfate 220 MG CAP PO SCH (09:41)
[2022-04-08] MEDS: Pantoprazole 40 MG VIAL IVP SCH ×2 (09:41→20:38)
[2022-04-08] MEDS: Insulin NPH Human Isophane 100 UNIT/ML (10 ML VIAL) SC SCH ×2 (09:42→20:40)
[2022-04-08] MEDS: HumaLOG 300 UNITS/3 ML VIAL SC PRN ×2 (10:05→18:14)
[2022-04-08 11:18] VITALS: BP 135/53
[2022-04-08] MEDS: traMADol HCl 50 MG TAB PO PRN ×2 (14:20→20:34)
[2022-04-08] MEDS: POTASSIUM PHOSPHATE IV SCH (14:21)
[2022-04-08] MEDS: POTASSIUM ACETATE IV SCH (14:21)
[2022-04-08] MEDS: [UNRECOGNIZED DRUG - OTHER] IV SCH (14:21)
[2022-04-08] MEDS: Lidocaine 5% Patch TD SCH (18:08)
[2022-04-08] MEDS: Enoxaparin Sodium 40 MG/0.4 ML SYRINGE SC SCH ×2 (20:41→21:58)
[2022-04-08] MEDS ORDERED: NOREPINEPHRINE 8 MG/250 ML-D5W 0 ML ONE (20:42)
[2022-04-09] MEDS: HumaLOG 300 UNITS/3 ML VIAL SC PRN ×3 (00:34→18:03)
[2022-04-09] MEDS: Meropenem 1 GM in Sodium Chloride 0.9% 100 ML IVPB SCH ×3 (02:13→18:07)
[2022-04-09] MEDS: traMADol HCl 50 MG TAB PO PRN ×3 (02:45→15:29)
[2022-04-09 05:22] LABS: Anion Gap 9 mmol/L (10-20); BUN (Urea Nitrogen) 38 mg/dL (9.8-20.1); Calc. Creatinine Clearance 84 mL/min (70-130); Calcium 8.5 mg/dL (7.8-10.44); Carbon Dioxide 27 mmol/L (23-31); Chloride 106 mmol/L (98-107); Estimated GFR 95; Glucose 185 mg/dL (83-110); Potassium 4.8 mmol/L (3.5-5.1); Sodium 137 mmol/L (136-145)
[2022-04-09 05:36] LABS: Hemoglobin 9.8 g/dL (12.0-16.0); Mean Corpuscular HGB CONC 31.9 g/dL (32.0-36.0); Mean Corpuscular Hemoglobin 32.1 pg (27.0-31.0); Mean Platelet Volume 11.3 fL (7.4-10.4); Platelet Count 78 10x3/uL (130-400); RBC Distribution Width 13.7 % (11.5-14.5); Red Blood Cell (RBC) Count 3.05 mill/uL (4.20-5.40); White Blood Cell (WBC) Count 9.9 10x3/uL (4.8-10.8)
[2022-04-09 06:02] LABS: Band 49 % (5-11); Lymphocytes 7 % (21-51); MDiff Complete? YES; Monocytes 5 % (0-10); Neutrophil 39 % (42-75); Platelet Morphology Comment Appears Decreased
[2022-04-09] MEDS: FENTANYL 50 MCG/ML 1 ML VIAL SLOW IVP PRN (07:27)
[2022-04-09] MEDS ORDERED: Nystatin Powder 15 GM BOT TOP PRN (08:56)
[2022-04-09] MEDS ORDERED: Insulin Glargine 30 UNITS/0.3 ML VIAL SC SCH (09:00)
[2022-04-09] MEDS ORDERED: FENTANYL 50 MCG/ML 1 ML VIAL SLOW IVP SCH (09:45)
[2022-04-09] MEDS: methylPREDNISolone Sod Succ 40 MG VIAL IVP SCH (09:57)
[2022-04-09] MEDS: Transdermal Patch Removal TOP SCH (09:57)
[2022-04-09] MEDS: Ascorbic Acid 500 mg Chewable Tablet PO SCH (09:58)
[2022-04-09] MEDS: Zinc Sulfate 220 MG CAP PO SCH (09:58)
[2022-04-09] MEDS: Pantoprazole 40 MG VIAL IVP SCH ×2 (10:11→22:21)
[2022-04-09] MEDS: Insulin NPH Human Isophane 100 UNIT/ML (10 ML VIAL) SC SCH ×2 (12:12→22:21)
[2022-04-09] MEDS: [UNRECOGNIZED DRUG - OTHER] IV SCH (13:31)
[2022-04-09] MEDS: POTASSIUM PHOSPHATE IV SCH (13:31)
[2022-04-09] MEDS: POTASSIUM ACETATE IV SCH (13:31)
[2022-04-09] MEDS: Lidocaine 5% Patch TD SCH (18:03)
[2022-04-09] MEDS: Enoxaparin Sodium 40 MG/0.4 ML SYRINGE SC SCH (22:18)
[2022-04-10] MEDS: traMADol HCl 50 MG TAB PO PRN (00:23)
[2022-04-10] MEDS: FENTANYL 50 MCG/ML 1 ML VIAL SLOW IVP PRN ×5 (00:33→23:38)
[2022-04-10] MEDS: Meropenem 1 GM in Sodium Chloride 0.9% 100 ML IVPB SCH ×3 (02:32→17:27)
[2022-04-10] MEDS: HumaLOG 300 UNITS/3 ML VIAL SC PRN ×2 (06:08→22:13)
[2022-04-10] MEDS: Transdermal Patch Removal TOP SCH (06:25)
[2022-04-10 06:41] LABS: Anion Gap 10 mmol/L (10-20); BUN (Urea Nitrogen) 36 mg/dL (9.8-20.1); Calc. Creatinine Clearance 86 mL/min (70-130); Calcium 8.2 mg/dL (7.8-10.44); Carbon Dioxide 24 mmol/L (23-31); Chloride 106 mmol/L (98-107); Estimated GFR 96; Glucose 182 mg/dL (83-110); Potassium 4.8 mmol/L (3.5-5.1); Sodium 135 mmol/L (136-145)
[2022-04-10 06:45] LABS: Band 24 % (5-11); Hemoglobin 9.4 g/dL (12.0-16.0); Hypochromia SLIGHT = 6-15 cells (100X) (0-5/hpf); Lymphocytes 12 % (21-51); MDiff Complete? YES; Mean Corpuscular HGB CONC 29.8 g/dL (32.0-36.0); Mean Platelet Volume 11.8 fL (7.4-10.4); Metamyelocyte 4 % (0-0); Monocytes 8 % (0-10); Neutrophil 52 % (42-75); Nucleated RBC 1 % (0); Platelet Count 97 10x3/uL (130-400); Platelet Morphology Comment Appears Decreased; Polychromasia SLIGHT = 2-3 cells (100X) (0-2/hpf); RBC Distribution Width 13.9 % (11.5-14.5); Red Blood Cell (RBC) Count 3.13 mill/uL (4.20-5.40); White Blood Cell (WBC) Count 8.7 10x3/uL (4.8-10.8)
[2022-04-10] MEDS: Pantoprazole 40 MG VIAL IVP SCH ×2 (09:52→22:14)
[2022-04-10] MEDS: methylPREDNISolone Sod Succ 40 MG VIAL IVP SCH (09:52)
[2022-04-10] MEDS: Zinc Sulfate 220 MG CAP PO SCH (10:03)
[2022-04-10] MEDS: Ascorbic Acid 500 mg Chewable Tablet PO SCH (10:04)
[2022-04-10] MEDS: Insulin NPH Human Isophane 100 UNIT/ML (10 ML VIAL) SC SCH ×2 (10:12→22:13)
[2022-04-10] MEDS ORDERED: Dicyclomine 10 MG/5 ML PO SCH (13:00)
[2022-04-10] MEDS ORDERED: Dicyclomine 20 MG/2 ML VIAL IM SCH (13:00)
[2022-04-10] MEDS: Morphine 4 MG/ML VIAL SLOW IVP PRN ×2 (13:20→23:13)
[2022-04-10] MEDS: POTASSIUM PHOSPHATE IV SCH (14:27)
[2022-04-10] MEDS: POTASSIUM ACETATE IV SCH (14:27)
[2022-04-10] MEDS: [UNRECOGNIZED DRUG - OTHER] IV SCH (14:27)
[2022-04-10] MEDS: Dicyclomine 10 MG/5 ML PO SCH ×3 (15:06→23:13)
[2022-04-10] MEDS: Lidocaine 5% Patch TD SCH (17:27)
[2022-04-10] MEDS: Enoxaparin Sodium 40 MG/0.4 ML SYRINGE SC SCH (22:13)
[2022-04-11] MEDS: Meropenem 1 GM in Sodium Chloride 0.9% 100 ML IVPB SCH ×3 (03:02→17:05)
[2022-04-11] MEDS: FENTANYL 50 MCG/ML 1 ML VIAL SLOW IVP PRN ×4 (04:19→18:33)
[2022-04-11] MEDS: HumaLOG 300 UNITS/3 ML VIAL SC PRN ×4 (04:25→22:16)
[2022-04-11] MEDS: Morphine 4 MG/ML VIAL SLOW IVP PRN (04:53)
[2022-04-11 05:32] LABS: Hemoglobin 9.2 g/dL (12.0-16.0); Mean Corpuscular HGB CONC 30.8 g/dL (32.0-36.0); Mean Corpuscular Hemoglobin 30.9 pg (27.0-31.0); Mean Platelet Volume 11.3 fL (7.4-10.4); Platelet Count 135 10x3/uL (130-400); RBC Distribution Width 13.9 % (11.5-14.5); Red Blood Cell (RBC) Count 2.98 mill/uL (4.20-5.40); White Blood Cell (WBC) Count 10.7 10x3/uL (4.8-10.8)
[2022-04-11 05:35] LABS: Anion Gap 11 mmol/L (10-20); BUN (Urea Nitrogen) 34 mg/dL (9.8-20.1); Calc. Creatinine Clearance 87 mL/min (70-130); Calcium 8.1 mg/dL (7.8-10.44); Carbon Dioxide 24 mmol/L (23-31); Chloride 105 mmol/L (98-107); Estimated GFR 96; Glucose 149 mg/dL (83-110); Potassium 4.5 mmol/L (3.5-5.1); Sodium 135 mmol/L (136-145)
[2022-04-11 06:25] LABS: MDiff Complete? YES
[2022-04-11 06:26] LABS: Band 19 % (5-11); Eosinophils 1 % (0-10); Hypochromia SLIGHT = 6-15 cells (100X) (0-5/hpf); Lymphocytes 12 % (21-51); Macrocytosis SLIGHT = 6-15 cells (100X) (0-5/hpf); Metamyelocyte 1 % (0-0); Monocytes 4 % (0-10); Myelocyte 1 % (0-0); Neutrophil 61 % (42-75); Ovalocytes SLIGHT = 2-5 cells (100X) (0-1/hpf); Platelet Morphology Comment Appears Adequate; Polychromasia SLIGHT = 2-3 cells (100X) (0-2/hpf); Reactive Lymphocytes 1 % (0-10)
[2022-04-11] MEDS: Transdermal Patch Removal TOP SCH (06:45)
[2022-04-11] MEDS: Dicyclomine 10 MG/5 ML PO SCH ×4 (08:47→22:01)
[2022-04-11] MEDS: Pantoprazole 40 MG VIAL IVP SCH ×2 (08:50→21:19)
[2022-04-11] MEDS: Ascorbic Acid 500 mg Chewable Tablet PO SCH (08:50)
[2022-04-11] MEDS: methylPREDNISolone Sod Succ 40 MG VIAL IVP SCH (08:51)
[2022-04-11] MEDS: Zinc Sulfate 220 MG CAP PO SCH (08:51)
[2022-04-11] MEDS: Insulin NPH Human Isophane 100 UNIT/ML (10 ML VIAL) SC SCH ×2 (08:52→21:26)
[2022-04-11] MEDS: traMADol HCl 50 MG TAB PO PRN ×3 (09:03→21:19)
[2022-04-11] MEDS: [UNRECOGNIZED DRUG - OTHER] IV SCH (13:40)
[2022-04-11] MEDS: POTASSIUM ACETATE IV SCH (13:40)
[2022-04-11] MEDS: POTASSIUM PHOSPHATE IV SCH (13:40)
[2022-04-11] MEDS: Ondansetron PF 4 MG/2 ML Vial IVP PRN (17:16)
[2022-04-11] MEDS: Lidocaine 5% Patch TD SCH (18:33)
[2022-04-11] MEDS: Simethicone Chewable 80 MG TAB PO PRN (21:19)
[2022-04-11] MEDS: Enoxaparin Sodium 40 MG/0.4 ML SYRINGE SC SCH (21:26)
[2022-04-12] MEDS: Meropenem 1 GM in Sodium Chloride 0.9% 100 ML IVPB SCH ×3 (03:19→17:13)
[2022-04-12] MEDS: traMADol HCl 50 MG TAB PO PRN ×2 (03:20→10:15)
[2022-04-12] MEDS: Simethicone Chewable 80 MG TAB PO PRN ×2 (03:20→09:58)
[2022-04-12 04:18] LABS: Hemoglobin 10.4 g/dL (12.0-16.0); Mean Corpuscular HGB CONC 31.6 g/dL (32.0-36.0); Mean Corpuscular Hemoglobin 31.9 pg (27.0-31.0); Mean Platelet Volume 11.3 fL (7.4-10.4); Platelet Count 184 10x3/uL (130-400); RBC Distribution Width 14.4 % (11.5-14.5); Red Blood Cell (RBC) Count 3.25 mill/uL (4.20-5.40); White Blood Cell (WBC) Count 12.1 10x3/uL (4.8-10.8)
[2022-04-12 04:30] LABS: Anion Gap 11 mmol/L (10-20); BUN (Urea Nitrogen) 38 mg/dL (9.8-20.1); Calc. Creatinine Clearance 83 mL/min (70-130); Calcium 8.1 mg/dL (7.8-10.44); Carbon Dioxide 23 mmol/L (23-31); Chloride 105 mmol/L (98-107); Estimated GFR 95; Glucose 169 mg/dL (83-110); Sodium 134 mmol/L (136-145)
[2022-04-12 04:55] LABS: Band 50 % (5-11); Hypochromia SLIGHT = 6-15 cells (100X) (0-5/hpf); Lymphocytes 6 % (21-51); MDiff Complete? YES; Monocytes 1 % (0-10); Neutrophil 40 % (42-75); Platelet Morphology Comment Appears Adequate; Reactive Lymphocytes 3 % (0-10)
[2022-04-12] MEDS: Transdermal Patch Removal TOP SCH (06:13)
[2022-04-12] MEDS: FENTANYL 50 MCG/ML 1 ML VIAL SLOW IVP PRN ×4 (06:25→22:40)
[2022-04-12] MEDS ORDERED: Phenylephrine 0.25% Nasal Spray 15 ML BOT ONE (09:52)
[2022-04-12] MEDS: Ascorbic Acid 500 mg Chewable Tablet PO SCH (09:54)
[2022-04-12] MEDS: Zinc Sulfate 220 MG CAP PO SCH (09:54)
[2022-04-12] MEDS: Insulin NPH Human Isophane 100 UNIT/ML (10 ML VIAL) SC SCH ×2 (09:54→22:45)
[2022-04-12] MEDS: Pantoprazole 40 MG VIAL IVP SCH ×2 (09:54→22:42)
[2022-04-12] MEDS: Dicyclomine 10 MG/5 ML PO SCH ×4 (10:17→22:47)
[2022-04-12] MEDS: POTASSIUM ACETATE IV SCH (14:42)
[2022-04-12] MEDS: POTASSIUM PHOSPHATE IV SCH (14:42)
[2022-04-12] MEDS: [UNRECOGNIZED DRUG - OTHER] IV SCH (14:42)
[2022-04-12] MEDS: Lidocaine 5% Patch TD SCH (17:01)
[2022-04-12] MEDS: HumaLOG 300 UNITS/3 ML VIAL SC PRN ×2 (17:15→22:45)
[2022-04-12] MEDS: Enoxaparin Sodium 40 MG/0.4 ML SYRINGE SC SCH (22:42)
[2022-04-12] MEDS: Morphine 4 MG/ML VIAL SLOW IVP PRN (23:55)
[2022-04-13] MEDS: Meropenem 1 GM in Sodium Chloride 0.9% 100 ML IVPB SCH ×3 (03:21→18:22)
[2022-04-13] MEDS: Morphine 4 MG/ML VIAL SLOW IVP PRN ×3 (03:42→15:22)
[2022-04-13 04:52] LABS: Actual Bicarbonate (HCO3v) 24 mEq/L (22-28); Base Excess -2.5 mEq/L (-2.0 to +3.0); Calcium, Ionized (venous) 1.24 mmol/L (1.16-1.32); Chloride (VBG) 105 mmol/L (98-106); Hemoglobin (Hb) 11.2 g/dL (11.7-16.1); Potassium (VBG) 5.67 mmol/L (3.70-5.30); Sodium 131.5 mmol/L (133-146); pH (venous) 7.32 (7.32-7.43)
[2022-04-13 06:05] LABS: Anion Gap 12 mmol/L (10-20); BUN (Urea Nitrogen) 53 mg/dL (9.8-20.1); Calc. Creatinine Clearance 70 mL/min (70-130); Calcium 8.6 mg/dL (7.8-10.44); Carbon Dioxide 23 mmol/L (23-31); Chloride 106 mmol/L (98-107); Estimated GFR 92; Glucose 157 mg/dL (83-110); Potassium 5.8 mmol/L (3.5-5.1); Sodium 135 mmol/L (136-145)
[2022-04-13] MEDS: Transdermal Patch Removal TOP SCH (06:06)
[2022-04-13 06:54] LABS: Anisocytosis SLIGHT = 6-15 cells (100X) (0-5/hpf); Band 39 % (5-11); Hemoglobin 10.3 g/dL (12.0-16.0); Hypochromia SLIGHT = 6-15 cells (100X) (0-5/hpf); Lymphocytes 13 % (21-51); MDiff Complete? YES; Mean Corpuscular HGB CONC 30.3 g/dL (32.0-36.0); Mean Platelet Volume 11.6 fL (7.4-10.4); Metamyelocyte 1 % (0-0); Monocytes 9 % (0-10); Myelocyte 1 % (0-0); Neutrophil 37 % (42-75); Nucleated RBC 3 % (0); Platelet Count 202 10x3/uL (130-400); Platelet Morphology Comment Appears Adequate; Polychromasia SLIGHT = 2-3 cells (100X) (0-2/hpf); RBC Distribution Width 14.6 % (11.5-14.5); Red Blood Cell (RBC) Count 3.33 mill/uL (4.20-5.40); White Blood Cell (WBC) Count 22.3 10x3/uL (4.8-10.8)
[2022-04-13] MEDS: Insulin NPH Human Isophane 100 UNIT/ML (10 ML VIAL) SC SCH (10:39)
[2022-04-13] MEDS: Pantoprazole 40 MG VIAL IVP SCH (10:39)
[2022-04-13] MEDS: Dicyclomine 10 MG/5 ML PO SCH ×4 (10:41→20:12)
[2022-04-13] MEDS: Ascorbic Acid 500 mg Chewable Tablet PO SCH (10:41)
[2022-04-13] MEDS: Zinc Sulfate 220 MG CAP PO SCH (10:42)
[2022-04-13 11:44] LABS: Magnesium 2.9 mg/dL (1.6-2.6); Phosphorus 3.8 mg/dL (2.3-4.7)
[2022-04-13] MEDS ORDERED: SODIUM ACETATE IV SCH (14:00)
[2022-04-13] MEDS ORDERED: [UNRECOGNIZED DRUG - OTHER] IV SCH (14:00)
[2022-04-13] MEDS ORDERED: SODIUM PHOSPHATE IV SCH (14:00)
[2022-04-13] MEDS: Lidocaine 5% Patch TD SCH (18:22)
[2022-04-14] MEDS: Insulin NPH Human Isophane 100 UNIT/ML (10 ML VIAL) SC SCH ×2 (01:08→08:46)
[2022-04-14] MEDS: HumaLOG 300 UNITS/3 ML VIAL SC PRN (01:08)
[2022-04-14] MEDS: Pantoprazole 40 MG VIAL IVP SCH ×2 (01:10→08:48)
[2022-04-14] MEDS: Enoxaparin Sodium 40 MG/0.4 ML SYRINGE SC SCH (01:12)
[2022-04-14] MEDS: Meropenem 1 GM in Sodium Chloride 0.9% 100 ML IVPB SCH ×2 (03:56→08:47)
[2022-04-14] MEDS: Morphine 4 MG/ML VIAL SLOW IVP PRN ×4 (03:59→18:57)
[2022-04-14] MEDS: Transdermal Patch Removal TOP SCH (06:59)
[2022-04-14] MEDS: FENTANYL 50 MCG/ML 1 ML VIAL SLOW IVP PRN ×2 (07:07→16:52)
[2022-04-14] MEDS: Ascorbic Acid 500 mg Chewable Tablet PO SCH (07:38)
[2022-04-14] MEDS: Zinc Sulfate 220 MG CAP PO SCH (07:38)
[2022-04-14] MEDS: Dicyclomine 10 MG/5 ML PO SCH ×3 (07:38→16:22)
[2022-04-14 10:52] VITALS: BMI 26.0
[2022-04-14] MEDS ORDERED: SODIUM PHOSPHATE IV SCH (14:00)
[2022-04-14] MEDS ORDERED: [UNRECOGNIZED DRUG - OTHER] IV SCH (14:00)
[2022-04-14] MEDS ORDERED: SODIUM ACETATE IV SCH (14:00)
[2022-04-14 15:41] VITALS: TEMP 98.7
[2022-04-14] MEDS: Lidocaine 5% Patch TD SCH (16:52)
[2022-04-15 14:32] LABS: Actual Bicarbonate (HCO3a) 16.2 mEq/L (22-28); Analyzer IN Cardio OR; CO2 Tension 41.5 mmHg (35.0-45.0); Calcium, Ionized (arterial) 1.02 mmol/L (1.12-1.30); Carboxyhemoglobin (COHb) 0.6 gm% (0.0-3.0); Hemoglobin (Hb) 11.4 g/dL (12.0-16.0); O2 Tension (PaO2), arterial 289.5 mmHg (> 70.0); Potassium - ABG Lab 4.35 mmol/L (3.70-5.30); Puncture Site Arterial Line; pH, Arterial 7.21 (7.35-7.45)
[2022-04-15 14:32] LABS: Actual Bicarbonate (HCO3a) 24.2 mEq/L (22-28); Analyzer IN Cardio OR; Base Excess (BEa) -1.4 mEq/L (-2.0 to +3.0); CO2 Tension 44.7 mmHg (35.0-45.0); Carboxyhemoglobin (COHb) 0.1 gm% (0.0-3.0); Hemoglobin (Hb) 9.9 g/dL (12.0-16.0); Potassium - ABG Lab 4.45 mmol/L (3.70-5.30); pH, Arterial 7.35 (7.35-7.45)
[2022-04-15 14:33] LABS: Puncture Site Arterial Line
== END 2022-04-14 19:02 | disposition hospice, inpatient (51) | DRG 853 ==
LOC: ERS 05:24 → ERHOLD 07:01 → IMCU/EMU 12:24 → T4-B 03-28 18:28 → CCU 04-01 15:33 → IMCU/EMU 04-09 20:20
PROVIDERS: ADMIT Internal Medicine; ATTEND Hospitalist
PROC: 8E0ZXY6 Isolation (ICD-10-PCS; principal; 2022-03-21)
PROC: XW033E5 Introduction of Remdesivir Anti-infective into Peripheral Vein, Percutaneous Approach, New Technology Group 5 (ICD-10-PCS; 2022-03-21)
PROC: 5A09557 Assistance with Respiratory Ventilation, Greater than 96 Consecutive Hours, Continuous Positive Airway Pressure (ICD-10-PCS; 2022-03-22)
PROC: 0DTG0ZZ Resection of Left Large Intestine, Open Approach (ICD-10-PCS; 2022-04-01)
PROC: 0D1L0Z4 Bypass Transverse Colon to Cutaneous, Open Approach (ICD-10-PCS; 2022-04-01)
PROC: 0WQF0ZZ Repair Abdominal Wall, Open Approach (ICD-10-PCS; 2022-04-01)
PROC: 0DTU0ZZ Resection of Omentum, Open Approach (ICD-10-PCS; 2022-04-01)
PROC: 3E0M05Z Introduction of Adhesion Barrier into Peritoneal Cavity, Open Approach (ICD-10-PCS; 2022-04-01)
PROC: 02HV33Z Insertion of Infusion Device into Superior Vena Cava, Percutaneous Approach (ICD-10-PCS; 2022-04-01)
PROC: 0BH17EZ Insertion of Endotracheal Airway into Trachea, Via Natural or Artificial Opening (ICD-10-PCS; 2022-04-01)
PROC: 5A1945Z Respiratory Ventilation, 24-96 Consecutive Hours (ICD-10-PCS; 2022-04-01)
PROC: 3E043XZ Introduction of Vasopressor into Central Vein, Percutaneous Approach (ICD-10-PCS; 2022-04-01)
PROC: 3E0336Z Introduction of Nutritional Substance into Peripheral Vein, Percutaneous Approach (ICD-10-PCS; 2022-04-03)
PROC: 5A0955A Assistance with Respiratory Ventilation, Greater than 96 Consecutive Hours, High Flow/Velocity Cannula (ICD-10-PCS; 2022-04-03)
DX: A41.89 Other specified sepsis (principal); G93.41 Metabolic encephalopathy; I21.A1 Myocardial infarction type 2; U07.1 COVID-19; K63.1 Perforation of intestine (nontraumatic); K65.9 Peritonitis, unspecified; J96.21 Acute and chronic respiratory failure with hypoxia; R57.8 Other shock; J12.82 Pneumonia due to coronavirus disease 2019; J81.0 Acute pulmonary edema; J96.22 Acute and chronic respiratory failure with hypercapnia; J44.1 Chronic obstructive pulmonary disease with (acute) exacerbation; K55.9 Vascular disorder of intestine, unspecified; K42.0 Umbilical hernia with obstruction, without gangrene; J44.0 Chronic obstructive pulmonary disease with (acute) lower respiratory infection; J98.11 Atelectasis; K56.7 Ileus, unspecified; N17.9 Acute kidney failure, unspecified; E44.1 Mild protein-calorie malnutrition; E87.1 Hypo-osmolality and hyponatremia; Z66 Do not resuscitate; Z51.5 Encounter for palliative care; R65.20 Severe sepsis without septic shock; E87.5 Hyperkalemia; K59.00 Constipation, unspecified; R53.81 Other malaise; D69.6 Thrombocytopenia, unspecified; E87.6 Hypokalemia; F17.210 Nicotine dependence, cigarettes, uncomplicated; E11.65 Type 2 diabetes mellitus with hyperglycemia; D50.0 Iron deficiency anemia secondary to blood loss (chronic); E83.42 Hypomagnesemia; R63.0 Anorexia; Z79.899 Other long term (current) drug therapy; Z87.01 Personal history of pneumonia (recurrent); Z79.52 Long term (current) use of systemic steroids; Z90.89 Acquired absence of other organs; Z98.49 Cataract extraction status, unspecified eye; Z98.51 Tubal ligation status; Z80.9 Family history of malignant neoplasm, unspecified; Z99.81 Dependence on supplemental oxygen; Z71.6 Tobacco abuse counseling; Z68.26 Body mass index [BMI] 26.0-26.9, adult
CPT/HCPCS: 36415; 36416; 36600; 71045; 71046; 74018; 74177; 80048; 80053; 80061; 80076; 82553; 82805; 83605; 83735; 83880; 84100; 84134; 84145; 84146; 84484; 85025; 85049; 85060; 85300; 85362; 85379; 85384; 85610; 85652; 85730; 86140; 87040; 87086; 88307; 93005; 93010; 94002; 94003; 94640; 94660; 96365; 96375; 97139; A4649; C1751; C1776; C9113; J0248; J0360; J0456; J0610; J0696; J1100; J1650; J1720; J1815; J1885; J1940; J2185; J2248; J2250; J2270; J2370; J2405; J2543; J2920; J2930; J3010; J3475; J3480; J3490; J7050; J7070; J7120; J7512; J7608; J7620; P9045; P9047; Q9967

== ENCOUNTER 2022-04-14 19:12 | Inpatient (IN) | payer OTHER ==
[2022-04-14 19:40] VITALS: BMI 26.0
[2022-04-14] MEDS ORDERED: Scopolamine 1.5 mg/72 hour Patch TOP PRN (20:03)
[2022-04-14] MEDS: Lorazepam 2 MG/ML VIAL SLOW IVP SCH (20:59)
[2022-04-14] MEDS: Morphine 4 MG/ML VIAL SLOW IVP SCH (20:59)
[2022-04-14] MEDS: Morphine 4 MG/ML VIAL SLOW IVP PRN (22:21)
[2022-04-15 00:12] VITALS: TEMP 97.6
[2022-04-15] MEDS: Morphine 4 MG/ML VIAL SLOW IVP SCH (00:49)
[2022-04-15] MEDS: Lorazepam 2 MG/ML VIAL SLOW IVP SCH (00:50)
[2022-04-15] MEDS: Morphine 4 MG/ML VIAL SLOW IVP PRN (02:06)
== END 2022-04-15 03:01 | disposition expired | DRG 951 ==
LOC: IMCU/EMU 19:12
PROVIDERS: ADMIT Family Medicine; ATTEND Family Medicine
DX: Z51.5 Encounter for palliative care (principal); U07.1 COVID-19; J44.1 Chronic obstructive pulmonary disease with (acute) exacerbation; Z66 Do not resuscitate; E78.5 Hyperlipidemia, unspecified; F17.210 Nicotine dependence, cigarettes, uncomplicated; Z87.01 Personal history of pneumonia (recurrent); Z79.899 Other long term (current) drug therapy; Z79.52 Long term (current) use of systemic steroids; Z90.89 Acquired absence of other organs; Z98.51 Tubal ligation status; Z98.49 Cataract extraction status, unspecified eye; Z80.9 Family history of malignant neoplasm, unspecified
CPT/HCPCS: J2060; J2270